=== PATIENT | female | born 1940 | race American Indian/Alaskan Native ===

== ENCOUNTER 2017-07-21 21:03 | Emergency (ER) | payer OTHER ==
--- NOTE | 2017-07-21 21:22 | EDM.PDOC ---
ED HPI GENERAL MEDICAL PROBLEM - General Chief Complaint: General Stated Complaint: back hurt [id number] Time Seen by Provider: 07/21/17 21:17 Source of Information: Reports: Patient, Family History Limitations: Reports: Altered Mental Status - History of Present Illness INITIAL COMMENTS - FREE TEXT/NARRATIVE: pt states recall sitting on toilet and woke up on the floor. family states heard pt calling for help and found her on the floor conscious but disoriented. pt unsure if her head really hurts just feels dizzy but her ankle does. pt appears somewhat disoriented presently. denies h/o seizures. denies chest pain at present. no SOB. - Related Data Allergies Allergy/AdvReac Type Severity Reaction Status Date / Time No Known Allergies Allergy Verified 07/21/17 21:08 Home Meds: Home Meds Amlodipine 10 mg PO ASDIRECTED 06/27/13 [History] Atenolol 50 mg PO ASDIRECTED 06/27/13 [History] Furosemide 20 mg PO ASDIRECTED 06/27/13 [History] Gabapentin 600 mg PO ASDIRECTED 06/27/13 [History] Latanoprost 1 drp EYEBOTH ASDIRECTED 06/27/13 [History] Naproxen [Naprosyn] 500 mg PO ASDIRECTED 06/27/13 [History] Omeprazole 20 mg PO DAILY 12/28/13 [History] Trospium Chloride 20 mg PO DAILY 07/21/17 [History] Social & Family History - Tobacco Use Smoking Status *Q: Never Smoker Second Hand Smoke Exposure: Yes - Alcohol Use Days Per Week of Alcohol Use: 0 - Recreational Drug Use Recreational Drug Use: No ED ROS GENERAL - Review of Systems Review Of Systems: ROS reveals no pertinent complaints other than HPI. ED EXAM, GENERAL - Physical Exam Exam: See Below Exam Limited By: No Limitations General Appearance: Alert, WD/WN, Mild Distress, Other (distraught) Eye Exam: Bilateral Eye: PERRL (pupils ess ER @ 4mm) Ears: Hearing Grossly Normal Head: Other (no O/B, no grossly palpable tenderness) Neck: Non-Tender, Full Range of Motion Respiratory/Chest: No Respiratory Distress Cardiovascular: Regular Rate, Rhythm GI/Abdominal: Soft, Non-Tender Neurological: Alert, Normal Cognition, Normal Gait, No Motor/Sensory Deficits Psychiatric: Flat Affect Skin Exam: Warm, Dry, Normal Color Lymphatic: No Adenopathy Course - Vital Signs Last Recorded V/S: Last Vital Signs Temp 35.8 C 07/21/17 21:10 Pulse 78 07/21/17 21:10 Resp 20 07/21/17 21:10 BP 125/59 L 07/21/17 21:10 Pulse Ox 94 L 07/21/17 21:10 - Orders/Labs/Meds Orders: Active Orders 24 hr Category Date Time Status EKG 12 Lead [EKG Documentation Completion] [RC] STAT Care 07/21/17 21:15 Active Sodium Chloride 0.9% [Normal Saline] 500 ml Med 07/21/17 22:15 Active IV .BOLUS Medication Orders Sodium Chloride (Normal Saline) 500 mls @ 999 mls/hr IV .BOLUS YUE Last Admin: 07/21/17 22:16 Dose: 999 mls/hr Labs: Laboratory Tests 07/21/17 07/21/17 Range/Units 21:25 21:25 WBC 10.5 H (5.0-10.0) 10^3/uL RBC 4.07 L (4.2-5.4) 10^6/uL Hgb 11.9 L (12.0-16.0) g/dL Hct 35.5 L (37.0-47.0) % MCV 87.2 (80-100) fL MCH 29.2 (27.0-34.0) pg MCHC 33.5 (33.0-35.0) g/dL Plt Count 208 D (150-450) 10^3/uL Neut % (Auto) 85.0 H (42.2-75.2) % Lymph % (Auto) 6.4 L (20.5-50.1) % [place] % (Auto) 7.0 (2-8) % Eos % (Auto) 1.5 (1.0-3.0) % Baso % (Auto) 0.1 (0.0-1.0) % Sodium 122 L (135-145) mmol/L Potassium 3.6 (3.6-5.0) mmol/L Chloride 88 L (101-111) mmol/L Carbon Dioxide 25.0 (21.0-31.0) mmol/L Anion Gap 12.6 BUN 11 (7-18) mg/dL Creatinine 0.6 (0.6-1.3) mg/dL Est Cr Clr Drug Dosing 74.67 mL/min Estimated GFR (MDRD) > 60 BUN/Creatinine Ratio 18.33 Glucose 182 H (74-105) mg/dL Calcium 8.6 (8.4-10.2) mg/dl Total Bilirubin 0.6 (0.2-1.0) mg/dL AST 24 (10-42) IU/L ALT 13 (10-60) IU/L Alkaline Phosphatase 121 (42-121) IU/L Troponin I < 0.02 (0.00-0.02) ng/ml Total Protein 7.2 (6.7-8.2) g/dl Albumin 3.4 (3.2-5.5) g/dl Globulin 3.8 Albumin/Globulin Ratio 0.89 Meds: Medications Generic Name Dose Route Start Last Admin Trade Name Freq PRN Reason Stop Dose Admin Sodium Chloride 500 mls @ 999 mls/hr 07/21/17 22:15 07/21/17 22:16 Normal Saline IV 999 mls/hr .BOLUS YUE Administration - Re-Assessments/Exams Free Text/Narrative Re-Assessment/Exam: 07/21/17 22:14 results discussed with pt & family. pt declined transf to GF and wants to go home. but family wishes pt could get IV here for low sodium. pt concurred. 07/21/17 23:04 s/p IV = much better and still prefers home. Departure - Departure Time of Disposition: 23:05 Disposition: Home, Self-Care 01 Condition: Good Clinical Impression: Hyponatremia syndrome Syncope Qualifiers: Syncope type: unspecified Qualified Code(s): R55 - Syncope and collapse - Discharge Information Instructions: Near-Syncope, [id number] Forms: ED Department Discharge Additional Instructions: 1) rest 2) return if there is any change or concern 3) see clinic Sunday to determine if LASIX can be stopped or decrease to treat her low sodium - My Orders Last 24 Hours: My Active Orders 07/21/17 21:15 EKG 12 Lead [EKG Documentation Completion] [RC] STAT 07/21/17 22:15 Sodium Chloride 0.9% [Normal Saline] 500 ml IV .BOLUS - Assessment/Plan Last 24 Hours: My Active Orders 07/21/17 21:15 EKG 12 Lead [EKG Documentation Completion] [RC] STAT 07/21/17 22:15 Sodium Chloride 0.9% [Normal Saline] 500 ml IV .BOLUS
[2017-07-21 21:50] LABS: CHLORIDE,CL 88 mmol/L (101-111); SODIUM,NA 122 mmol/L (135-145)
[2017-07-21] MEDS ORDERED: Sodium Chloride 0.9% 500 ML IV SCH (22:15)
--- NOTE | 2017-07-23 12:08 | EKG ---
07/21/2017 - KANA WOODY - FINDINGS: A 12-lead EKG shows normal sinus rhythm with heart rate of 77. No significant ST elevation or ST depression noted at this time, but nonspecific T- wave noted on all the lateral leads from V1 to V6 with T-wave inversions and nonspecific interventricular conduction delay noted. [facility] /[id number]
== END 2017-07-21 23:10 | disposition home or self-care (01) ==
LOC: DL.ED 21:03
DX: E22.2 Syndrome of inappropriate secretion of antidiuretic hormone (principal); R55 Syncope and collapse; Z79.899 Other long term (current) drug therapy
CPT/HCPCS: 36415; 70450; 73600; 80053; 84484; 85025; 93005; 96360; 99285; J7040

== ENCOUNTER 2017-07-24 17:29 | Inpatient (IN) | payer OTHER ==
[2017-07-24] MEDS ORDERED: Albuterol/Ipratropium 3.0-0.5 MG/3 ML Neb Soln NEB ONE (17:51)
[2017-07-24] MEDS ORDERED: Ondansetron 4 MG/2 ML SDV IV ONE (18:00)
[2017-07-24] MEDS ORDERED: Sodium Chloride 0.9% 1,000 ML IV ONE (18:00)
[2017-07-24] MEDS ORDERED: methylPREDNISolone Sodium Succinate 125 MG/2 ML SDV IVPUSH ONE (18:00)
[2017-07-24] MEDS: Sodium Chloride 0.9% 10 ML Syringe FLUSH PRN (18:36)
[2017-07-24] MEDS ORDERED: Levofloxacin/Dextrose 5%-Water 750 MG in Premix Bag 1 BAG IV ONE (18:53)
[2017-07-24 18:57] LABS: CHLORIDE,CL 92 mmol/L (101-111); SODIUM,NA 126 mmol/L (135-145)
--- NOTE | 2017-07-24 19:02 | EDM.PDOC ---
Scribed by Sirena Gordon 07/24/17 190 for Ronald Diaz MD ED HPI GENERAL MEDICAL PROBLEM - General Chief Complaint: Respiratory Problem Stated Complaint: [id number] KEEP COUGHING Time Seen by Provider: 07/24/17 17:49 Source of Information: Reports: Patient, RN, RN Notes Reviewed History Limitations: Reports: No Limitations - History of Present Illness INITIAL COMMENTS - FREE TEXT/NARRATIVE: Patient presents from home by private vehicle with complaint of cough since July 19. She has had fever, chills, sputum production, wheezing, nausea, loss of appetite, and generalized weakness. Patient states that she got weak and fell to the floor on July 21 and seen in the emergency room at that time. She did not complain or say anything about her cough. She was diagnosed with syncope , but refused to be transferred to admitted at that time. She was found to be hyponatremic with a sodium of 122. Denies chest pain or edema. Denies history of asthma or COPD. Patient was never a smoker, but had near constant second hand smoke exposure for nearly over 50 years. Onset: Gradual Duration: Getting Worse Location: Reports: Chest Quality: Reports: Ache Severity: Severe Improves with: Reports: None Worsens with: Reports: None Associated Symptoms: Reports: No Other Symptoms - Related Data Allergies Allergy/AdvReac Type Severity Reaction Status Date / Time No Known Allergies Allergy Verified 07/24/17 17:48 Home Meds: Home Meds Amlodipine 10 mg PO ASDIRECTED 06/27/13 [History] Atenolol 50 mg PO ASDIRECTED 06/27/13 [History] Furosemide 20 mg PO ASDIRECTED 06/27/13 [History] Gabapentin 600 mg PO ASDIRECTED 06/27/13 [History] Latanoprost 1 drp EYEBOTH ASDIRECTED 06/27/13 [History] Naproxen [Naprosyn] 500 mg PO ASDIRECTED 06/27/13 [History] Omeprazole 20 mg PO DAILY 12/28/13 [History] Trospium Chloride 20 mg PO DAILY 07/21/17 [History] Past Medical History Cardiovascular History: Reports: Hypertension Genitourinary History: Reports: UTI, Recurrent Musculoskeletal History: Reports: Back Pain, Chronic - Past Surgical History Female Surgical History: Reports: Ureteral Stent Social & Family History - Family History Family Medical History: Noncontributory - Tobacco Use Smoking Status *Q: Never Smoker Second Hand Smoke Exposure: Yes - Caffeine Use Caffeine Use: Reports: None - Alcohol Use Days Per Week of Alcohol Use: 0 - Recreational Drug Use Recreational Drug Use: No - Living Situation & Occupation Living situation: Reports: with Family Occupation: Retired ED ROS GENERAL - Review of Systems Review Of Systems: ROS reveals no pertinent complaints other than HPI. ED EXAM, GENERAL - Physical Exam Exam: See Below Exam Limited By: No Limitations General Appearance: Alert, No Apparent Distress, Obese, Other (acutely ill but non-toxic appearing elderly female. ) Eye Exam: Bilateral Eye: Normal Inspection Ears: Normal External Exam, Normal Canal, Hearing Grossly Normal, Normal TMs Nose: Normal Inspection, Normal Mucosa, No Blood Throat/Mouth: Other (dry oral membranes and mild pharyngeal edema.) Head: Atraumatic, Normocephalic Neck: Normal Inspection, Supple, Non-Tender, Full Range of Motion Respiratory/Chest: No Respiratory Distress, No Accessory Muscle Use, Chest Non- Tender, Decreased Breath Sounds, Crackles, Rhonchi, Wheezing. No: Splinting Cardiovascular: Regular Rate, Rhythm, Tachycardia GI/Abdominal: Other (benign obese abdomen) (Female) Exam: Deferred Rectal (Female) Exam: Deferred Back Exam: Normal Inspection, Full Range of Motion, NT Extremities: No Pedal Edema Neurological: Alert, Oriented, CN II-XII Intact, Normal Cognition, Normal Gait, Normal Reflexes, No Motor/Sensory Deficits Psychiatric: Normal Affect, Normal Mood Skin Exam: Warm, Dry, Intact, Normal Color, No Rash Course - Vital Signs Last Recorded V/S: Last Vital Signs Temp 38.1 C 07/24/17 17:48 Pulse 94 07/24/17 17:48 Resp 20 07/24/17 17:48 BP 124/96 H 07/24/17 17:48 Pulse Ox 84 L 07/24/17 17:48 - Orders/Labs/Meds Orders: Active Orders 24 hr Category Date Time Status Peripheral IV Care [RC] . DIRECTED Care 07/24/17 17:50 Active RT Aerosol Therapy [RC] ASDIRECTED Care 07/24/17 17:51 Active B-TYPE NATRIURETIC PEPTIDE,BNP [CHEM] Stat Lab 07/24/17 18:20 Results COMPREHENSIVE METABOLIC PN,CMP [CHEM] Stat Lab 07/24/17 18:20 Results CULTURE BLOOD [BC] Stat Lab 07/24/17 18:20 Received CULTURE BLOOD [] Stat Lab 07/24/17 18:28 Received CULTURE STREP A CONFIRMATION [] Stat Lab 07/24/17 17:30 Results STREP SCRN A RAPID W CULT CONF [] Stat Lab 07/24/17 17:30 Results UA W/MICROSCOPIC [URIN] Stat Lab 07/24/17 17:49 Ordered Levofloxacin/Dextrose 5%-Water [Levaquin in D5W 750 MG/ Med 07/24/17 18:53 Active 150 ML] 750 mg Premix Bag 1 bag IV ONETIME Sodium Chloride 0.9% [Saline Flush] Med 07/24/17 17:49 Active 10 ml FLUSH ASDIRECTED PRN Blood Culture x2 Reflex Set [OM.PC] Stat Oth 07/24/17 17:49 Ordered Peripheral IV Insertion Adult [OM.PC] Stat Oth 07/24/17 17:49 Ordered Medication Orders Levofloxacin/Dextrose 750 mg/ (Premix) 150 mls @ 100 mls/hr IV ONETIME ONE Stop: 07/24/17 20:22 Sodium Chloride (Saline Flush) 10 ml FLUSH ASDIRECTED PRN PRN Reason: Keep Vein Open Last Admin: 07/24/17 18:36 Dose: 10 ml Labs: Laboratory Tests 07/24/17 07/24/17 07/24/17 Range/Units 18:20 18:20 18:20 WBC 13.5 H (5.0-10.0) 10^3/uL RBC 4.26 (4.2-5.4) 10^6/uL Hgb 12.4 (12.0-16.0) g/dL Hct 38.1 (37.0-47.0) % MCV 89.4 (80-100) fL MCH 29.1 (27.0-34.0) pg MCHC 32.5 L (33.0-35.0) g/dL Plt Count 205 (150-450) 10^3/uL Neut % (Auto) 86.4 H (42.2-75.2) % Lymph % (Auto) 5.6 L (20.5-50.1) % [place] % (Auto) 7.8 (2-8) % Eos % (Auto) 0.1 L (1.0-3.0) % Baso % (Auto) 0.1 (0.0-1.0) % Sodium 126 L (135-145) mmol/L Potassium 3.7 (3.6-5.0) mmol/L Chloride 92 L (101-111) mmol/L Carbon Dioxide 27.0 (21.0-31.0) mmol/L Anion Gap 10.7 BUN 9 (7-18) mg/dL Creatinine 0.6 (0.6-1.3) mg/dL Est Cr Clr Drug Dosing 74.67 mL/min Estimated GFR (MDRD) > 60 BUN/Creatinine Ratio 15.00 Glucose 134 H (74-105) mg/dL Lactic Acid 1.5 (0.5-2.2) mmol/L Calcium 9.0 (8.4-10.2) mg/dl Total Bilirubin 1.0 (0.2-1.0) mg/dL AST 21 (10-42) IU/L ALT 13 (10-60) IU/L Alkaline Phosphatase 111 (42-121) IU/L Total Protein 7.9 (6.7-8.2) g/dl Albumin 3.3 (3.2-5.5) g/dl Globulin 4.6 Albumin/Globulin Ratio 0.72 Rapid strep: Negative. Influenza A/B: Negative Meds: Medications Generic Name Dose Route Start Last Admin Trade Name Freq PRN Reason Stop Dose Admin Levofloxacin/Dextrose 750 mg/ 150 mls @ 100 mls/hr 07/24/17 18:53 Premix IV 07/24/17 20:22 ONETIME ONE Sodium Chloride 10 ml 07/24/17 17:49 07/24/17 18:36 Saline Flush FLUSH 10 ml ASDIRECTED PRN Administration Keep Vein Open Discontinued Medications Generic Name Dose Route Start Last Admin Trade Name Freq PRN Reason Stop Dose Admin Albuterol/Ipratropium 3 ml 07/24/17 17:51 07/24/17 18:30 Duoneb 3.0-0.5 Mg/3 Ml NEB 07/24/17 17:52 3 ml ONETIME ONE Administration Sodium Chloride 1,000 mls @ 999 mls/hr 07/24/17 18:00 07/24/17 18:36 Normal Saline IV 07/24/17 19:00 999 mls/hr .BOLUS ONE Administration Methylprednisolone Sodium Succinate 125 mg 07/24/17 18:00 07/24/17 18:36 Solu-Medrol IVPUSH 07/24/17 18:01 125 mg ONETIME ONE Administration Ondansetron HCl 4 mg 07/24/17 18:00 07/24/17 18:36 Zofran IV 07/24/17 18:01 4 mg ONETIME ONE Administration - Radiology Interpretation Free Text/Narrative:: Chest x-ray: Bibasilar atelectasis with possible infiltrate in the right lower lobe. See rad report. Departure - Departure Time of Disposition: 19:01 (admitted to Dr. Ta) Disposition: Admitted As Inpatient 66 Condition: Fair Clinical Impression: Chronic obstructive pulmonary disease with acute exacerbation, Hypoxia, Hyponatremia Pneumonia Qualifiers: Pneumonia type: due to unspecified organism Laterality: right Lung location: lower lobe of lung Qualified Code(s): J18.1 - Lobar pneumonia, unspecified organism - Discharge Information Forms: ED Department Discharge - My Orders Last 24 Hours: My Active Orders 07/24/17 17:30 CULTURE STREP A CONFIRMATION [RM] Stat STREP SCRN A RAPID W CULT CONF [RM] Stat 07/24/17 17:49 UA W/MICROSCOPIC [URIN] Stat Sodium Chloride 0.9% [Saline Flush] 10 ml FLUSH ASDIRECTED PRN Blood Culture x2 Reflex Set [OM.PC] Stat Peripheral IV Insertion Adult [OM.PC] Stat 07/24/17 17:50 Peripheral IV Care [RC] . DIRECTED 07/24/17 17:51 RT Aerosol Therapy [RC] ASDIRECTED 07/24/17 18:20 B-TYPE NATRIURETIC PEPTIDE,BNP [CHEM] Stat COMPREHENSIVE METABOLIC PN,CMP [CHEM] Stat CULTURE BLOOD [BC] Stat 07/24/17 18:28 CULTURE BLOOD [BC] Stat 07/24/17 18:53 Levofloxacin/Dextrose 5%-Water [Levaquin in D5W 750 MG/150 ML] 750 mg Premix Bag 1 bag IV ONETIME - Assessment/Plan Last 24 Hours: My Active Orders 07/24/17 17:30 CULTURE STREP A CONFIRMATION [RM] Stat STREP SCRN A RAPID W CULT CONF [RM] Stat 07/24/17 17:49 UA W/MICROSCOPIC [URIN] Stat Sodium Chloride 0.9% [Saline Flush] 10 ml FLUSH ASDIRECTED PRN Blood Culture x2 Reflex Set [OM.PC] Stat Peripheral IV Insertion Adult [OM.PC] Stat 07/24/17 17:50 Peripheral IV Care [RC] . DIRECTED 07/24/17 17:51 RT Aerosol Therapy [RC] ASDIRECTED 07/24/17 18:20 B-TYPE NATRIURETIC PEPTIDE,BNP [CHEM] Stat COMPREHENSIVE METABOLIC PN,CMP [CHEM] Stat CULTURE BLOOD [BC] Stat 07/24/17 18:28 CULTURE BLOOD [BC] Stat 07/24/17 18:53 Levofloxacin/Dextrose 5%-Water [Levaquin in D5W 750 MG/150 ML] 750 mg Premix Bag 1 bag IV ONETIME I have read and agree with the documentation that has been completed regarding this visit. By signing this record, I attest that the documentation was completed in my physical presence and is an accurate record of the encounter.
[2017-07-24] MEDS ORDERED: cefTRIAXone 1 GM in Sodium Chloride 0.9% 50 ML IV SCH (20:00)
[2017-07-24] MEDS ORDERED: Zolpidem 5 MG Tab PO PRN (20:12)
[2017-07-24] MEDS ORDERED: Sodium Chloride 0.9% 1,000 ML IV SCH (20:15)
--- NOTE | 2017-07-24 20:29 | PCM.HP ---
H&P History of Present Illness - General Date of Service: 07/24/17 Admit Problem/Dx: Admission Diagnosis/Problem Admission Diagnosis/Problem Pneumonia Source of Information: Patient, Provider (ER) - History of Present Illness Initial Comments - Free Text/Narative: The patient is a 76-year-old lady with a history of secondhand smoking exposure , hypertension, overactive bladder. In the past few days the patient has been experiencing subjective the chills, temperature up to 100, increasing shortness of breath. She has a cough which is mostly nonproductive. Similar symptoms present in another family member. Family member was diagnosed with sinusitis. The patient recently had a ER visit for a possible syncopal episode. She was also noted to have hyponatremia. She denies chest pain, headache, further syncopal episodes. - Related Data Allergies/Adverse Reactions: Allergies Allergy/AdvReac Type Severity Reaction Status Date / Time No Known Allergies Allergy Verified 07/24/17 20:17 Home Medications: Home Meds Amlodipine 10 mg PO ASDIRECTED 06/27/13 [History] Atenolol 50 mg PO ASDIRECTED 06/27/13 [History] Furosemide 20 mg PO ASDIRECTED 06/27/13 [History] Gabapentin 600 mg PO ASDIRECTED 06/27/13 [History] Latanoprost 1 drp EYEBOTH ASDIRECTED 06/27/13 [History] Naproxen [Naprosyn] 500 mg PO ASDIRECTED 06/27/13 [History] Omeprazole 20 mg PO DAILY 12/28/13 [History] Trospium Chloride 20 mg PO DAILY 07/21/17 [History] Past Medical History HEENT History: Reports: Impaired Vision Cardiovascular History: Reports: Hypertension Gastrointestinal History: Reports: GERD Genitourinary History: Reports: UTI, Recurrent [employer] History: Reports: Musculoskeletal History: Reports: Back Pain, Chronic - Past Surgical History Female Surgical History: Reports: Ureteral Stent Social & Family History - Family History Family Medical History: Noncontributory - Tobacco Use Smoking Status *Q: Never Smoker Second Hand Smoke Exposure: No - Caffeine Use Caffeine Use: Reports: None - Alcohol Use Days Per Week of Alcohol Use: 0 - Recreational Drug Use Recreational Drug Use: No - Living Situation & Occupation Living situation: Reports: with Family Occupation: Retired H&P Review of Systems - Review of Systems: Review Of Systems: See Below General: Reports: Fever (Up to 100), Malaise, Weakness Pulmonary: Reports: Shortness of Breath, Wheezing, Cough. Denies: Sputum Cardiovascular: Denies: Chest Pain Gastrointestinal: Denies: Abdominal Pain Genitourinary: Denies: Dysuria Skin: Reports: Rash (Developed rash after starting the administration of levofloxacin) Psychiatric: Denies: Confusion Neurological: Denies: Dizziness Exam - Exam Exam: See Below - Vital Signs Vital Signs: Last Vital Signs Temp 37.4 C 07/24/17 19:46 Pulse 103 H 07/24/17 19:46 Resp 16 07/24/17 19:46 BP 133/49 L 07/24/17 19:46 Pulse Ox 85 L 07/24/17 19:46 Weight: 92.193 kg - Exam Quality Assessment: Supplemental Oxygen General: Alert, Oriented Neck: Supple Lungs: Normal Respiratory Effort, Decreased Breath Sounds, Rhonchi (Bilateral) Cardiovascular: Regular Rate, Regular Rhythm GI/Abdominal Exam: Normal Bowel Sounds, Soft, Non-Tender Extremities: No Pedal Edema Skin: Warm, Dry Neuro Extensive - Mental Status: Alert, Oriented x3, Normal Mood/Affect Neuro Extensive - Motor, Sensory, Reflexes: Normal Gait - Patient Data Lab Results Last 24 hrs: Laboratory Results - last 24 hr 07/24/17 07/24/17 07/24/17 Range/Units 18:20 18:20 18:20 WBC 13.5 H (5.0-10.0) 10^3/uL RBC 4.26 (4.2-5.4) 10^6/uL Hgb 12.4 (12.0-16.0) g/dL Hct 38.1 (37.0-47.0) % MCV 89.4 (80-100) fL MCH 29.1 (27.0-34.0) pg MCHC 32.5 L (33.0-35.0) g/dL Plt Count 205 (150-450) 10^3/uL Neut % (Auto) 86.4 H (42.2-75.2) % Lymph % (Auto) 5.6 L (20.5-50.1) % [place] % (Auto) 7.8 (2-8) % Eos % (Auto) 0.1 L (1.0-3.0) % Baso % (Auto) 0.1 (0.0-1.0) % Sodium 126 L (135-145) mmol/L Potassium 3.7 (3.6-5.0) mmol/L Chloride 92 L (101-111) mmol/L Carbon Dioxide 27.0 (21.0-31.0) mmol/L Anion Gap 10.7 BUN 9 (7-18) mg/dL Creatinine 0.6 (0.6-1.3) mg/dL Est Cr Clr Drug Dosing 74.67 mL/min Estimated GFR (MDRD) > 60 BUN/Creatinine Ratio 15.00 Glucose 134 H (74-105) mg/dL Lactic Acid 1.5 (0.5-2.2) mmol/L Calcium 9.0 (8.4-10.2) mg/dl Total Bilirubin 1.0 (0.2-1.0) mg/dL AST 21 (10-42) IU/L ALT 13 (10-60) IU/L Alkaline Phosphatase 111 (42-121) IU/L B-Natriuretic Peptide 74 (0-100) pg/ml Total Protein 7.9 (6.7-8.2) g/dl Albumin 3.3 (3.2-5.5) g/dl Globulin 4.6 Albumin/Globulin Ratio 0.72 Urine Color (YELLOW) Urine Appearance (CLEAR) Urine pH (5.0-9.0) Ur Specific [place] (1.005-1.030) Urine Protein (NEGATIVE) Urine Glucose (UA) (NEGATIVE) Urine Ketones (NEGATIVE) Urine Occult Blood (NEGATIVE) Urine Nitrite (NEGATIVE) Urine Bilirubin (NEGATIVE) Urine Urobilinogen (0.2-1.0) mg/dL Ur Leukocyte Esterase (NEGATIVE) 07/24/17 Range/Units 19:28 WBC (5.0-10.0) 10^3/uL RBC (4.2-5.4) 10^6/uL Hgb (12.0-16.0) g/dL Hct (37.0-47.0) % MCV (80-100) fL MCH (27.0-34.0) pg MCHC (33.0-35.0) g/dL Plt Count (150-450) 10^3/uL Neut % (Auto) (42.2-75.2) % Lymph % (Auto) (20.5-50.1) % [place] % (Auto) (2-8) % Eos % (Auto) (1.0-3.0) % Baso % (Auto) (0.0-1.0) % Sodium (135-145) mmol/L Potassium (3.6-5.0) mmol/L Chloride (101-111) mmol/L Carbon Dioxide (21.0-31.0) mmol/L Anion Gap BUN (7-18) mg/dL Creatinine (0.6-1.3) mg/dL Est Cr Clr Drug Dosing mL/min Estimated GFR (MDRD) BUN/Creatinine Ratio Glucose (74-105) mg/dL Lactic Acid (0.5-2.2) mmol/L Calcium (8.4-10.2) mg/dl Total Bilirubin (0.2-1.0) mg/dL AST (10-42) IU/L ALT (10-60) IU/L Alkaline Phosphatase (42-121) IU/L B-Natriuretic Peptide (0-100) pg/ml Total Protein (6.7-8.2) g/dl Albumin (3.2-5.5) g/dl Globulin Albumin/Globulin Ratio Urine Color Yellow (YELLOW) Urine Appearance Slightly cloudy (CLEAR) Urine pH 7.0 (5.0-9.0) Ur Specific [place] 1.020 (1.005-1.030) Urine Protein 100 H (NEGATIVE) Urine Glucose (UA) Negative (NEGATIVE) Urine Ketones Negative (NEGATIVE) Urine Occult Blood Large H (NEGATIVE) Urine Nitrite Negative (NEGATIVE) Urine Bilirubin Small H (NEGATIVE) Urine Urobilinogen 0.2 (0.2-1.0) mg/dL Ur Leukocyte Esterase Small H (NEGATIVE) Result Diagrams: 07/24/17 18:20 07/24/17 18:20 Thaddeus Results Last 24 hrs: Microbiology 07/24/17 17:30 Influenza Type A Antigen Screen - Final Nasal, Unspecified NEGATIVE INFLUENZA A VIRUS AG Influenza Type B Antigen Screen - Final NEGATIVE INFLUENZA B VIRUS AG 07/24/17 17:30 Group A Streptococcus Rapid Screen - Final Throat NEGATIVE STREP A SCREEN Problem List Initiated/Reviewed/Updated: Yes Orders Last 24hrs: Active Orders 24 hr Category Date Time Status Patient Status [ADT] Routine ADT 07/24/17 20:12 Ordered Oxygen Therapy [RC] PRN Care 07/24/17 20:12 Ordered Peripheral IV Care [RC] . DIRECTED Care 07/24/17 17:50 Active RT Aerosol Therapy [RC] ASDIRECTED Care 07/24/17 17:51 Active Up With Assistance [RC] ASDIRECTED Care 07/24/17 20:12 Ordered VTE/DVT Education [RC] PER UNIT ROUTINE Care 07/24/17 20:12 Ordered Vital Signs [RC] Q4H Care 07/24/17 20:12 Ordered Regular Diet [DIET] Diet 07/24/17 Breakfast Ordered BASIC METABOLIC PANEL,BMP [CHEM] AM Lab 07/25/17 05:15 Ordered CBC WITH AUTO DIFF [HEME] AM Lab 07/25/17 05:15 Ordered CULTURE BLOOD [BC] Stat Lab 07/24/17 18:20 Received CULTURE BLOOD [BC] Stat Lab 07/24/17 18:28 Received CULTURE SPUTUM + SMEAR [RM] Routine Lab 07/24/17 20:00 Ordered CULTURE STREP A CONFIRMATION [] Stat Lab 07/24/17 17:30 Results STREP SCRN A RAPID W CULT CONF [RM] Stat Lab 07/24/17 17:30 Results UA W/MICROSCOPIC [URIN] Stat Lab 07/24/17 19:28 Ordered Acetaminophen [Tylenol] Med 07/24/17 20:12 Ordered 650 mg PO Q4H PRN Amlodipine Med 07/25/17 09:00 Ordered 10 mg PO DAILY Atenolol Med 07/25/17 09:00 Ordered 50 mg PO DAILY Azithromycin [Zithromax] 500 mg Med 07/24/17 20:15 Ordered Sodium Chloride 0.9% [Normal Saline] 250 ml IV Q24H Furosemide [Lasix] Med 07/25/17 09:00 Ordered 20 mg PO DAILY Heparin Sodium Med 07/24/17 22:00 Ordered 5,000 units SUBCUT Q8HR Latanoprost [Xalatan 0.005% Ophth Soln] Med 07/24/17 21:00 Ordered 1 drp EYEBOTH BID Omeprazole Med 07/25/17 09:00 Ordered 20 mg PO DAILY Sodium Chloride 0.9% [Normal Saline] 1,000 ml Med 07/24/17 20:15 Ordered IV ASDIRECTED Sodium Chloride 0.9% [Saline Flush] Med 07/24/17 17:49 Active 10 ml FLUSH ASDIRECTED PRN Zolpidem [Ambien] Med 07/24/17 20:12 Ordered 5 mg PO BEDTIME PRN cefTRIAXone [Rocephin] 1,000 mg Med 07/24/17 20:15 Ordered Sodium Chloride 0.9% [Normal Saline] 50 ml IV Q24H methylPREDNISolone Sod Succ [Solu-MEDROL] Med 07/24/17 20:15 Ordered 40 mg IVPUSH Q8H Antiembolic Hose [OM.PC] Per Unit Routine Oth 07/24/17 20:13 Ordered Blood Culture x2 Reflex Set [OM.PC] Stat Oth 07/24/17 17:49 Ordered Peripheral IV Insertion Adult [OM.PC] Stat Oth 07/24/17 17:49 Ordered Resuscitation Status Routine Resus Stat 07/24/17 20:12 Ordered Medication Orders Acetaminophen (Tylenol) 650 mg PO Q4H PRN PRN Reason: Pain (Mild 1-3)/fever Amlodipine Besylate (Norvasc) 10 mg PO DAILY [facility] Furosemide (Lasix) 20 mg PO DAILY [facility]UE Heparin Sodium (Porcine) (Heparin Sodium) 5,000 units SUBCUT Q8HR [facility]UE Azithromycin 500 mg/ Sodium (Chloride) 250 mls @ 250 mls/hr IV Q24H YUE Ceftriaxone Sodium 1 gm/ (Sodium Chloride) 50 mls @ 100 mls/hr IV Q24H YUE Sodium Chloride (Normal Saline) 1,000 mls @ 75 mls/hr IV ASDIRECTED YUE Latanoprost (Xalatan 0.005% Ophth Soln) ml EYEBOTH BID YUE Methylprednisolone Sodium Succinate (Solu-Medrol) 40 mg IVPUSH Q8H [facility] Non-Formulary Medication (Atenolol ) 50 mg PO DAILY YUE Omeprazole (Omeprazole) 20 mg PO DAILY YUE Sodium Chloride (Saline Flush) 10 ml FLUSH ASDIRECTED PRN PRN Reason: Keep Vein Open Last Admin: 07/24/17 18:36 Dose: 10 ml Zolpidem Tartrate (Ambien) 5 mg PO BEDTIME PRN PRN Reason: Sleep Assessment/Plan Comment:: 76-year-old lady with a history of secondhand smoke exposure. History of hypertension. Recently noted hyponatremia. Presented with cough, subjective fever, leukocytosis. #1 acute community-acquired pneumonia Chest x-ray showed right-sided infiltrate We will obtain sputum culture, blood culture Treat empirically with azithromycin and Rocephin Had a localized rash developing at the site of administration of levofloxacin, that was discontinued, rash did not spread. In the ER there was concern for wheezing as well. She received IV steroids. Will use DuoNeb as needed for shortness of breath #2 hyponatremia Likely acute on chronic Will give IV hydration due to low oral intake Monitor electrolytes #3 hypertension Treat with Norvasc #4 DVT prophylaxis will be with subcutaneous heparin
[2017-07-24] MEDS: Azithromycin 500 MG in Sodium Chloride 0.9% 250 ML IV SCH (20:33)
[2017-07-24] MEDS: Acetaminophen 325 MG Tab PO PRN (20:36)
[2017-07-24] MEDS: Latanoprost 0.005% Ophth Soln 2.5 ML Bottle EYEBOTH SCH (21:45)
[2017-07-24] MEDS: Heparin Sodium 5,000 Units/ML Vial SUBCUT SCH (21:48)
[2017-07-25] MEDS: methylPREDNISolone Sodium Succinate 40 MG/1 ML SDV IVPUSH SCH ×3 (01:34→17:32)
[2017-07-25] MEDS: Sodium Chloride 0.9% 10 ML Syringe FLUSH PRN ×2 (01:34→17:32)
[2017-07-25] MEDS: Heparin Sodium 5,000 Units/ML Vial SUBCUT SCH ×3 (05:53→21:16)
[2017-07-25 07:02] LABS: CHLORIDE,CL 97 mmol/L (101-111); SODIUM,NA 132 mmol/L (135-145)
[2017-07-25] MEDS: Atenolol 50 MG Tab PO SCH (09:03)
[2017-07-25] MEDS: Omeprazole 20 MG Cap.CR PO SCH (09:03)
[2017-07-25] MEDS: Furosemide 20 MG Tab PO SCH (09:04)
[2017-07-25] MEDS: amLODIPine 5 MG Tab PO SCH (09:04)
[2017-07-25] MEDS: Latanoprost 0.005% Ophth Soln 2.5 ML Bottle EYEBOTH SCH ×2 (09:09→20:22)
--- NOTE | 2017-07-25 11:07 | PCM.PN ---
- General Info Date of Service: 07/25/17 Admission Dx/Problem (Free Text): Admission Diagnosis/Problem Admission Diagnosis/Problem Pneumonia Functional Status: Reports: Tolerating Diet - Review of Systems General: Reports: Malaise. Denies: Fever Pulmonary: Reports: Shortness of Breath, Cough, Sputum Cardiovascular: Denies: Chest Pain Gastrointestinal: Denies: Abdominal Pain Genitourinary: Denies: Dysuria Neurological: Denies: Confusion Psychiatric: Denies: Mood Lability - Patient Data Vitals - Most Recent: Last Vital Signs Temp 36.9 C 07/25/17 07:48 Pulse 68 07/25/17 09:03 Resp 20 07/25/17 07:48 BP 120/56 L 07/25/17 09:04 Pulse Ox 98 07/25/17 07:48 Weight - Most Recent: 92.193 kg I&O - Last 24 Hours: Intake & Output 07/24/17 07/25/17 07/25/17 22:59 06:59 14:59 Intake Total 1210 776 Output Total 100 1050 700 Balance 1110 274 -700 Lab Results Last 24 Hours: Laboratory Results - last 24 hr 07/24/17 07/24/17 07/24/17 Range/Units 18:20 18:20 18:20 WBC 13.5 H (5.0-10.0) 10^3/uL RBC 4.26 (4.2-5.4) 10^6/uL Hgb 12.4 (12.0-16.0) g/dL Hct 38.1 (37.0-47.0) % MCV 89.4 (80-100) fL MCH 29.1 (27.0-34.0) pg MCHC 32.5 L (33.0-35.0) g/dL Plt Count 205 (150-450) 10^3/uL Neut % (Auto) 86.4 H (42.2-75.2) % Lymph % (Auto) 5.6 L (20.5-50.1) % [place] % (Auto) 7.8 (2-8) % Eos % (Auto) 0.1 L (1.0-3.0) % Baso % (Auto) 0.1 (0.0-1.0) % Sodium 126 L (135-145) mmol/L Potassium 3.7 (3.6-5.0) mmol/L Chloride 92 L (101-111) mmol/L Carbon Dioxide 27.0 (21.0-31.0) mmol/L Anion Gap 10.7 BUN 9 (7-18) mg/dL Creatinine 0.6 (0.6-1.3) mg/dL Est Cr Clr Drug Dosing 74.67 mL/min Estimated GFR (MDRD) > 60 BUN/Creatinine Ratio 15.00 Glucose 134 H (74-105) mg/dL Lactic Acid 1.5 (0.5-2.2) mmol/L Calcium 9.0 (8.4-10.2) mg/dl Total Bilirubin 1.0 (0.2-1.0) mg/dL AST 21 (10-42) IU/L ALT 13 (10-60) IU/L Alkaline Phosphatase 111 (42-121) IU/L B-Natriuretic Peptide 74 (0-100) pg/ml Total Protein 7.9 (6.7-8.2) g/dl Albumin 3.3 (3.2-5.5) g/dl Globulin 4.6 Albumin/Globulin Ratio 0.72 Urine Color (YELLOW) Urine Appearance (CLEAR) Urine pH (5.0-9.0) Ur Specific [place] (1.005-1.030) Urine Protein (NEGATIVE) Urine Glucose (UA) (NEGATIVE) Urine Ketones (NEGATIVE) Urine Occult Blood (NEGATIVE) Urine Nitrite (NEGATIVE) Urine Bilirubin (NEGATIVE) Urine Urobilinogen (0.2-1.0) mg/dL Ur Leukocyte Esterase (NEGATIVE) Urine RBC /HPF Urine WBC (0-5/HPF) /HPF Ur Epithelial Cells /HPF Urine Bacteria (0-FEW/HPF) /HPF Urine Mucus /LPF 07/24/17 07/25/17 07/25/17 Range/Units 19:28 06:12 06:12 WBC 10.8 H (5.0-10.0) 10^3/uL RBC 3.94 L (4.2-5.4) 10^6/uL Hgb 11.4 L (12.0-16.0) g/dL Hct 35.4 L (37.0-47.0) % MCV 89.8 (80-100) fL MCH 28.9 (27.0-34.0) pg MCHC 32.2 L (33.0-35.0) g/dL Plt Count 170 (150-450) 10^3/uL Neut % (Auto) 92.7 H (42.2-75.2) % Lymph % (Auto) 4.9 L (20.5-50.1) % [place] % (Auto) 2.4 (2-8) % Eos % (Auto) 0.0 L (1.0-3.0) % Baso % (Auto) 0.0 (0.0-1.0) % Sodium 132 L (135-145) mmol/L Potassium 4.3 (3.6-5.0) mmol/L Chloride 97 L (101-111) mmol/L Carbon Dioxide 28.0 (21.0-31.0) mmol/L Anion Gap 11.3 BUN 8 (7-18) mg/dL Creatinine 0.5 L (0.6-1.3) mg/dL Est Cr Clr Drug Dosing 93.08 mL/min Estimated GFR (MDRD) > 60 BUN/Creatinine Ratio Glucose 142 H (74-105) mg/dL Lactic Acid (0.5-2.2) mmol/L Calcium 8.9 (8.4-10.2) mg/dl Total Bilirubin (0.2-1.0) mg/dL AST (10-42) IU/L ALT (10-60) IU/L Alkaline Phosphatase (42-121) IU/L B-Natriuretic Peptide (0-100) pg/ml Total Protein (6.7-8.2) g/dl Albumin (3.2-5.5) g/dl Globulin Albumin/Globulin Ratio Urine Color Yellow (YELLOW) Urine Appearance Slightly cloudy (CLEAR) Urine pH 7.0 (5.0-9.0) Ur Specific [place] 1.020 (1.005-1.030) Urine Protein 100 H (NEGATIVE) Urine Glucose (UA) Negative (NEGATIVE) Urine Ketones Negative (NEGATIVE) Urine Occult Blood Large H (NEGATIVE) Urine Nitrite Negative (NEGATIVE) Urine Bilirubin Small H (NEGATIVE) Urine Urobilinogen 0.2 (0.2-1.0) mg/dL Ur Leukocyte Esterase Small H (NEGATIVE) Urine RBC 75-100 H /HPF Urine WBC 20-30 H (0-5/HPF) /HPF Ur Epithelial Cells Many H /HPF Urine Bacteria Moderate H (0-FEW/HPF) /HPF Urine Mucus Moderate H /LPF Thaddeus Results Last 24 Hours: Microbiology 07/24/17 17:30 Quick Strep Confirmation Culture - Final Throat NO GROUP A STREP ISOLATED Group A Streptococcus Rapid Screen - Final NEGATIVE STREP A SCREEN 07/24/17 17:30 Influenza Type A Antigen Screen - Final Nasal, Unspecified NEGATIVE INFLUENZA A VIRUS AG Influenza Type B Antigen Screen - Final NEGATIVE INFLUENZA B VIRUS AG Med Orders - Current: Current Medications Acetaminophen (Tylenol) 650 mg PO Q4H PRN PRN Reason: Pain (Mild 1-3)/fever Last Admin: 07/24/17 20:36 Dose: 650 mg Albuterol/Ipratropium (Duoneb 3.0-0.5 Mg/3 Ml) 3 ml NEB Q4HRRT PRN PRN Reason: sob Amlodipine Besylate (Norvasc) 10 mg PO DAILY [facility] Last Admin: 07/25/17 09:04 Dose: 10 mg Atenolol (Tenormin) 50 mg PO DAILY [facility] Last Admin: 07/25/17 09:03 Dose: 50 mg Furosemide (Lasix) 20 mg PO DAILY [facility] Last Admin: 07/25/17 09:04 Dose: 20 mg Heparin Sodium (Porcine) (Heparin Sodium) 5,000 units SUBCUT Q8HR [facility] Last Admin: 07/25/17 05:53 Dose: 5,000 units Azithromycin 500 mg/ Sodium (Chloride) 250 mls @ 250 mls/hr IV Q24H [facility] Last Admin: 07/24/17 20:33 Dose: 250 mls/hr Ceftriaxone Sodium 1 gm/ (Sodium Chloride) 50 mls @ 100 mls/hr IV Q24H [facility] Last Admin: 07/24/17 21:44 Dose: 100 mls/hr Sodium Chloride (Normal Saline) 1,000 mls @ 75 mls/hr IV ASDIRECTED [facility] Last Admin: 07/25/17 01:38 Dose: 75 mls/hr Latanoprost (Xalatan 0.005% Ophth Soln) 0 ml EYEBOTH BID [facility] Last Admin: 07/25/17 09:09 Dose: 2 drop Methylprednisolone Sodium Succinate (Solu-Medrol) 40 mg IVPUSH Q8H [facility] Last Admin: 07/25/17 09:10 Dose: 40 mg Omeprazole (Omeprazole) 20 mg PO DAILY [facility] Last Admin: 07/25/17 09:03 Dose: 20 mg Sodium Chloride (Saline Flush) 10 ml FLUSH ASDIRECTED PRN PRN Reason: Keep Vein Open Last Admin: 07/25/17 01:34 Dose: 10 ml Zolpidem Tartrate (Ambien) 5 mg PO BEDTIME PRN PRN Reason: Sleep Discontinued Medications Albuterol/Ipratropium (Duoneb 3.0-0.5 Mg/3 Ml) 3 ml NEB ONETIME ONE Stop: 07/24/17 17:52 Last Admin: 07/24/17 18:30 Dose: 3 ml Sodium Chloride (Normal Saline) 1,000 mls @ 999 mls/hr IV .BOLUS ONE Stop: 07/24/17 19:00 Last Admin: 07/24/17 18:36 Dose: 999 mls/hr Levofloxacin/Dextrose 750 mg/ (Premix) 150 mls @ 100 mls/hr IV ONETIME ONE Stop: 07/24/17 20:22 Last Admin: 07/24/17 19:06 Dose: 100 mls/hr Methylprednisolone Sodium Succinate (Solu-Medrol) 125 mg IVPUSH ONETIME ONE Stop: 07/24/17 18:01 Last Admin: 07/24/17 18:36 Dose: 125 mg Ondansetron HCl (Zofran) 4 mg IV ONETIME ONE Stop: 07/24/17 18:01 Last Admin: 07/24/17 18:36 Dose: 4 mg - Exam General: Alert, Oriented Neck: Supple Lungs: Normal Respiratory Effort, Crackles (b/l) GI/Abdominal Exam: Normal Bowel Sounds, Soft, Non-Tender Extremities: No Pedal Edema Skin: Warm, Dry Neurological: No New Focal Deficit Psy/Mental Status: Alert, Normal Affect, Normal Mood - Problem List Review Problem List Initiated/Reviewed/Updated: Yes - My Orders Last 24 Hours: My Active Orders 07/24/17 20:00 CULTURE SPUTUM + SMEAR [RM] Routine Azithromycin [Zithromax] 500 mg Sodium Chloride 0.9% [Normal Saline] 250 ml IV Q24H cefTRIAXone [Rocephin] 1 gm Sodium Chloride 0.9% [Normal Saline] 50 ml IV Q24H 07/24/17 20:12 Patient Status [ADT] Routine Oxygen Therapy [RC] PRN Up With Assistance [RC] ASDIRECTED VTE/DVT Education [RC] .PRN Vital Signs [RC] Q4H Acetaminophen [Tylenol] 650 mg PO Q4H PRN Zolpidem [Ambien] 5 mg PO BEDTIME PRN Resuscitation Status Routine 07/24/17 20:13 Antiembolic Hose [OM.PC] Per Unit Routine 07/24/17 20:15 Sodium Chloride 0.9% [Normal Saline] 1,000 ml IV ASDIRECTED 07/24/17 20:29 Albuterol/Ipratropium [DuoNeb 3.0-0.5 MG/3 ML] 3 ml NEB Q4HRRT PRN 07/24/17 20:30 RT Aerosol Therapy [RC] ASDIRECTED 07/24/17 21:00 Latanoprost [Xalatan 0.005% Ophth Soln] 0 ml EYEBOTH BID 07/24/17 22:00 Heparin Sodium 5,000 units SUBCUT Q8HR 07/25/17 02:00 methylPREDNISolone Sod Succ [Solu-MEDROL] 40 mg IVPUSH Q8H 07/25/17 09:00 Atenolol [Tenormin] 50 mg PO DAILY Furosemide [Lasix] 20 mg PO DAILY Omeprazole 20 mg PO DAILY amLODIPine [Norvasc] 10 mg PO DAILY - Plan Plan:: 76-year-old lady with a history of secondhand smoke exposure. History of hypertension. Recently noted hyponatremia. Presented with cough, subjective fever, leukocytosis. #1 acute community-acquired pneumonia Chest x-ray showed right-sided infiltrate pending sputum culture, blood culture Treat empirically with azithromycin and Rocephin In the ER there was concern for wheezing as well. Started IV steroids. Will use DuoNeb as needed for shortness of breath #2 hyponatremia Likely acute on chronic Improved, will stop IV hydration Monitor electrolytes #3 hypertension Treat with Norvasc #4 levofloxacin allergy Had a localized rash developing at the site of administration of levofloxacin, that was discontinued, rash did not spread. #5 DVT prophylaxis will be with subcutaneous heparin
[2017-07-25] MEDS: cefTRIAXone 1 GM Vial IVPUSH SCH (20:21)
[2017-07-25] MEDS: Azithromycin 500 MG in Sodium Chloride 0.9% 250 ML IV SCH (20:21)
[2017-07-26] MEDS: methylPREDNISolone Sodium Succinate 40 MG/1 ML SDV IVPUSH SCH ×3 (02:05→17:47)
[2017-07-26] MEDS: Heparin Sodium 5,000 Units/ML Vial SUBCUT SCH ×3 (05:56→21:22)
[2017-07-26 06:57] LABS: CHLORIDE,CL 95 mmol/L (101-111); SODIUM,NA 132 mmol/L (135-145)
[2017-07-26] MEDS: Furosemide 20 MG Tab PO SCH (09:39)
[2017-07-26] MEDS: Omeprazole 20 MG Cap.CR PO SCH (09:39)
[2017-07-26] MEDS: amLODIPine 5 MG Tab PO SCH (09:41)
[2017-07-26] MEDS: Atenolol 50 MG Tab PO SCH (09:42)
[2017-07-26] MEDS: Latanoprost 0.005% Ophth Soln 2.5 ML Bottle EYEBOTH SCH ×2 (09:42→21:19)
[2017-07-26] MEDS: Albuterol/Ipratropium 3.0-0.5 MG/3 ML Neb Soln NEB PRN ×2 (13:19→17:47)
[2017-07-26] MEDS: Sodium Chloride 0.9% 10 ML Syringe FLUSH PRN ×4 (17:47→21:12)
[2017-07-26] MEDS: Acetaminophen 325 MG Tab PO PRN (19:05)
[2017-07-26] MEDS: Azithromycin 500 MG in Sodium Chloride 0.9% 250 ML IV SCH (20:12)
[2017-07-26] MEDS: cefTRIAXone 1 GM Vial IVPUSH SCH (21:05)
[2017-07-27] MEDS: Sodium Chloride 0.9% 10 ML Syringe FLUSH PRN ×3 (02:27→10:51)
[2017-07-27] MEDS: methylPREDNISolone Sodium Succinate 40 MG/1 ML SDV IVPUSH SCH ×2 (02:27→10:50)
[2017-07-27] MEDS: Heparin Sodium 5,000 Units/ML Vial SUBCUT SCH ×2 (05:29→16:11)
[2017-07-27] MEDS: Omeprazole 20 MG Cap.CR PO SCH (09:49)
[2017-07-27] MEDS: Furosemide 20 MG Tab PO SCH (09:49)
[2017-07-27] MEDS: Atenolol 50 MG Tab PO SCH (09:50)
[2017-07-27] MEDS: amLODIPine 5 MG Tab PO SCH (09:50)
[2017-07-27] MEDS: Latanoprost 0.005% Ophth Soln 2.5 ML Bottle EYEBOTH SCH (09:51)
--- NOTE | 2017-07-27 13:40 | PCM.PN ---
- General Info Date of Service: 07/26/17 Admission Dx/Problem (Free Text): Admission Diagnosis/Problem Admission Diagnosis/Problem Pneumonia Functional Status: Reports: Pain Controlled - Review of Systems General: Reports: No Symptoms HEENT: Reports: No Symptoms Pulmonary: Reports: No Symptoms Cardiovascular: Reports: No Symptoms Gastrointestinal: Reports: No Symptoms Genitourinary: Reports: No Symptoms Musculoskeletal: Reports: No Symptoms Skin: Reports: No Symptoms Neurological: Reports: No Symptoms Psychiatric: Reports: No Symptoms - Patient Data Vitals - Most Recent: Last Vital Signs Temp 98 F 07/27/17 11:00 Pulse 76 07/27/17 11:00 Resp 20 07/27/17 11:00 BP 139/77 07/27/17 11:00 Pulse Ox 95 07/27/17 11:00 Weight - Most Recent: 203 lb 4 oz I&O - Last 24 Hours: Intake & Output 07/26/17 07/27/17 07/27/17 22:59 06:59 14:59 Intake Total 1200 180 300 Output Total 200 400 Balance 1000 -220 300 Thaddeus Results Last 24 Hours: Microbiology 07/24/17 18:28 Aerobic Blood Culture - Preliminary Blood - Venous - Lab Draw NO GROWTH AFTER 2 DAYS Anaerobic Blood Culture - Preliminary NO GROWTH AFTER 2 DAYS 07/24/17 18:20 Aerobic Blood Culture - Preliminary Blood - Venous NO GROWTH AFTER 2 DAYS Anaerobic Blood Culture - Preliminary NO GROWTH AFTER 2 DAYS Med Orders - Current: Current Medications Acetaminophen (Tylenol) 650 mg PO Q4H PRN PRN Reason: Pain (Mild 1-3)/fever Last Admin: 07/26/17 19:05 Dose: 650 mg Albuterol/Ipratropium (Duoneb 3.0-0.5 Mg/3 Ml) 3 ml NEB Q4HRRT PRN PRN Reason: sob Last Admin: 07/26/17 17:47 Dose: 3 ml Amlodipine Besylate (Norvasc) 10 mg PO DAILY [facility] Last Admin: 07/27/17 09:50 Dose: 10 mg Atenolol (Tenormin) 50 mg PO DAILY [facility] Last Admin: 07/27/17 09:50 Dose: 50 mg Ceftriaxone Sodium (Rocephin) 1 gm IVPUSH Q24H YUE Last Admin: 07/26/17 21:05 Dose: 1 gm Furosemide (Lasix) 20 mg PO DAILY [facility] Last Admin: 07/27/17 09:49 Dose: 20 mg Heparin Sodium (Porcine) (Heparin Sodium) 5,000 units SUBCUT Q8HR [facility] Last Admin: 07/27/17 05:29 Dose: 5,000 units Azithromycin 500 mg/ Sodium (Chloride) 250 mls @ 250 mls/hr IV Q24H [facility] Last Infusion: 07/26/17 22:22 Dose: Infused Latanoprost (Xalatan 0.005% Ophth Soln) 0 ml EYEBOTH BID [facility] Last Admin: 07/27/17 09:51 Dose: Not Given Methylprednisolone Sodium Succinate (Solu-Medrol) 40 mg IVPUSH Q8H [facility] Last Admin: 07/27/17 10:50 Dose: 40 mg Omeprazole (Omeprazole) 20 mg PO DAILY [facility] Last Admin: 07/27/17 09:49 Dose: 20 mg Sodium Chloride (Saline Flush) 10 ml FLUSH ASDIRECTED PRN PRN Reason: Keep Vein Open Last Admin: 07/27/17 10:51 Dose: 10 ml Zolpidem Tartrate (Ambien) 5 mg PO BEDTIME PRN PRN Reason: Sleep Discontinued Medications Albuterol/Ipratropium (Duoneb 3.0-0.5 Mg/3 Ml) 3 ml NEB ONETIME ONE Stop: 07/24/17 17:52 Last Admin: 07/24/17 18:30 Dose: 3 ml Sodium Chloride (Normal Saline) 1,000 mls @ 999 mls/hr IV .BOLUS ONE Stop: 07/24/17 19:00 Last Admin: 07/24/17 18:36 Dose: 999 mls/hr Levofloxacin/Dextrose 750 mg/ (Premix) 150 mls @ 100 mls/hr IV ONETIME ONE Stop: 07/24/17 20:22 Last Admin: 07/24/17 19:06 Dose: 100 mls/hr Ceftriaxone Sodium 1 gm/ (Sodium Chloride) 50 mls @ 100 mls/hr IV Q24H [facility] Last Admin: 07/24/17 21:44 Dose: 100 mls/hr Sodium Chloride (Normal Saline) 1,000 mls @ 75 mls/hr IV ASDIRECTED [facility] Last Admin: 07/25/17 01:38 Dose: 75 mls/hr Methylprednisolone Sodium Succinate (Solu-Medrol) 125 mg IVPUSH ONETIME ONE Stop: 07/24/17 18:01 Last Admin: 07/24/17 18:36 Dose: 125 mg Ondansetron HCl (Zofran) 4 mg IV ONETIME ONE Stop: 07/24/17 18:01 Last Admin: 07/24/17 18:36 Dose: 4 mg - Exam Quality Assessment: Supplemental Oxygen General: Alert, Oriented HEENT: Pupils Equal, Pupils Reactive, EOMI, Mucous Membr. Moist/Industry Neck: Supple Lungs: Clear to Auscultation, Normal Respiratory Effort Cardiovascular: Regular Rate, Regular Rhythm GI/Abdominal Exam: Normal Bowel Sounds, Soft, Non-Tender, No Organomegaly, No Distention, No Abnormal Bruit, No Mass, Pelvis Stable (Female) Exam: Normal External Exam, Normal Speculum Exam, Normal Bimanual Exam Back Exam: Normal Inspection, Full Range of Motion Extremities: Normal Inspection, Normal Range of Motion, Non-Tender, No Pedal Edema, Normal Capillary Refill Skin: Warm, Dry, Intact Wound/Incisions: Healing Well Neurological: No New Focal Deficit Psy/Mental Status: Alert, Normal Affect, Normal Mood - Problem List Review Problem List Initiated/Reviewed/Updated: Yes - My Orders Last 24 Hours: My Active Orders 07/26/17 18:01 Flutter Valve Therapy [RT Chest Physiotherapy] [RC] ASDIRECTED - Plan Plan:: 76-year-old lady with a history of secondhand smoke exposure. History of hypertension. Recently noted hyponatremia. Presented with cough, subjective fever, leukocytosis. #1 acute community-acquired pneumonia Chest x-ray showed right-sided infiltrate Cultures negative so far Continue azithromycin and Rocephin In the ER there was concern for wheezing as well. Started IV steroids. Will use DuoNeb as needed for shortness of breath #2 hyponatremia Likely acute on chronic Improved Monitor electrolytes #3 hypertension Continue Norvasc #4 levofloxacin allergy Had a localized rash developing at the site of administration of levofloxacin, that was discontinued, rash did not spread. #5 DVT prophylaxis will be with subcutaneous heparin
--- NOTE | 2017-07-27 13:49 | PCM.DCSUM1 ---
Discharge Summary - Hospital Course Free Text/Narrative:: The patient is a 76-year-old lady with a history of secondhand smoking exposure , hypertension, overactive bladder. In the past few days the patient has been experiencing subjective the chills, temperature up to 100, increasing shortness of breath. She has a cough which is mostly nonproductive. She was admitted for acute hypoxia with respiratory failure due to pneumonia and hyponatremia. She was management with IV antibiotics with significant inprovement. Her oxygen requirement has decreased. She had a walking desat test done. She will require 2 L at rest and 4L with exercise. Patient is stable for discharge and will follow with her PCP. She was prescribed home oxygen. - Discharge Data Discharge Date: 07/27/17 Discharge Disposition: Home, Self-Care 01 Condition: Good - Discharge Diagnosis/Problem(s) (1) Acute bronchitis SNOMED Code(s): 87122733 ICD Code: J20.9 - ACUTE BRONCHITIS, UNSPECIFIED Status: Acute Current Visit: No (2) Chronic obstructive pulmonary disease with acute exacerbation SNOMED Code(s): 745430906 ICD Code: J44.1 - CHRONIC OBSTRUCTIVE PULMONARY DISEASE W (ACUTE) EXACERBATION Status: Acute Current Visit: No (3) Hyponatremia SNOMED Code(s): 63909989 ICD Code: E87.1 - HYPO-OSMOLALITY AND HYPONATREMIA Status: Acute Current Visit: Yes (4) Hyponatremia SNOMED Code(s): 06106534 ICD Code: E87.1 - HYPO-OSMOLALITY AND HYPONATREMIA Status: Acute Current Visit: No (5) Hyponatremia syndrome SNOMED Code(s): 2001139 ICD Code: E87.1 - HYPO-OSMOLALITY AND HYPONATREMIA Status: Acute Current Visit: No (6) Hypoxia SNOMED Code(s): 421867043 ICD Code: R09.02 - HYPOXEMIA Status: Acute Current Visit: No (7) Pneumonia SNOMED Code(s): 088090807 ICD Code: J18.9 - PNEUMONIA, UNSPECIFIED ORGANISM Status: Acute Current Visit: No Qualifiers: Pneumonia type: due to unspecified organism Laterality: right Lung location: lower lobe of lung Qualified Code(s): J18.1 - Lobar pneumonia, unspecified organism (8) Syncope SNOMED Code(s): 280766118 ICD Code: R55 - SYNCOPE AND COLLAPSE Status: Acute Current Visit: Yes Qualifiers: Syncope type: unspecified Qualified Code(s): R55 - Syncope and collapse - Patient Instructions Diet: Heart Healthy Diet Fluid Restriction: 1500 mL Activity: As Tolerated Showering/Bathing: May Shower Notify Provider of: Fever, Increased Pain, Swelling and Redness, Drainage, Nausea and/or Vomiting - Discharge Plan Prescriptions/Med Rec: Acetaminophen [Tylenol] 650 mg PO Q6H PRN 5 Days #20 tablet PRN Reason: Pain (Mild 1-3)/fever Home Medications: Home Meds Amlodipine 10 mg PO DAILY 06/27/13 [History] Atenolol 50 mg PO DAILY 06/27/13 [History] Furosemide 20 mg PO DAILY 06/27/13 [History] Gabapentin 600 mg PO TID 06/27/13 [History] Latanoprost 1 drp EYEBOTH ASDIRECTED 06/27/13 [History] Naproxen [Naprosyn] 500 mg PO BID 06/27/13 [History] Omeprazole 20 mg PO DAILY 12/28/13 [History] Trospium Chloride 20 mg PO BID 07/21/17 [History] Ascorbic Acid [Vitamin C] 1 tab PO BIDMEALS 07/26/17 [History] Calcium Citrate/Vitamin D3 [Calcium Citrate with D Tablet] 1 tab PO ASDIRECTED 07/26/17 [History] Ferrous Gluconate 324 mg PO ASDIRECTED 07/26/17 [History] carBAMazepine [Carbamazepine] 200 mg PO TID 07/26/17 [History] Acetaminophen [Tylenol] 650 mg PO Q6H PRN 5 Days #20 tablet 07/27/17 [Rx] Forms: ED Department Discharge Referrals: Allie Love PROMOTIONAL REPRESENTATIVE [Primary Care Provider] - - Discharge Summary/Plan Comment DC Time >30 min.: Yes Discharge Summary/Plan Comment: Follow up with PCP - Patient Data Vitals - Most Recent: Last Vital Signs Temp 98 F 07/27/17 11:00 Pulse 76 07/27/17 11:00 Resp 20 07/27/17 11:00 BP 139/77 07/27/17 11:00 Pulse Ox 95 07/27/17 11:00 Weight - Most Recent: 203 lb 4 oz I&O - Last 24 hours: Intake & Output 07/26/17 07/27/17 07/27/17 22:59 06:59 14:59 Intake Total 1200 180 300 Output Total 200 400 Balance 1000 -220 300 DESHAUN Results - Last 24 hrs: Microbiology 07/24/17 18:28 Aerobic Blood Culture - Preliminary Blood - Venous - Lab Draw NO GROWTH AFTER 2 DAYS Anaerobic Blood Culture - Preliminary NO GROWTH AFTER 2 DAYS 07/24/17 18:20 Aerobic Blood Culture - Preliminary Blood - Venous NO GROWTH AFTER 2 DAYS Anaerobic Blood Culture - Preliminary NO GROWTH AFTER 2 DAYS Med Orders - Current: Current Medications Acetaminophen (Tylenol) 650 mg PO Q4H PRN PRN Reason: Pain (Mild 1-3)/fever Last Admin: 07/26/17 19:05 Dose: 650 mg Albuterol/Ipratropium (Duoneb 3.0-0.5 Mg/3 Ml) 3 ml NEB Q4HRRT PRN PRN Reason: sob Last Admin: 07/26/17 17:47 Dose: 3 ml Amlodipine Besylate (Norvasc) 10 mg PO DAILY [facility] Last Admin: 07/27/17 09:50 Dose: 10 mg Atenolol (Tenormin) 50 mg PO DAILY [facility] Last Admin: 07/27/17 09:50 Dose: 50 mg Ceftriaxone Sodium (Rocephin) 1 gm IVPUSH Q24H [facility] Last Admin: 07/26/17 21:05 Dose: 1 gm Furosemide (Lasix) 20 mg PO DAILY [facility] Last Admin: 07/27/17 09:49 Dose: 20 mg Heparin Sodium (Porcine) (Heparin Sodium) 5,000 units SUBCUT Q8HR [facility] Last Admin: 07/27/17 05:29 Dose: 5,000 units Azithromycin 500 mg/ Sodium (Chloride) 250 mls @ 250 mls/hr IV Q24H [facility] Last Infusion: 07/26/17 22:22 Dose: Infused Latanoprost (Xalatan 0.005% Ophth Soln) 0 ml EYEBOTH BID [facility] Last Admin: 07/27/17 09:51 Dose: Not Given Methylprednisolone Sodium Succinate (Solu-Medrol) 40 mg IVPUSH Q8H [facility] Last Admin: 07/27/17 10:50 Dose: 40 mg Omeprazole (Omeprazole) 20 mg PO DAILY [facility] Last Admin: 07/27/17 09:49 Dose: 20 mg Sodium Chloride (Saline Flush) 10 ml FLUSH ASDIRECTED PRN PRN Reason: Keep Vein Open Last Admin: 07/27/17 10:51 Dose: 10 ml Zolpidem Tartrate (Ambien) 5 mg PO BEDTIME PRN PRN Reason: Sleep Discontinued Medications Albuterol/Ipratropium (Duoneb 3.0-0.5 Mg/3 Ml) 3 ml NEB ONETIME ONE Stop: 07/24/17 17:52 Last Admin: 07/24/17 18:30 Dose: 3 ml Sodium Chloride (Normal Saline) 1,000 mls @ 999 mls/hr IV .BOLUS ONE Stop: 07/24/17 19:00 Last Admin: 07/24/17 18:36 Dose: 999 mls/hr Levofloxacin/Dextrose 750 mg/ (Premix) 150 mls @ 100 mls/hr IV ONETIME ONE Stop: 07/24/17 20:22 Last Admin: 07/24/17 19:06 Dose: 100 mls/hr Ceftriaxone Sodium 1 gm/ (Sodium Chloride) 50 mls @ 100 mls/hr IV Q24H [facility] Last Admin: 07/24/17 21:44 Dose: 100 mls/hr Sodium Chloride (Normal Saline) 1,000 mls @ 75 mls/hr IV ASDIRECTED [facility] Last Admin: 07/25/17 01:38 Dose: 75 mls/hr Methylprednisolone Sodium Succinate (Solu-Medrol) 125 mg IVPUSH ONETIME ONE Stop: 07/24/17 18:01 Last Admin: 07/24/17 18:36 Dose: 125 mg Ondansetron HCl (Zofran) 4 mg IV ONETIME ONE Stop: 07/24/17 18:01 Last Admin: 07/24/17 18:36 Dose: 4 mg
== END 2017-07-27 15:10 | disposition home or self-care (01) | DRG 193 ==
LOC: DL.ED 17:29 → DL.MS 19:30 → UNDOADMIN 19:30 → DL.MS 20:12
PROVIDERS: ADMIT Internal Medicine; ATTEND Internal Medicine
DX: J18.9 Pneumonia, unspecified organism (principal); J96.01 Acute respiratory failure with hypoxia; E87.1 Hypo-osmolality and hyponatremia; J44.0 Chronic obstructive pulmonary disease with (acute) lower respiratory infection; J44.1 Chronic obstructive pulmonary disease with (acute) exacerbation; I10 Essential (primary) hypertension; N32.81 Overactive bladder; R55 Syncope and collapse; H54.7 Unspecified visual loss; K21.9 Gastro-esophageal reflux disease without esophagitis; G89.29 Other chronic pain; M54.9 Dorsalgia, unspecified; R53.81 Other malaise; R53.1 Weakness; L27.1 Localized skin eruption due to drugs and medicaments taken internally; T37.8X5A Adverse effect of other specified systemic anti-infectives and antiparasitics, initial encounter; Z79.899 Other long term (current) drug therapy; Z87.440 Personal history of urinary (tract) infections; Z77.22 Contact with and (suspected) exposure to environmental tobacco smoke (acute) (chronic)
CPT/HCPCS: 36415; 71046; 80048; 80053; 81001; 83605; 83880; 85025; 87040; 87070; 87081; 87205; 87430; 87804; 94060; 94640; 96365; 96375; 99285; A9270-GY; J0456; J0696; J1644; J1956; J2405; J2920; J2930; J7030; J7050

== ENCOUNTER 2017-09-09 16:15 | Emergency (ER) | payer OTHER ==
[2017-09-09] MEDS ORDERED: Ondansetron 4 MG/2 ML SDV IV ONE (16:46)
[2017-09-09] MEDS ORDERED: Sodium Chloride 0.9% 1,000 ML IV ONE (16:46)
[2017-09-09 17:35] LABS: CHLORIDE,CL 96 mmol/L (101-111); SODIUM,NA 130 mmol/L (135-145)
[2017-09-09] MEDS ORDERED: Iopamidol 612 MG/ML 100 ML Bottle IVPUSH ONE (17:48)
--- NOTE | 2017-09-09 18:49 | EDM.PDOC ---
Scribed by Sirena Gordon 09/09/17 1849 for Desmond Calderon PA <Desmond Calderon - Last Filed: 09/09/17 18:49> ED HPI GENERAL MEDICAL PROBLEM - General Chief Complaint: Abdominal Pain Stated Complaint: stomach pain [id number] Time Seen by Provider: 09/09/17 16:39 Source of Information: Reports: Patient, RN, RN Notes Reviewed History Limitations: Reports: No Limitations - History of Present Illness INITIAL COMMENTS - FREE TEXT/NARRATIVE: Patient presents to ER with stomach aches starting on . She vomited on . She has had dry heaves since then. She has been drinking water. She took Immodium and Pepto Bismol. Urination is normal. Onset: Gradual Duration: Getting Worse Location: Reports: Abdomen Quality: Reports: Ache Severity: Moderate Improves with: Reports: None Worsens with: Reports: None Associated Symptoms: Reports: No Other Symptoms - Related Data Allergies Allergy/AdvReac Type Severity Reaction Status Date / Time levofloxacin Allergy Itching Verified 07/25/17 07:50 Home Meds: Home Meds Amlodipine 10 mg PO DAILY 06/27/13 [History] Atenolol 50 mg PO DAILY 06/27/13 [History] Furosemide 20 mg PO DAILY 06/27/13 [History] Gabapentin 600 mg PO TID 06/27/13 [History] Latanoprost 1 drp EYEBOTH ASDIRECTED 06/27/13 [History] Naproxen [Naprosyn] 500 mg PO BID 06/27/13 [History] Omeprazole 20 mg PO DAILY 12/28/13 [History] Trospium Chloride 20 mg PO BID 07/21/17 [History] Ascorbic Acid [Vitamin C] 1 tab PO BIDMEALS 07/26/17 [History] Calcium Citrate/Vitamin D3 [Calcium Citrate with D Tablet] 1 tab PO ASDIRECTED 07/26/17 [History] Ferrous Gluconate 324 mg PO ASDIRECTED 07/26/17 [History] carBAMazepine [Carbamazepine] 200 mg PO TID 07/26/17 [History] Acetaminophen [Tylenol] 650 mg PO Q6H PRN 5 Days #20 tablet 07/27/17 [Rx] Past Medical History HEENT History: Reports: Impaired Vision Cardiovascular History: Reports: Hypertension Gastrointestinal History: Reports: GERD Genitourinary History: Reports: UTI, Recurrent [employer] History: Reports: Musculoskeletal History: Reports: Back Pain, Chronic - Infectious Disease History Infectious Disease History: Reports: Chicken Pox, Measles, Mumps - Past Surgical History HEENT Surgical History: Reports: Cataract Surgery, Tonsillectomy Female Surgical History: Reports: Ureteral Stent Other Female Surgeries/Procedures: hysterectomy Musculoskeletal Surgical History: Reports: Other (See Below) (right hip surgery) Social & Family History - Family History Family Medical History: Noncontributory - Caffeine Use Caffeine Use: Reports: None - Living Situation & Occupation Living situation: Reports: with Family Occupation: Retired ED ROS GENERAL - Review of Systems Review Of Systems: ROS reveals no pertinent complaints other than HPI. ED EXAM, GI/ABD - Physical Exam Exam: See Below Exam Limited By: No Limitations General Appearance: Alert, WD/WN, No Apparent Distress Eyes: Bilateral: Normal Appearance Ears: Normal External Exam, Normal Canal, Hearing Grossly Normal, Normal TMs Nose: Normal Inspection, Normal Mucosa, No Blood Throat/Mouth: Normal Inspection, Normal Lips, Normal Teeth, Normal Gums, Normal Oropharynx, Normal Voice, No Airway Compromise Head: Atraumatic, Normocephalic Neck: Normal Inspection, Supple, Non-Tender, Full Range of Motion Respiratory/Chest: No Respiratory Distress, Lungs Clear, Normal Breath Sounds, No Accessory Muscle Use, Chest Non-Tender Cardiovascular: Normal Peripheral Pulses, Regular Rate, Rhythm, No Edema, No Gallop, No JVD, No Murmur, No Rub GI/Abdominal Exam: Other (diffuse tenderness) (Female) Exam: Deferred Rectal (Female) Exam: Deferred Back Exam: Normal Inspection, Full Range of Motion, NT Extremities: Normal Inspection, Normal Range of Motion, Non-Tender, Normal Capillary Refill, No Pedal Edema Neurological: Alert, Oriented, CN II-XII Intact, Normal Cognition, Normal Gait, Normal Reflexes, No Motor/Sensory Deficits Psychiatric: Normal Affect, Normal Mood Skin Exam: Dry Lymphatic: No Adenopathy Course - Vital Signs Last Recorded V/S: Last Vital Signs Temp 36.2 C 09/09/17 16:40 Pulse 114 H 09/09/17 16:40 Resp 20 09/09/17 16:40 BP 132/83 09/09/17 16:40 Pulse Ox 96 09/09/17 16:40 - Orders/Labs/Meds Orders: Active Orders 24 hr Category Date Time Status UA W/MICROSCOPIC [URIN] Stat Lab 09/09/17 18:24 Ordered Labs: Laboratory Tests 09/09/17 09/09/17 09/09/17 Range/Units 17:00 17:00 18:24 WBC 12.9 H (5.0-10.0) 10^3/uL RBC 4.60 (4.2-5.4) 10^6/uL Hgb 13.6 (12.0-16.0) g/dL Hct 41.5 (37.0-47.0) % MCV 90.2 (80-100) fL MCH 29.6 (27.0-34.0) pg MCHC 32.8 L (33.0-35.0) g/dL Plt Count 291 D (150-450) 10^3/uL Neut % (Auto) 85.6 H (42.2-75.2) % Lymph % (Auto) 7.4 L (20.5-50.1) % Gregory % (Auto) 6.7 (2-8) % Eos % (Auto) 0.2 L (1.0-3.0) % Baso % (Auto) 0.1 (0.0-1.0) % Sodium 130 L (135-145) mmol/L Potassium 3.7 (3.6-5.0) mmol/L Chloride 96 L (101-111) mmol/L Carbon Dioxide 22.0 (21.0-31.0) mmol/L Anion Gap 15.7 BUN 7 (7-18) mg/dL Creatinine 0.7 (0.6-1.3) mg/dL Est Cr Clr Drug Dosing 64.01 mL/min Estimated GFR (MDRD) > 60 BUN/Creatinine Ratio 10.00 Glucose 117 H (74-105) mg/dL Calcium 9.2 (8.4-10.2) mg/dl Total Bilirubin 0.9 (0.2-1.0) mg/dL AST 33 (10-42) IU/L ALT 16 (10-60) IU/L Alkaline Phosphatase 121 (42-121) IU/L Total Protein 7.7 (6.7-8.2) g/dl Albumin 3.5 (3.2-5.5) g/dl Globulin 4.2 Albumin/Globulin Ratio 0.83 Urine Color Yellow (YELLOW) Urine Appearance Cloudy (CLEAR) Urine pH 6.0 (5.0-9.0) Ur Specific Bim 1.010 (1.005-1.030) Urine Protein 100 H (NEGATIVE) Urine Glucose (UA) Negative (NEGATIVE) Urine Ketones 80 H (NEGATIVE) Urine Occult Blood Large H (NEGATIVE) Urine Nitrite Negative (NEGATIVE) Urine Bilirubin Negative (NEGATIVE) Urine Urobilinogen 0.2 (0.2-1.0) mg/dL Ur Leukocyte Esterase Small H (NEGATIVE) Urine RBC 5-10 H /HPF Urine WBC Semi-packed H (0-5/HPF) /HPF Ur Epithelial Cells Moderate H /HPF Urine Bacteria Many H (0-FEW/HPF) /HPF Meds: Medications Discontinued Medications Generic Name Dose Route Start Last Admin Trade Name Freq PRN Reason Stop Dose Admin Sodium Chloride 1,000 mls @ 999 mls/hr 09/09/17 16:46 09/09/17 17:11 Normal Saline IV 09/09/17 17:46 999 mls/hr .BOLUS ONE Administration Iopamidol 100 ml 09/09/17 17:48 09/09/17 18:24 Isovue-300 (61%) IVPUSH 09/09/17 17:49 100 ml ONETIME ONE Administration Ondansetron HCl 4 mg 09/09/17 16:46 09/09/17 17:08 Zofran IV 09/09/17 16:47 4 mg ONETIME ONE Administration Departure - Departure Disposition: DC/Tfer to [facility] Clinical Impression: Small bowel obstruction - Discharge Information Forms: Interfacility Transfer [employer] <Sonu Morgan - Last Filed: 09/09/17 19:33> Course - Re-Assessments/Exams Free Text/Narrative Re-Assessment/Exam: 09/09/17 19:[address] Bajwa @ who kindly accepted pt. Departure - Departure Time of Disposition: 19:31 Condition: Fair I have read and agree with the documentation that has been completed regarding this visit. By signing this record, I attest that the documentation was completed in my physical presence and is an accurate record of the encounter.
== END 2017-09-09 20:15 ==
LOC: DL.ED 16:15
DX: K56.609 Unspecified intestinal obstruction, unspecified as to partial versus complete obstruction (principal); I10 Essential (primary) hypertension; K21.9 Gastro-esophageal reflux disease without esophagitis; Z88.1 Allergy status to other antibiotic agents; Z79.899 Other long term (current) drug therapy
CPT/HCPCS: 36415; 74177; 80053; 81001; 85025; 96361; 96374; 99285; J2405; J7030; Q9967

== ENCOUNTER 2019-01-03 10:41 | Inpatient (IN) | payer BC, OTHER ==
[2019-01-03] MEDS ORDERED: Albuterol 0.083% 2.5 MG/3 ML Neb Soln NEB PRN (11:33)
[2019-01-03] MEDS ORDERED: cefTRIAXone 1 GM in Sodium Chloride 0.9% 50 ML IV SCH (11:45)
[2019-01-03 12:55] LABS: CHLORIDE,CL 91 mmol/L (101-111); SODIUM,NA 132 mmol/L (135-145)
[2019-01-03] MEDS ORDERED: guaiFENesin/Dextromethorphan 100-10 MG/5 ML Soln 5 ML Cup PO PRN (13:04)
--- NOTE | 2019-01-03 13:11 | PCM.HP ---
H&P History of Present Illness - General Date of Service: 01/03/19 Admit Problem/Dx: Admission Diagnosis/Problem Admission Diagnosis/Problem Pneumonia Source of Information: Patient History Limitations: Reports: No Limitations - History of Present Illness Initial Comments - Free Text/Narative: 78 yo F with PMH of restrictive lung disease on home oxygen (2L at rest, 3L with activity), hypertension, GERD, who presents with cough and low grade fever. Patient reports that symptoms have been ongoing for a week Cough is productive of sputum, however patient swallows sputum Also reports low grade fever. In clinic today was 100.1F No chest pain, no SOB, no nausea, no vomiting, no abdominal pain Was seen at PCP clinic today were labs showed leucocytosis, and CXR showed RML pneumonia. Admission requested by PCP Onset of Symptoms: Reports: Gradual Associated Symptoms: Reports: Cough, Fever/Chills - Related Data Allergies/Adverse Reactions: Allergies Allergy/AdvReac Type Severity Reaction Status Date / Time levofloxacin Allergy Itching Verified 01/03/19 11:40 Home Medications: Home Meds Furosemide 20 mg PO DAILY 06/27/13 [History] Latanoprost 1 drop EYEBOTH BEDTIME 06/27/13 [History] Naproxen [Naprosyn] 500 mg PO BIDMEALS 06/27/13 [History] Omeprazole 40 mg PO DAILY 12/28/13 [History] Trospium Chloride 20 mg PO BIDMEALS 07/21/17 [History] Ascorbic Acid [Vitamin C] 250 mg PO BIDMEALS 07/26/17 [History] carBAMazepine [Carbamazepine] 200 mg PO TID 07/26/17 [History] Acetaminophen [Tylenol] 650 mg PO Q6H PRN 5 Days #20 tablet 07/27/17 [Rx] Atenolol 50 mg PO DAILY 01/03/19 [History] Cholecalciferol (Vitamin D3) [Vitamin D3] 1,000 unit PO DAILY 01/03/19 [History] Gabapentin [Neurontin] 600 mg PO TID 01/03/19 [History] amLODIPine Besylate [Amlodipine Besylate] 10 mg PO DAILY 01/03/19 [History] guaiFENesin/Dextromethorphan [Guaifenesin Dm Syrup] 100 mg PO QID PRN 01/03/19 [ History] Past Medical History HEENT History: Reports: Cataract, Hard of Hearing, Impaired Vision Cardiovascular History: Reports: Hypertension Respiratory History: Reports: Sleep Apnea, Other (See Below) Other Respiratory History: O2 at 2-3L per nasal cannula at home Gastrointestinal History: Reports: GERD Genitourinary History: Reports: UTI, Recurrent, Other (See Below) Other Genitourinary History: occasional stress incontinence [employer] ENG[employer] History: Reports: Musculoskeletal History: Reports: Arthritis, Back Pain, Chronic Oncologic (Cancer) History: Reports: Uterine - Infectious Disease History Infectious Disease History: Reports: Chicken Pox, Measles, Mumps - Past Surgical History HEENT Surgical History: Reports: Cataract Surgery, Tonsillectomy Respiratory Surgical History: Reports: None Female Surgical History: Reports: Hysterectomy, Salpingo-Oophorectomy, Ureteral Stent Neurological Surgical History: Reports: None Musculoskeletal Surgical History: Reports: Hip Replacement Oncologic Surgical History: Reports: Other (See Below) Other Oncologic Surgeries/Procedures: Hysterectomy Social & Family History - Family History Family Medical History: Noncontributory - Tobacco Use Smoking Status *Q: Never Smoker Second Hand Smoke Exposure: No - Caffeine Use Caffeine Use: Reports: Coffee, Soda - Recreational Drug Use Recreational Drug Use: No - Living Situation & Occupation Living situation: Reports: with Family Occupation: Retired H&P Review of Systems - Review of Systems: Review Of Systems: ROS reveals no pertinent complaints other than HPI. General: Reports: Fever HEENT: Reports: No Symptoms Pulmonary: Reports: Shortness of Breath, Cough Cardiovascular: Reports: No Symptoms. Denies: Chest Pain Gastrointestinal: Reports: No Symptoms. Denies: Abdominal Pain Genitourinary: Reports: No Symptoms Musculoskeletal: Reports: No Symptoms Skin: Reports: No Symptoms Neurological: Reports: No Symptoms Exam - Exam Exam: See Below - Vital Signs Vital Signs: Last Vital Signs Temp 37.2 C 01/03/19 11:31 Pulse 122 H 01/03/19 11:31 Resp 24 H 01/03/19 11:31 BP 149/77 H 01/03/19 11:31 Pulse Ox 96 01/03/19 11:31 Weight: 93.803 kg - Exam General: Alert, Oriented HEENT: Conjunctiva Clear Neck: Supple, Trachea Midline Lungs: Crackles (right lower lobe) Cardiovascular: Regular Rate, Regular Rhythm GI/Abdominal Exam: Normal Bowel Sounds, Soft, Non-Tender, No Organomegaly Extremities: Normal Inspection, Normal Range of Motion, Non-Tender, No Pedal Edema - Patient Data Lab Results Last 24 hrs: Laboratory Results - last 24 hr 01/03/19 01/03/19 Range/Units 12:12 12:12 WBC 14.2 H (5.0-10.0) 10^3/uL RBC 4.45 (4.2-5.4) 10^6/uL Hgb 12.9 (12.0-16.0) g/dL Hct 40.0 (37.0-47.0) % MCV 89.9 (80-100) fL MCH 29.0 (27.0-34.0) pg MCHC 32.3 L (33.0-35.0) g/dL Plt Count 269 (150-450) 10^3/uL Sodium 132 L (135-145) mmol/L Potassium 4.0 (3.6-5.0) mmol/L Chloride 91 L (101-111) mmol/L Carbon Dioxide 28.0 (21.0-31.0) mmol/L Anion Gap 17.0 BUN 14 (7-18) mg/dL Creatinine 0.7 (0.6-1.3) mg/dL Est Cr Clr Drug Dosing 62.01 mL/min Estimated GFR (MDRD) > 60 Glucose 153 H (74-105) mg/dL Calcium 9.3 (8.4-10.2) mg/dl Result Diagrams: 01/03/19 12:12 01/03/19 12:12 Problem List Initiated/Reviewed/Updated: Yes Orders Last 24hrs: Active Orders 24 hr Category Date Time Status Patient Status [ADT] Routine ADT 01/03/19 11:31 Active Ambulate [RC] ASDIRECTED Care 01/03/19 11:31 Active Height and Weight [RC] 06 Care 01/03/19 11:31 Active Oxygen Therapy [RC] .PRN Care 01/03/19 11:31 Active RT Chest Physiotherapy [RC] ASDIRECTED Care 01/03/19 11:33 Active RT Incentive Spirometry [RC] ASDIRECTED Care 01/03/19 11:33 Active Up With Assistance [RC] ASDIRECTED Care 01/03/19 11:31 Active VTE/DVT Education [RC] PER UNIT ROUTINE Care 01/03/19 11:31 Active Vital Signs [RC] 00,04,08,12,16,20 Care 01/03/19 11:31 Active OT Evaluation and Treatment [CONS] Routine Cons 01/03/19 11:31 Active PT Evaluation and Treatment [CONS] Routine Cons 01/03/19 11:31 Active Regular Diet [DIET] Diet 01/03/19 Breakfast Active Chest 2V [CR] Routine Exams 01/03/19 11:33 Ordered BASIC METABOLIC PANEL,BMP [CHEM] AM Lab 01/04/19 05:11 Ordered BASIC METABOLIC PANEL,BMP [CHEM] AM Lab 01/05/19 05:11 Ordered BASIC METABOLIC PANEL,BMP [CHEM] AM Lab 01/06/19 05:11 Ordered CBC W/O DIFF,HEMOGRAM [HEME] AM Lab 01/04/19 05:11 Ordered CBC W/O DIFF,HEMOGRAM [HEME] AM Lab 01/05/19 05:11 Ordered CBC W/O DIFF,HEMOGRAM [HEME] AM Lab 01/06/19 05:11 Ordered CULTURE BLOOD [BC] Stat Lab 01/03/19 13:04 Ordered CULTURE BLOOD [BC] Stat Lab 01/03/19 13:04 Ordered CULTURE SPUTUM + SMEAR [RM] Routine Lab 01/03/19 13:03 Ordered Acetaminophen [Tylenol] Med 01/03/19 13:04 Ordered 650 mg PO Q6H PRN Albuterol [Proventil Neb Soln] Med 01/03/19 11:33 Active 2.5 mg NEB Q6HRRT PRN Albuterol/Ipratropium [DuoNeb 3.0-0.5 MG/3 ML] Med 01/03/19 13:00 Active 3 ml NEB Q6HRRT Ascorbic Acid [Vitamin C] Med 01/03/19 18:00 Ordered 250 mg PO BIDMEALS Atenolol [Tenormin] Med 01/04/19 09:00 Ordered 50 mg PO DAILY Azithromycin [Zithromax] Med 01/03/19 12:00 Active 500 mg PO DAILY Cholecalciferol (Vitamin D3) [Vitamin D3] Med 01/04/19 09:00 Ordered 1,000 unit PO DAILY Dextromethorphan/guaiFENesin [Robitussin DM] Med 01/03/19 13:04 Ordered DOSE ml PO QID PRN Furosemide [Lasix] Med 01/04/19 09:00 Ordered 20 mg PO DAILY Gabapentin Med 01/03/19 14:00 Ordered 600 mg PO TID Latanoprost [Xalatan 0.005% Ophth Soln] Med 01/03/19 21:00 Ordered DOSE ml EYEBOTH BEDTIME Mometasone/Formoterol [Dulera 200-5 MCG] Med 01/03/19 18:00 Active 2 puff IH BIDRT Omeprazole Med 01/04/19 09:00 Ordered 40 mg PO DAILY Sodium Chloride 0.9% [Saline Flush] Med 01/03/19 11:31 Active 10 ml FLUSH ASDIRECTED PRN amLODIPine Besylate [Amlodipine Besylate] Med 01/04/19 09:00 Ordered 10 mg PO DAILY carBAMazepine [TEGretol Tab] Med 01/03/19 14:00 Ordered 200 mg PO TID cefTRIAXone [Rocephin] 1 gm Med 01/03/19 12:00 Active Sodium Chloride 0.9% [Normal Saline] 50 ml IV Q24H Blood Culture x2 Reflex Set [OM.PC] Stat Oth 01/03/19 13:04 Ordered Peripheral IV Insertion Adult [OM.PC] Routine Oth 01/03/19 11:31 Ordered Saline Lock Insert [OM.PC] Routine Oth 01/03/19 11:31 Ordered Resuscitation Status Routine Resus Stat 01/03/19 11:31 Ordered Medication Orders Acetaminophen (Tylenol) 650 mg PO Q6H PRN PRN Reason: Pain (Mild 1-3)/fever Albuterol (Proventil Neb Soln) 2.5 mg NEB Q6HRRT PRN PRN Reason: Shortness of Breath Albuterol/Ipratropium (Duoneb 3.0-0.5 Mg/3 Ml) 3 ml NEB Q6HRRT YUE Atenolol (Tenormin) 50 mg PO DAILY YUE Azithromycin (Zithromax) 500 mg PO DAILY YUE Carbamazepine (Tegretol Tab) 200 mg PO TID YUE Furosemide (Lasix) 20 mg PO DAILY YUE Guaifenesin/Phenylephrine HCl (Robitussin Dm) ml PO QID PRN PRN Reason: Cough Ceftriaxone Sodium 1 gm/ (Sodium Chloride) 50 mls @ 50 mls/hr IV Q24H YUE Latanoprost (Xalatan 0.005% Ophth Soln) ml EYEBOTH BEDTIME YUE Mometasone Furoate/Formoterol Fumar (Dulera 200-5 Mcg) 2 puff IH BIDRT YUE Non-Formulary Medication (Amlodipine Besylate [Amlodipine Besylate]) 10 mg PO DAILY [facility] Non-Formulary Medication (Ascorbic Acid [Vitamin C]) 250 mg PO BIDMEALS YUE Non-Formulary Medication (Cholecalciferol (Vitamin D3) [Vitamin D3]) 1,000 unit PO DAILY [facility] Non-Formulary Medication (Gabapentin) 600 mg PO TID YUE Omeprazole (Omeprazole) 40 mg PO DAILY [facility] Sodium Chloride (Saline Flush) 10 ml FLUSH ASDIRECTED PRN PRN Reason: Keep Vein Open Assessment/Plan Comment:: Community acquired pneumonia fever, cough, leukocytosis, CXR findings in keeping with pneumonia Sputum cx Blood cx x 2 Ceftriaxone + Azithromycin REstrictive lung disease continue O2 support ICS/LABA duonebs ATC and prn GERD continue PPI HTN continue amlodipine, atenolol DVT ppx SC lovenox Code status FC
[2019-01-03] MEDS: cefTRIAXone 1 GM in Sodium Chloride 0.9% 50 ML IV SCH (14:06)
[2019-01-03] MEDS: Gabapentin 300 MG Cap PO SCH ×2 (14:06→20:32)
[2019-01-03] MEDS: Enoxaparin 40 MG/0.4 ML Syringe SUBCUT SCH (14:06)
[2019-01-03] MEDS: carBAMazepine 200 MG Tab PO SCH ×2 (14:06→20:32)
[2019-01-03] MEDS: Azithromycin 250 MG Tab PO SCH (14:06)
[2019-01-03] MEDS: Albuterol/Ipratropium 3.0-0.5 MG/3 ML Neb Soln NEB SCH ×2 (14:28→17:57)
[2019-01-03] MEDS: Ascorbic Acid 500 MG Tab PO SCH (17:57)
[2019-01-03] MEDS ORDERED: Formoterol/Mometasone 200-5 MCG 8.8 GM Inhaler IH SCH (18:00)
[2019-01-03] MEDS: Acetaminophen 325 MG Tab PO PRN (19:47)
[2019-01-03] MEDS: Latanoprost 0.005% Ophth Soln 2.5 ML Bottle EYEBOTH SCH (20:32)
[2019-01-04] MEDS: Albuterol/Ipratropium 3.0-0.5 MG/3 ML Neb Soln NEB SCH ×4 (01:04→17:39)
[2019-01-04] MEDS: Omeprazole 20 MG Cap.CR PO SCH (05:52)
[2019-01-04 07:10] LABS: ANION GAP 16.5; CHLORIDE,CL 92 mmol/L (101-111); SODIUM,NA 133 mmol/L (135-145)
[2019-01-04] MEDS: amLODIPine 5 MG Tab PO SCH (08:25)
[2019-01-04] MEDS: Ascorbic Acid 500 MG Tab PO SCH ×2 (08:26→17:37)
[2019-01-04] MEDS: Gabapentin 300 MG Cap PO SCH ×3 (08:29→20:42)
[2019-01-04] MEDS: Azithromycin 250 MG Tab PO SCH (08:30)
[2019-01-04] MEDS: carBAMazepine 200 MG Tab PO SCH ×3 (08:30→20:41)
[2019-01-04] MEDS: Furosemide 20 MG Tab PO SCH (08:31)
[2019-01-04] MEDS: Atenolol 50 MG Tab PO SCH (08:31)
[2019-01-04] MEDS: Sodium Chloride 0.9% 10 ML Syringe FLUSH PRN ×3 (08:33→12:56)
[2019-01-04] MEDS: Cholecalciferol (Vitamin D3) 25 MCG Tab PO SCH (08:33)
[2019-01-04] MEDS: Enoxaparin 40 MG/0.4 ML Syringe SUBCUT SCH (08:34)
[2019-01-04] MEDS ORDERED: Potassium Chloride 10 MEQ Tab.ER PO ONE (09:02)
--- NOTE | 2019-01-04 11:08 | PCM.PN ---
- General Info Date of Service: 01/04/19 Admission Dx/Problem (Free Text): Admission Diagnosis/Problem Admission Diagnosis/Problem Pneumonia Subjective Update: Pt seen and examined Complains of dysuria Cough is improved - Review of Systems General: Denies: Fever HEENT: Reports: No Symptoms Pulmonary: Reports: Cough Cardiovascular: Reports: No Symptoms Gastrointestinal: Reports: No Symptoms Genitourinary: Reports: Dysuria Musculoskeletal: Reports: No Symptoms Skin: Reports: No Symptoms - Patient Data Vitals - Most Recent: Last Vital Signs Temp 36.5 C 01/04/19 07:52 Pulse 88 01/04/19 08:31 Resp 20 01/04/19 07:52 BP 118/63 01/04/19 08:31 Pulse Ox 100 01/04/19 07:58 Weight - Most Recent: 93.894 kg I&O - Last 24 Hours: Intake & Output 01/03/19 01/04/19 01/04/19 22:59 06:59 14:59 Intake Total 50 240 Balance 50 240 Lab Results Last 24 Hours: Laboratory Results - last 24 hr 01/03/19 01/03/19 01/03/19 Range/Units 12:12 12:12 12:12 WBC 14.2 H (5.0-10.0) 10^3/uL RBC 4.45 (4.2-5.4) 10^6/uL Hgb 12.9 (12.0-16.0) g/dL Hct 40.0 (37.0-47.0) % MCV 89.9 (80-100) fL MCH 29.0 (27.0-34.0) pg MCHC 32.3 L (33.0-35.0) g/dL Plt Count 269 (150-450) 10^3/uL Sodium 132 L (135-145) mmol/L Potassium 4.0 (3.6-5.0) mmol/L Chloride 91 L (101-111) mmol/L Carbon Dioxide 28.0 (21.0-31.0) mmol/L Anion Gap 17.0 BUN 14 (7-18) mg/dL Creatinine 0.7 (0.6-1.3) mg/dL Est Cr Clr Drug Dosing 62.01 mL/min Estimated GFR (MDRD) > 60 Glucose 153 H (74-105) mg/dL Calcium 9.3 (8.4-10.2) mg/dl B-Natriuretic Peptide 30 (0-100) pg/ml Urine Color (YELLOW) Urine Appearance (CLEAR) Urine pH (5.0-9.0) Ur Specific [place] (1.005-1.030) Urine Protein (NEGATIVE) Urine Glucose (UA) (NEGATIVE) Urine Ketones (NEGATIVE) Urine Occult Blood (NEGATIVE) Urine Nitrite (NEGATIVE) Urine Bilirubin (NEGATIVE) Urine Urobilinogen (0.2-1.0) mg/dL Ur Leukocyte Esterase (NEGATIVE) Urine RBC /HPF Urine WBC (0-5/HPF) /HPF Ur Epithelial Cells (NOT SEEN) /HPF Urine Bacteria (0-FEW/HPF) /HPF Urine Mucus (NOT SEEN) /LPF 01/03/19 01/04/19 01/04/19 Range/Units 19:40 06:00 06:10 WBC 9.7 (5.0-10.0) 10^3/uL RBC 4.13 L (4.2-5.4) 10^6/uL Hgb 11.9 L (12.0-16.0) g/dL Hct 36.9 L (37.0-47.0) % MCV 89.3 (80-100) fL MCH 28.8 (27.0-34.0) pg MCHC 32.2 L (33.0-35.0) g/dL Plt Count 223 (150-450) 10^3/uL Sodium (135-145) mmol/L Potassium (3.6-5.0) mmol/L Chloride (101-111) mmol/L Carbon Dioxide (21.0-31.0) mmol/L Anion Gap BUN (7-18) mg/dL Creatinine (0.6-1.3) mg/dL Est Cr Clr Drug Dosing mL/min Estimated GFR (MDRD) Glucose (74-105) mg/dL Calcium (8.4-10.2) mg/dl B-Natriuretic Peptide (0-100) pg/ml Urine Color Yellow Yellow (YELLOW) Urine Appearance Slightly cloudy Cloudy (CLEAR) Urine pH 6.0 6.0 (5.0-9.0) Ur Specific [place] 1.025 1.020 (1.005-1.030) Urine Protein 100 H 100 H (NEGATIVE) Urine Glucose (UA) Negative Negative (NEGATIVE) Urine Ketones Negative Negative (NEGATIVE) Urine Occult Blood Large H Moderate H (NEGATIVE) Urine Nitrite Negative Negative (NEGATIVE) Urine Bilirubin Negative Negative (NEGATIVE) Urine Urobilinogen 1.0 0.2 (0.2-1.0) mg/dL Ur Leukocyte Esterase Small H Small H (NEGATIVE) Urine RBC 20-30 H 5-10 H /HPF Urine WBC 50-75 H >100 H (0-5/HPF) /HPF Ur Epithelial Cells Few Few (NOT SEEN) /HPF Urine Bacteria Moderate H Many H (0-FEW/HPF) /HPF Urine Mucus Few H (NOT SEEN) /LPF 01/04/19 Range/Units 06:10 WBC (5.0-10.0) 10^3/uL RBC (4.2-5.4) 10^6/uL Hgb (12.0-16.0) g/dL Hct (37.0-47.0) % MCV (80-100) fL MCH (27.0-34.0) pg MCHC (33.0-35.0) g/dL Plt Count (150-450) 10^3/uL Sodium 133 L (135-145) mmol/L Potassium 3.5 L (3.6-5.0) mmol/L Chloride 92 L (101-111) mmol/L Carbon Dioxide 28.0 (21.0-31.0) mmol/L Anion Gap 16.5 BUN 16 (7-18) mg/dL Creatinine 0.8 (0.6-1.3) mg/dL Est Cr Clr Drug Dosing 54.25 mL/min Estimated GFR (MDRD) > 60 Glucose 118 H (74-105) mg/dL Calcium 8.9 (8.4-10.2) mg/dl B-Natriuretic Peptide (0-100) pg/ml Urine Color (YELLOW) Urine Appearance (CLEAR) Urine pH (5.0-9.0) Ur Specific [place] (1.005-1.030) Urine Protein (NEGATIVE) Urine Glucose (UA) (NEGATIVE) Urine Ketones (NEGATIVE) Urine Occult Blood (NEGATIVE) Urine Nitrite (NEGATIVE) Urine Bilirubin (NEGATIVE) Urine Urobilinogen (0.2-1.0) mg/dL Ur Leukocyte Esterase (NEGATIVE) Urine RBC /HPF Urine WBC (0-5/HPF) /HPF Ur Epithelial Cells (NOT SEEN) /HPF Urine Bacteria (0-FEW/HPF) /HPF Urine Mucus (NOT SEEN) /LPF Med Orders - Current: Current Medications Acetaminophen (Tylenol) 650 mg PO Q6H PRN PRN Reason: Pain (Mild 1-3)/fever Last Admin: 01/03/19 19:47 Dose: 650 mg Albuterol (Proventil Neb Soln) 2.5 mg NEB Q6HRRT PRN PRN Reason: Shortness of Breath Albuterol/Ipratropium (Duoneb 3.0-0.5 Mg/3 Ml) 3 ml NEB Q6HRRT [facility] Last Admin: 01/04/19 07:56 Dose: 3 ml Amlodipine Besylate (Norvasc) 10 mg PO DAILY [facility] Last Admin: 01/04/19 08:25 Dose: 10 mg Ascorbic Acid (Vitamin C) 250 mg PO BIDMEALS [facility] Last Admin: 01/04/19 08:26 Dose: 250 mg Atenolol (Tenormin) 50 mg PO DAILY [facility] Last Admin: 01/04/19 08:31 Dose: 50 mg Azithromycin (Zithromax) 500 mg PO DAILY [facility] Last Admin: 01/04/19 08:30 Dose: 500 mg Carbamazepine (Tegretol Tab) 200 mg PO TID [facility] Last Admin: 01/04/19 08:30 Dose: 200 mg Cholecalciferol (Vitamin D3) 25 mcg PO DAILY [facility] Last Admin: 01/04/19 08:33 Dose: 25 mcg Enoxaparin Sodium (Lovenox) 40 mg SUBCUT DAILY [facility] Last Admin: 01/04/19 08:34 Dose: 40 mg Furosemide (Lasix) 20 mg PO DAILY [facility] Last Admin: 01/04/19 08:31 Dose: 20 mg Gabapentin (Neurontin) 600 mg PO TID [facility] Last Admin: 01/04/19 08:29 Dose: 600 mg Guaifenesin/Phenylephrine HCl (Robitussin Dm) 5 ml PO QID PRN PRN Reason: Cough Last Admin: 01/03/19 14:06 Dose: 5 ml Ceftriaxone Sodium 1 gm/ (Sodium Chloride) 50 mls @ 50 mls/hr IV Q24H [facility] Last Admin: 01/03/19 14:06 Dose: 50 mls/hr Latanoprost (Xalatan 0.005% Ophth Soln) 0 ml EYEBOTH BEDTIME [facility] Last Admin: 01/03/19 20:32 Dose: 1 drop Omeprazole (Omeprazole) 40 mg PO ACBRK [facility] Last Admin: 01/04/19 05:52 Dose: 40 mg Sodium Chloride (Saline Flush) 10 ml FLUSH ASDIRECTED PRN PRN Reason: Keep Vein Open Last Admin: 01/04/19 08:33 Dose: 10 ml Discontinued Medications Mometasone Furoate/Formoterol Fumar (Dulera 200-5 Mcg) 2 puff IH BIDRT [facility] Potassium Chloride (Klor-Con 10) 40 meq PO ONETIME ONE Stop: 01/04/19 09:03 Last Admin: 01/04/19 09:11 Dose: 40 meq - Exam General: Alert, Oriented HEENT: Pupils Equal Neck: Supple Lungs: Clear to Auscultation, Normal Respiratory Effort Cardiovascular: Regular Rate, Regular Rhythm GI/Abdominal Exam: Normal Bowel Sounds, Soft, Non-Tender, No Organomegaly Extremities: Normal Inspection, Normal Range of Motion, Non-Tender, No Pedal Edema - Problem List Review Problem List Initiated/Reviewed/Updated: Yes - My Orders Last 24 Hours: My Active Orders 01/03/19 11:31 Patient Status [ADT] Routine Ambulate [RC] ASDIRECTED Height and Weight [RC] 06 Oxygen Therapy [RC] .PRN Up With Assistance [RC] ASDIRECTED VTE/DVT Education [RC] PER UNIT ROUTINE Vital Signs [RC] 00,04,08,12,16,20 OT Evaluation and Treatment [CONS] Routine PT Evaluation and Treatment [CONS] Routine Sodium Chloride 0.9% [Saline Flush] 10 ml FLUSH ASDIRECTED PRN Peripheral IV Insertion Adult [OM.PC] Routine Saline Lock Insert [OM.PC] Routine Resuscitation Status Routine 01/03/19 11:33 RT Chest Physiotherapy [RC] ASDIRECTED RT Incentive Spirometry [RC] ASDIRECTED Albuterol [Proventil Neb Soln] 2.5 mg NEB Q6HRRT PRN 01/03/19 12:00 Azithromycin [Zithromax] 500 mg PO DAILY cefTRIAXone [Rocephin] 1 gm Sodium Chloride 0.9% [Normal Saline] 50 ml IV Q24H 01/03/19 13:00 Albuterol/Ipratropium [DuoNeb 3.0-0.5 MG/3 ML] 3 ml NEB Q6HRRT 01/03/19 13:03 CULTURE SPUTUM + SMEAR [RM] Routine 01/03/19 13:04 Acetaminophen [Tylenol] 650 mg PO Q6H PRN Dextromethorphan/guaiFENesin [Robitussin DM] 5 ml PO QID PRN Blood Culture x2 Reflex Set [OM.PC] Stat 01/03/19 13:15 Enoxaparin [Lovenox] 40 mg SUBCUT DAILY 01/03/19 13:40 CULTURE BLOOD [BC] Stat 01/03/19 13:45 CULTURE BLOOD [BC] Stat 01/03/19 14:00 Gabapentin [Neurontin] 600 mg PO TID carBAMazepine [TEGretol Tab] 200 mg PO TID 01/03/19 14:26 RT Aerosol Therapy [RC] ASDIRECTED 01/03/19 18:00 Ascorbic Acid [Vitamin C] 250 mg PO BIDMEALS 01/03/19 21:00 Latanoprost [Xalatan 0.005% Ophth Soln] 0 ml EYEBOTH BEDTIME 01/04/19 06:00 Omeprazole 40 mg PO ACBRK 01/04/19 09:00 Atenolol [Tenormin] 50 mg PO DAILY Cholecalciferol (Vitamin D3) [Vitamin D3] 25 mcg PO DAILY Furosemide [Lasix] 20 mg PO DAILY amLODIPine [Norvasc] 10 mg PO DAILY 01/05/19 05:11 BASIC METABOLIC PANEL,BMP [CHEM] AM CBC W/O DIFF,HEMOGRAM [HEME] AM 01/06/19 05:11 BASIC METABOLIC PANEL,BMP [CHEM] AM CBC W/O DIFF,HEMOGRAM [HEME] AM - Plan Plan:: Community acquired pneumonia fever, cough, leukocytosis, CXR findings in keeping with pneumonia Sputum cx Blood cx x 2 Ceftriaxone + Azithromycin UTI Urinalysis suggests UTI Empirical therapy with ceftriaxone check urine cx REstrictive lung disease continue O2 support ICS/LABA duonebs ATC and prn GERD continue PPI HTN continue amlodipine, atenolol DVT ppx SC lovenox Code status FC
[2019-01-04] MEDS: Acetaminophen 325 MG Tab PO PRN ×2 (11:11→22:46)
[2019-01-04] MEDS: cefTRIAXone 1 GM in Sodium Chloride 0.9% 50 ML IV SCH (12:03)
[2019-01-04] MEDS: Latanoprost 0.005% Ophth Soln 2.5 ML Bottle EYEBOTH SCH (20:43)
[2019-01-05] MEDS: Albuterol/Ipratropium 3.0-0.5 MG/3 ML Neb Soln NEB SCH ×2 (01:18→07:25)
[2019-01-05] MEDS: Omeprazole 20 MG Cap.CR PO SCH (05:57)
[2019-01-05 07:13] LABS: CHLORIDE,CL 97 mmol/L (101-111); SODIUM,NA 135 mmol/L (135-145)
[2019-01-05] MEDS: Sodium Chloride 0.9% 10 ML Syringe FLUSH PRN ×2 (08:37→10:55)
[2019-01-05] MEDS: Gabapentin 300 MG Cap PO SCH (08:39)
[2019-01-05] MEDS: amLODIPine 5 MG Tab PO SCH (08:40)
[2019-01-05] MEDS: Ascorbic Acid 500 MG Tab PO SCH (08:40)
[2019-01-05] MEDS: Azithromycin 250 MG Tab PO SCH (08:41)
[2019-01-05] MEDS: carBAMazepine 200 MG Tab PO SCH (08:42)
[2019-01-05] MEDS: Atenolol 50 MG Tab PO SCH (08:42)
[2019-01-05] MEDS: Furosemide 20 MG Tab PO SCH (08:42)
[2019-01-05] MEDS: Enoxaparin 40 MG/0.4 ML Syringe SUBCUT SCH (08:43)
[2019-01-05] MEDS: Cholecalciferol (Vitamin D3) 25 MCG Tab PO SCH (08:44)
--- NOTE | 2019-01-05 09:55 | PCM.DCSUM1 ---
Discharge Summary - Hospital Course Free Text/Narrative:: 78 yo F with PMH of restrictive lung disease on home oxygen (2L at rest, 3L with activity), hypertension, GERD, who presents with cough and low grade fever. Patient reports that symptoms had been ongoing for a week Cough is productive of sputum, however patient swallows sputum Also reports low grade fever. In clinic today was 100.1F No chest pain, no SOB, no nausea, no vomiting, no abdominal pain Was seen at PCP clinic where labs showed leucocytosis, and CXR showed RML pneumonia. Was started on ceftriaxone/azithromycin Patient had dysuria. Urinalysis positive for UTI. Improved during admission Discharged on Augmentin for 5 days and Azithromycin for 3 days. Follow up with PCP Diagnosis: Stroke: No Modified [place] Scale: No Symptoms at All Modified [place] Scale Score: 0 - Discharge Data Discharge Date: 01/05/19 Discharge Disposition: Home, Self-Care 01 Condition: Good - Referral to Home Health Primary Care Physician: Allie Love CASE PACKER - Patient Summary/Data Consults: Consultations 01/03/19 11:31 OT Evaluation and Treatment [CONS] Routine PT Evaluation and Treatment [CONS] Routine - Patient Instructions Diet: Usual Diet as Tolerated Activity: As Tolerated - Discharge Plan Prescriptions/Med Rec: Amoxicillin/Clavulanate K [Augmentin 875-125 MG] 1 tab PO BID 5 Days #10 tablet Azithromycin [Zithromax] 500 mg PO DAILY 3 Days #3 tablet Home Medications: Home Meds Furosemide 20 mg PO DAILY 06/27/13 [History] Latanoprost 1 drop EYEBOTH BEDTIME 06/27/13 [History] Omeprazole 40 mg PO DAILY 12/28/13 [History] Trospium Chloride 20 mg PO BIDMEALS 07/21/17 [History] Ascorbic Acid [Vitamin C] 250 mg PO BIDMEALS 07/26/17 [History] carBAMazepine [Carbamazepine] 200 mg PO TID 07/26/17 [History] Acetaminophen [Tylenol] 650 mg PO Q6H PRN 5 Days #20 tablet 07/27/17 [Rx] Atenolol 50 mg PO DAILY 01/03/19 [History] Cholecalciferol (Vitamin D3) [Vitamin D3] 1,000 unit PO DAILY 01/03/19 [History] Gabapentin [Neurontin] 600 mg PO TID 01/03/19 [History] amLODIPine Besylate [Amlodipine Besylate] 10 mg PO DAILY 01/03/19 [History] guaiFENesin/Dextromethorphan [Guaifenesin Dm Syrup] 100 mg PO QID PRN 01/03/19 [ History] Amoxicillin/Clavulanate K [Augmentin 875-125 MG] 1 tab PO BID 5 Days #10 tablet 01/05/19 [Rx] Azithromycin [Zithromax] 500 mg PO DAILY 3 Days #3 tablet 01/05/19 [Rx] - Discharge Summary/Plan Comment DC Time >30 min.: Yes - General Info Date of Service: 01/05/19 Admission Dx/Problem (Free Text: Admission Diagnosis/Problem Admission Diagnosis/Problem Pneumonia Subjective Update: Pt seen and examined Dysuria is resolved Cough is improved - Review of Systems General: Reports: No Symptoms HEENT: Reports: No Symptoms Pulmonary: Reports: Cough Cardiovascular: Reports: No Symptoms Gastrointestinal: Reports: No Symptoms Genitourinary: Reports: No Symptoms. Denies: Dysuria Musculoskeletal: Reports: No Symptoms Skin: Reports: No Symptoms - Patient Data Vitals - Most Recent: Last Vital Signs Temp 36.5 C 01/05/19 07:58 Pulse 78 01/05/19 08:42 Resp 20 01/05/19 07:58 BP 124/64 01/05/19 08:42 Pulse Ox 99 01/05/19 07:58 Weight - Most Recent: 93.621 kg I&O - Last 24 hours: Intake & Output 01/04/19 01/05/19 01/05/19 22:59 06:59 14:59 Intake Total 30 Balance 30 Lab Results - Last 24 hrs: Laboratory Results - last 24 hr 01/05/19 01/05/19 Range/Units 06:20 06:20 WBC 5.9 (5.0-10.0) 10^3/uL RBC 3.87 L (4.2-5.4) 10^6/uL Hgb 11.1 L (12.0-16.0) g/dL Hct 35.2 L (37.0-47.0) % MCV 91.0 (80-100) fL MCH 28.7 (27.0-34.0) pg MCHC 31.5 L (33.0-35.0) g/dL Plt Count 220 (150-450) 10^3/uL Sodium 135 (135-145) mmol/L Potassium 4.0 (3.6-5.0) mmol/L Chloride 97 L (101-111) mmol/L Carbon Dioxide 29.0 (21.0-31.0) mmol/L Anion Gap 13.0 BUN 13 (7-18) mg/dL Creatinine 0.7 (0.6-1.3) mg/dL Est Cr Clr Drug Dosing 62.01 mL/min Estimated GFR (MDRD) > 60 Glucose 110 H (74-105) mg/dL Calcium 8.7 (8.4-10.2) mg/dl DESHAUN Results - Last 24 hrs: Microbiology 01/03/19 13:45 Aerobic Blood Culture - Preliminary Blood - Venous - Lab Draw NO GROWTH AFTER 1 DAY Anaerobic Blood Culture - Preliminary NO GROWTH AFTER 1 DAY 01/03/19 13:40 Aerobic Blood Culture - Preliminary Blood - Venous NO GROWTH AFTER 1 DAY Anaerobic Blood Culture - Preliminary NO GROWTH AFTER 1 DAY Med Orders - Current: Current Medications Acetaminophen (Tylenol) 650 mg PO Q6H PRN PRN Reason: Pain (Mild 1-3)/fever Last Admin: 01/04/19 22:46 Dose: 650 mg Albuterol (Proventil Neb Soln) 2.5 mg NEB Q6HRRT PRN PRN Reason: Shortness of Breath Albuterol/Ipratropium (Duoneb 3.0-0.5 Mg/3 Ml) 3 ml NEB Q6HRRT [facility] Last Admin: 01/05/19 07:25 Dose: 3 ml Amlodipine Besylate (Norvasc) 10 mg PO DAILY [facility] Last Admin: 01/05/19 08:40 Dose: 10 mg Ascorbic Acid (Vitamin C) 250 mg PO BIDMEALS [facility] Last Admin: 01/05/19 08:40 Dose: 250 mg Atenolol (Tenormin) 50 mg PO DAILY [facility] Last Admin: 01/05/19 08:42 Dose: 50 mg Azithromycin (Zithromax) 500 mg PO DAILY [facility] Last Admin: 01/05/19 08:41 Dose: 500 mg Carbamazepine (Tegretol Tab) 200 mg PO TID [facility] Last Admin: 01/05/19 08:42 Dose: 200 mg Cholecalciferol (Vitamin D3) 25 mcg PO DAILY [facility] Last Admin: 01/05/19 08:44 Dose: 25 mcg Enoxaparin Sodium (Lovenox) 40 mg SUBCUT DAILY [facility] Last Admin: 01/05/19 08:43 Dose: 40 mg Furosemide (Lasix) 20 mg PO DAILY [facility] Last Admin: 01/05/19 08:42 Dose: 20 mg Gabapentin (Neurontin) 600 mg PO TID [facility] Last Admin: 01/05/19 08:39 Dose: 600 mg Guaifenesin/Phenylephrine HCl (Robitussin Dm) 5 ml PO QID PRN PRN Reason: Cough Last Admin: 01/03/19 14:06 Dose: 5 ml Ceftriaxone Sodium 1 gm/ (Sodium Chloride) 50 mls @ 50 mls/hr IV Q24H [facility] Last Admin: 01/04/19 12:03 Dose: 50 mls/hr Latanoprost (Xalatan 0.005% Oph Soln) 0 ml EYEBOTH BEDTIME [facility] Last Admin: 01/04/19 20:43 Dose: 1 drop Omeprazole (Omeprazole) 40 mg PO ACBRK [facility] Last Admin: 01/05/19 05:57 Dose: 40 mg Sodium Chloride (Saline Flush) 10 ml FLUSH ASDIRECTED PRN PRN Reason: Keep Vein Open Last Admin: 01/05/19 08:37 Dose: 10 ml Discontinued Medications Mometasone Furoate/Formoterol Fumar (Dulera 200-5 Mcg) 2 puff IH BIDRT [facility] Potassium Chloride (Klor-Con 10) 40 meq PO ONETIME ONE Stop: 01/04/19 09:03 Last Admin: 01/04/19 09:11 Dose: 40 meq - Exam General: Reports: Alert, Oriented HEENT: Reports: Pupils Equal, Pupils Reactive Neck: Reports: Supple, Trachea Midline Lungs: Reports: Clear to Auscultation, Normal Respiratory Effort Cardiovascular: Reports: Regular Rate, Regular Rhythm GI/Abdominal Exam: Normal Bowel Sounds, Soft, Non-Tender, No Organomegaly
[2019-01-05] MEDS ORDERED: cefTRIAXone 1 GM Vial IVPUSH ONE (11:00)
== END 2019-01-05 12:05 | disposition home or self-care (01) | DRG 139 ==
LOC: DL.MS 11:31
PROVIDERS: ADMIT Hospitalist; ATTEND Hospitalist
DX: J18.1 Lobar pneumonia, unspecified organism (principal); N39.0 Urinary tract infection, site not specified; K21.9 Gastro-esophageal reflux disease without esophagitis; G47.30 Sleep apnea, unspecified; M19.90 Unspecified osteoarthritis, unspecified site; G89.29 Other chronic pain; M54.9 Dorsalgia, unspecified; J98.4 Other disorders of lung; Z79.899 Other long term (current) drug therapy; Z88.1 Allergy status to other antibiotic agents; Z98.49 Cataract extraction status, unspecified eye; Z90.710 Acquired absence of both cervix and uterus; Z90.89 Acquired absence of other organs; Z96.649 Presence of unspecified artificial hip joint
CPT/HCPCS: 36415; 71046; 80048; 81001; 83880; 85027; 87040; 87086; 94010; 94640; 94667; 94760; A9270-GY; J0696; J1650; J7050; J7620-GY

== ENCOUNTER 2020-08-17 21:20 | Emergency (ER) | payer OTHER ==
[2020-08-17] MEDS ORDERED: Propofol 200 MG/20 ML SDV IV ONE (21:21)
--- NOTE | 2020-08-17 22:28 | CR ---
PROCEDURE INFORMATION: Exam: XR Left Ankle Exam date and time: 08/17/2020 9:58 PM Age: 79 years old Clinical indication: Injury or trauma; Ankle; Left; Severity of dislocation not specified TECHNIQUE: Imaging protocol: XR Left ankle. Views: 1 or 2 views. COMPARISON: CR Ankle 2V Lt 07/21/2017 9:35 PM FINDINGS: Bones/joints: Fracture dislocation of the left ankle. Comminuted oblique fracture of the distal fibular metaphysis. Displaced fracture of the medial malleolus of the tibia. Complete medial dislocation of the tibia on the talus. No talar fracture evident. No calcaneal fracture. Midfoot appears well aligned. The medial malleolus fragment remains aligned with the talus. The distal fibular fragment remains aligned with the talus. Soft tissues: Soft tissue swelling of the ankle and dorsum of the foot. IMPRESSION: 1. Fracture dislocation of the left ankle. 2. Displaced medial malleolus fracture. 3. Comminuted displaced distal left fibular metaphyseal fracture. 4. Complete displacement of the tibia medially on the talus. The proximal fibular shaft is displaced medially with the tibia.
--- NOTE | 2020-08-17 22:52 | CR ---
PROCEDURE INFORMATION: Exam: XR Left Ankle Exam date and time: 08/17/2020 10:34 PM Age: 79 years old Clinical indication: Injury or trauma; Fall; Dislocation; Ankle; Left; Additional info: Postreduction TECHNIQUE: Imaging protocol: XR Left ankle. Views: 1 or 2 views. COMPARISON: CR Ankle Min 3V Lt 08/17/2020 9:58 PM FINDINGS: Bones/joints: Post reduction with improved alignment. There is still mild medial subluxation of the tibia on the talus. Significant improvement in alignment of the distal fibular fracture. There is persistent mild distraction of approximately 4 mm. Soft tissues: Soft tissue swelling. IMPRESSION: Post closed reduction of fracture dislocation of left ankle with significant improvement in alignment. There is still mild medial subluxation of the tibia on the talus. This is approximately 5-6 mm. Distal fibular fracture shows significant improvement in alignment with mild persistent displacement.
[2020-08-17] MEDS ORDERED: fentaNYL 100 MCG/2 ML SDV IVPUSH ONE (22:54)
--- NOTE | 2020-08-18 04:54 | EDM.PDOC ---
ED HPI GENERAL MEDICAL PROBLEM - General Chief Complaint: Lower Extremity Injury/Pain Stated Complaint: [facility] Time Seen by Provider: 08/17/20 21:20 Source of Information: Reports: Patient, EMS History Limitations: Reports: No Limitations - History of Present Illness INITIAL COMMENTS - FREE TEXT/NARRATIVE: ED via [facility] with report of deformity to left ankle, getting out of chair went to lean on dresser and slipped twisted ankle. Fell did not hit head. Fentanyl 50mcg IV per EMS. Minimal pain on arrival. 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, Other Medication(s), Oxygen - Related Data Allergies Allergy/AdvReac Type Severity Reaction Status Date / Time levofloxacin Allergy Itching Verified 08/17/20 21:12 Home Meds: Home Meds Furosemide 20 mg PO DAILY 06/27/13 [History] Latanoprost 1 drop EYEBOTH BEDTIME 06/27/13 [History] Omeprazole 40 mg PO DAILY 12/28/13 [History] Trospium Chloride 20 mg PO BIDMEALS 07/21/17 [History] Ascorbic Acid [Vitamin C] 250 mg PO BIDMEALS 07/26/17 [History] carBAMazepine [Carbamazepine] 200 mg PO TID 07/26/17 [History] Acetaminophen [Tylenol] 650 mg PO Q6H PRN 5 Days #20 tablet 07/27/17 [Rx] Cholecalciferol (Vitamin D3) [Vitamin D3] 1,000 unit PO DAILY 01/03/19 [History] Gabapentin [Neurontin] 600 mg PO TID 01/03/19 [History] amLODIPine Besylate [Amlodipine Besylate] 10 mg PO DAILY 01/03/19 [History] atenoloL [Atenolol] 50 mg PO DAILY 01/03/19 [History] guaiFENesin/Dextromethorphan [Guaifenesin Dm Syrup] 100 mg PO QID PRN 01/03/19 [History] Amoxicillin/Clavulanate K [Augmentin 875-125 MG] 1 tab PO BID 5 Days #10 tablet 01/05/19 [Rx] Azithromycin [Zithromax] 500 mg PO DAILY 3 Days #3 tablet 01/05/19 [Rx] Past Medical History HEENT History: Reports: Cataract, Hard of Hearing, Impaired Vision Cardiovascular History: Reports: Hypertension Respiratory History: Reports: Sleep Apnea, Other (See Below) Other Respiratory History: O2 at 2-3L per nasal cannula at home Gastrointestinal History: Reports: GERD Genitourinary History: Reports: UTI, Recurrent, Other (See Below) Other Genitourinary History: occasional stress incontinence 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: Musculoskeletal History: Reports: Arthritis, Back Pain, Chronic Oncologic (Cancer) History: Reports: Uterine - Infectious Disease History Infectious Disease History: Reports: Chicken Pox, Measles, Mumps - Past Surgical History HEENT Surgical History: Reports: Cataract Surgery, Tonsillectomy Respiratory Surgical History: Reports: None Female Surgical History: Reports: Hysterectomy, Salpingo-Oophorectomy, Ureteral Stent Other Female Surgeries/Procedures: hysterectomy Neurological Surgical History: Reports: None Musculoskeletal Surgical History: Reports: Hip Replacement Other Musculoskeletal Surgeries/Procedures:: has appointment to see if she needs hip replacemnt Oncologic Surgical History: Reports: Other (See Below) Other Oncologic Surgeries/Procedures: Hysterectomy Social & Family History - Family History Family Medical History: No Pertinent Family History - Tobacco Use Tobacco Use Status *Q: Never Tobacco User Second Hand Smoke Exposure: No - Caffeine Use Caffeine Use: Reports: Coffee - Recreational Drug Use Recreational Drug Use: No - Living Situation & Occupation Living situation: Reports: with Family Occupation: Retired Review of Systems - Review of Systems Review Of Systems: Comprehensive ROS is negative, except as noted in HPI. ED EXAM, GENERAL - Physical Exam Exam: See Below Exam Limited By: No Limitations General Appearance: Alert, Mild Distress Eye Exam: Bilateral Eye: EOMI Ears: Normal External Exam, Hearing Grossly Normal Nose: Normal Inspection Throat/Mouth: Normal Inspection Head: Atraumatic, Normocephalic Neck: Full Range of Motion Respiratory/Chest: No Respiratory Distress, Lungs Clear, Decreased Breath Sounds (bilateral ) Cardiovascular: Normal Peripheral Pulses, Regular Rate, Rhythm GI/Abdominal: Normal Bowel Sounds, Soft, Other (last oral intake 4pm) Extremities: Other (obbvious deformity rotation left ankle swollen skin taut intact) Neurological: Alert, Oriented, Normal Cognition Psychiatric: Normal Affect, Normal Mood Skin Exam: Warm, Ecchymosis (left ankle, thin medial reddish ecchymosis medial ankle) ED TRAUMA EXTREMITY PROCEDURES - Joint Reduction Left Ankle Sedation: Conscious Sedation Pre-Procedure NV Status: Normal Post-Procedure NV Status: Normal Technique: Traction/Counter Traction Number of Attempts: 1 Post-Reduction Imaging: Acceptably Reduced Joint Reduction Complications: No - Splinting Left Lower Extremity Pre-Procedure NV Status: Normal Post-Procedure NV Status: Normal Splint Material: Fiberglass Splint Design: Posterior Applied & Form Fitted By: Provider Provider Post-Splint Application NV Check: NV Status Normal, Good Position Complications: No Course - Vital Signs Last Recorded V/S: Last Vital Signs Temp 97.9 F 08/17/20 21:17 Pulse 85 08/17/20 21:17 Resp 18 08/17/20 21:17 BP 113/98 H 08/17/20 21:17 Pulse Ox 100 08/17/20 21:17 - Orders/Labs/Meds Meds: Medications Discontinued Medications Generic Name Dose Route Start Last Admin Trade Name April PRN Reason Stop Dose Admin Fentanyl 25 mcg 08/17/20 22:54 08/17/20 23:01 Fentanyl 100 Mcg/2 Ml Sdv IVPUSH 08/17/20 22:55 25 mcg ONETIME ONE Administration - Re-Assessments/Exams Free Text/Narrative Re-Assessment/Exam: 08/18/20 04:53 Obvious deformity to left ankle on arrival. Pedal pulses present, skin intact taut medial ankle. pain controlled with fentanyl. TC Dr Toni Marvin, accepting patient. Tx via [facility]. Departure - Departure Time of Disposition: 23:00 Disposition: DC/[facility]fer to [facility] 02 Condition: Fair Clinical Impression: Fracture of medial malleolus, left, closed Qualifiers: Encounter type: initial encounter Fracture alignment: displaced Qualified Code(s): S82.52XA - Displaced fracture of medial malleolus of left tibia, initial encounter for closed fracture Ankle fracture, left Qualifiers: Encounter type: initial encounter Fracture type: closed Qualified Code(s): S82.892A - Other fracture of left lower leg, initial encounter for closed fracture Fibula fracture Qualifiers: Encounter type: initial encounter Fibula location: distal Fracture type: closed Fracture morphology: unspecified fracture morphology Laterality: left Qualified Code(s): S82.832A - Other fracture of upper and lower end of left fibula, initial encounter for closed fracture - Discharge Information *PRESCRIPTION DRUG MONITORING PROGRAM REVIEWED*: No *COPY OF PRESCRIPTION DRUG MONITORING REPORT IN PATIENT TAYLOR: No Referrals: PCP,None [Primary Care Provider] - Forms: ED Department Discharge Sepsis Event Note (ED) - Evaluation Sepsis Screening Result: No Definite Risk - Focused Exam Vital Signs: Vital Signs Temp Pulse Resp BP Pulse Ox 08/17/20 21:17 97.9 F 85 18 113/98 H 100
== END 2020-08-17 23:03 ==
LOC: DL.ED 21:20
DX: S82.52XA Displaced fracture of medial malleolus of left tibia, initial encounter for closed fracture (principal); S82.892A Other fracture of left lower leg, initial encounter for closed fracture; S82.832A Other fracture of upper and lower end of left fibula, initial encounter for closed fracture; I10 Essential (primary) hypertension; K21.9 Gastro-esophageal reflux disease without esophagitis; Z88.1 Allergy status to other antibiotic agents; Z79.899 Other long term (current) drug therapy; X50.1XXA Overexertion from prolonged static or awkward postures, initial encounter
CPT/HCPCS: 01462; 27810; 29515; 73600-LT; 96374; 99283; 99285-25; J2704; J3010

== ENCOUNTER 2020-08-25 01:03 | Inpatient (IN) | payer MEDICARE, OTHER ==
[2020-08-25] MEDS ORDERED: Docusate Sodium 100 MG Cap PO PRN (13:24)
[2020-08-25] MEDS ORDERED: Acetaminophen 325 MG Tab PO PRN (13:24)
[2020-08-25] MEDS ORDERED: oxyCODONE 5 MG Tab PO PRN (13:29)
--- NOTE | 2020-08-25 13:46 | PCM.HP ---
H&P History of Present Illness - General Date of Service: 08/25/20 Admit Problem/Dx: Admission Diagnosis/Problem Admission Diagnosis/Problem Ankle fracture Source of Information: Patient, Old Records History Limitations: Reports: No Limitations - History of Present Illness Initial Comments - Free Text/Narative: Chief complaint: Recent left ankle fracture status post surgical correction. Patient is a 79-year-old female with a past medical history as listed below presents to the [facility] for acute rehabilitation after receiving treatment for a left ankle fracture. Patient sustained a mechanical fall in the field resulting in a bimalleolar fracture on the left lower extremity. Status post ORIF. Surgery was without complication. Patient requires acute rehabilitation before being sent home. Patient has agreed to these treatment services while admitted. Patient states that she is in a little bit of pain but is mostly comfortable. Denies any lightheadedness/dizziness, headache, chest pain, chest pressure, pleurisy, nausea/vomiting, abdominal discomfort, difficulties with voiding. CODE STATUS reviewed and she is full code. Left Ankle Pain Score (Numeric/FACES): 4 - Related Data Allergies/Adverse Reactions: Allergies Allergy/AdvReac Type Severity Reaction Status Date / Time levofloxacin Allergy Itching Verified 08/25/20 10:56 Home Medications: Home Meds Furosemide 20 mg PO DAILY 06/27/13 [History] Latanoprost 1 drop EYEBOTH BEDTIME 06/27/13 [History] Omeprazole 20 mg PO ACBREAKFAST 12/28/13 [History] Trospium Chloride 20 mg PO BIDMEALS 07/21/17 [History] carBAMazepine [Carbamazepine] 200 mg PO TID 07/26/17 [History] Gabapentin [Neurontin] 600 mg PO TID 01/03/19 [History] atenoloL [Atenolol] 50 mg PO DAILY 01/03/19 [History] Acetaminophen [Pain Relief] 500 mg PO Q8HR 08/25/20 [History] Albuterol [Proventil] 2.5 mg NEB Q4HR PRN 08/25/20 [History] Amoxicillin/Clavulanate K [Augmentin 875-125 MG] 1 tab PO Q12HR 08/25/20 [History] Aspirin 325 mg PO DAILY 08/25/20 [History] Cyanocobalamin (Vitamin B12) [Vitamin B12] 1,000 mcg INJECT ASDIRECTED 08/25/20 [History] Fluticasone/Salmeterol [Advair 100-50] 1 puff INH BID 08/25/20 [History] Ibuprofen 800 mg PO Q8HR PRN 08/25/20 [History] Naproxen 250 mg PO BIDMEALS 08/25/20 [History] amLODIPine [Norvasc] 10 mg PO DAILY 08/25/20 [History] oxyCODONE 5 mg PO Q6HR PRN 08/25/20 [History] Past Medical History HEENT History: Reports: Cataract, Glaucoma, Impaired Vision Cardiovascular History: Reports: Cardiomyopathy (Chronic diastolic congestive heart failure.), Hypertension, Other (See Below) (LVH) Respiratory History: Reports: Sleep Apnea, Other (See Below) Other Respiratory History: O2 at 2-3L per nasal cannula at home. 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 stents every 3 months [employer]GER History: Reports: , Other (See Below) (Endometrial cancer) Musculoskeletal History: Reports: Arthritis, Back Pain, Chronic Oncologic (Cancer) History: Reports: Uterine (Endometrial cancer) - Infectious Disease History Infectious Disease History: Reports: Chicken Pox, Measles, Mumps, Shingles (Postherpetic neuralgia) - Past Surgical History HEENT Surgical History: Reports: Cataract Surgery, Tonsillectomy Respiratory Surgical History: Reports: None Female Surgical History: Reports: Hysterectomy, Salpingo-Oophorectomy, Ureteral Stent Other Female Surgeries/Procedures: hysterectomy Neurological Surgical History: Reports: None Musculoskeletal Surgical History: Reports: Hip Replacement Other Musculoskeletal Surgeries/Procedures:: has appointment to see if she needs hip replacemnt. right hip replacement Oncologic Surgical History: Reports: Other (See Below) Other Oncologic Surgeries/Procedures: Hysterectomy Social & Family History - Family History Family Medical History: No Pertinent Family History - Caffeine Use Caffeine Use: Reports: Coffee - Living Situation & Occupation Living situation: Reports: with Family Occupation: Retired H&P Review of Systems - Review of Systems: Review Of Systems: See Below General: Reports: No Symptoms HEENT: Reports: No Symptoms Pulmonary: Reports: No Symptoms Cardiovascular: Reports: No Symptoms Gastrointestinal: Reports: No Symptoms Genitourinary: Reports: No Symptoms Musculoskeletal: Reports: Joint Pain (In surgical ankle) Skin: Reports: No Symptoms Hematologic/Lymphatic: Reports: No Symptoms Immunologic: Reports: No Symptoms Exam - Exam Exam: See Below - Vital Signs Vital Signs: Last Vital Signs Temp Pulse Resp BP Pulse Ox 92 L 08/25/20 13:25 Weight: 191 lb 9.6 oz - Exam General: Alert, Oriented HEENT: Conjunctiva Clear, EOMI Neck: Supple, Full Range of Motion Lungs: Clear to Auscultation, Normal Respiratory Effort Cardiovascular: Regular Rate GI/Abdominal Exam: Normal Bowel Sounds, Soft, Non-Tender, Other (Obese) Extremities: Normal Inspection, No Pedal Edema, Other (Left ankle is casted) Skin: Warm - Problem List (1) Ankle fracture, left SNOMED Code(s): 48515022 ICD Code: S82.892A - OTH FRACTURE OF LEFT LOWER LEG, INIT FOR CLOS FX Status: Acute Current Visit: No Qualifiers: Encounter type: initial encounter Fracture type: closed Qualified Code(s): S82.892A - Other fracture of left lower leg, initial encounter for closed fracture Problem List Initiated/Reviewed/Updated: Yes Orders Last 24hrs: Active Orders 24 hr Category Date Time Status Patient Status [ADT] Routine ADT 08/25/20 13:25 Active Oxygen Therapy [RC] PRN Care 08/25/20 13:25 Active Pulse Oximetry [RC] PRN Care 08/25/20 13:27 Active Up With Assistance [RC] ASDIRECTED Care 08/25/20 13:24 Active VTE/DVT Education [RC] PER UNIT ROUTINE Care 08/25/20 13:25 Active Vital Signs [RC] QSHIFT Care 08/25/20 13:24 Active OT Evaluation and Treatment [CONS] Routine Cons 08/25/20 13:24 Active PT Evaluation and Treatment [CONS] Routine Cons 08/25/20 13:24 Active Regular Diet [DIET] Diet 08/25/20 Dinner Active Acetaminophen [TylenoL] Med 08/25/20 13:24 Ordered 650 mg PO Q4H PRN Acetaminophen [Tylenol Extra Strength] Med 08/25/20 14:00 Ordered 500 mg PO Q8HR Albuterol Med 08/25/20 13:29 Ordered 2.5 mg NEB Q4HR PRN Aspirin Med 08/26/20 09:00 Ordered 325 mg PO DAILY Docusate Sodium [Colace] Med 08/25/20 13:24 Ordered 100 mg PO BID PRN Fluticasone/Salmeterol Med 08/25/20 21:00 Ordered 1 puff INH BID Furosemide [Lasix] Med 08/26/20 09:00 Ordered 20 mg PO DAILY Gabapentin Med 08/25/20 14:00 Ordered 600 mg PO TID Heparin Sodium Med 08/25/20 14:00 Ordered 5,000 units SUBCUT Q8HR Latanoprost [Xalatan 0.005% Ophth Soln] Med 08/25/20 21:00 Ordered DOSE ml EYEBOTH BEDTIME Naproxen [Naprosyn] Med 08/25/20 18:00 Ordered 250 mg PO BIDMEALS Omeprazole Med 08/26/20 06:00 Ordered 20 mg PO ACBREAKFAST Ondansetron [Zofran ODT] Med 08/25/20 13:24 Ordered 4 mg PO Q6H PRN Trospium Chloride [Trospium Chloride] Med 08/25/20 18:00 Ordered 20 mg PO BIDMEALS amLODIPine [Norvasc] Med 08/26/20 09:00 Ordered 10 mg PO DAILY atenoloL [Tenormin] Med 08/26/20 09:00 Ordered 50 mg PO DAILY carBAMazepine [TEGretol Tab] Med 08/25/20 14:00 Ordered 200 mg PO TID oxyCODONE Med 08/25/20 13:29 Ordered 5 mg PO Q6HR PRN traMADol [Ultram] Med 08/25/20 13:36 Ordered 50 mg PO Q6H PRN Resuscitation Status Routine Resus Stat 08/25/20 13:24 Ordered Medication Orders Acetaminophen (Acetaminophen 325 Mg Tab) 650 mg PO Q4H PRN PRN Reason: Pain (Mild 1-3)/fever Acetaminophen (Acetaminophen 500 Mg Tab) 500 mg PO Q8HR YUE Amlodipine Besylate (Amlodipine 5 Mg Tab) 10 mg PO DAILY YUE Aspirin (Aspirin 325 Mg Tab) 325 mg PO DAILY YUE Atenolol (Atenolol 50 Mg Tab) 50 mg PO DAILY YUE Carbamazepine (Carbamazepine 200 Mg Tab) 200 mg PO TID YUE Docusate Sodium (Docusate Sodium 100 Mg Cap) 100 mg PO BID PRN PRN Reason: Constipation Furosemide (Furosemide 20 Mg Tab) 20 mg PO DAILY [facility] Heparin Sodium (Porcine) (Heparin Sodium 5,000 Units/Ml Vial) 5,000 units SUBCUT Q8HR YUE Latanoprost (Latanoprost 0.005% Ophth Soln 2.5 Ml Bottle) ml EYEBOTH BEDTIME YUE Naproxen (Naproxen 250 Mg Tab) 250 mg PO BIDMEALS YUE Non-Formulary Medication (Albuterol) 2.5 mg NEB Q4HR PRN PRN Reason: Shortness of Breath Non-Formulary Medication (Fluticasone/Salmeterol) 1 puff INH BID YUE Non-Formulary Medication (Gabapentin) 600 mg PO TID YUE Non-Formulary Medication (Trospium Chloride [Trospium Chloride]) 20 mg PO BIDMEALS YUE Omeprazole (Omeprazole 20 Mg Cap.Cr) 20 mg PO ACBREAKFAST [facility] Ondansetron HCl (Ondansetron 4 Mg Tab.Dis) 4 mg PO Q6H PRN PRN Reason: nausea, able to take PO Oxycodone HCl (Oxycodone 5 Mg Tab) 5 mg PO Q6HR PRN PRN Reason: Pain (severe 7-10) Tramadol HCl (Tramadol 50 Mg Tab) 50 mg PO Q6H PRN PRN Reason: Pain Assessment/Plan Comment:: 79-year-old female with a past medical history as listed above who presents to the [facility] for acute rehabilitation status post left ankle frac ture with surgical correction (ORIF of bimalleolar fracture). 1. Status post bimalleolar fracture with surgical repair. Admit to swing bed status for acute rehabilitation. PT and OT consultation. Expect inpatient treatment for approximately a week. Pain control and DVT prophylaxis ordered. Date of next visit and examination will be September 01 if not sooner within the week. All other medical comorbidities are stable and do not require active treatment. We will continue home medications at regular dose. DVT prophylaxis with heparin subcu. CODE STATUS: Full code.
[2020-08-25] MEDS ORDERED: Albuterol 0.083% 2.5 MG/3 ML Neb Soln INH PRN (14:30)
[2020-08-25] MEDS: carBAMazepine 200 MG Tab PO SCH ×2 (14:40→20:36)
[2020-08-25] MEDS: Acetaminophen 500 MG Tab PO SCH ×2 (14:40→21:14)
[2020-08-25] MEDS: Gabapentin 300 MG Cap PO SCH ×2 (14:40→20:36)
[2020-08-25] MEDS: traMADol 50 MG Tab PO PRN (14:41)
[2020-08-25] MEDS: Heparin Sodium 5,000 Units/ML Vial SUBCUT SCH ×2 (16:19→21:15)
[2020-08-25] MEDS ORDERED: Naproxen 250 MG Tab PO SCH (18:00)
[2020-08-25] MEDS ORDERED: Non-Formulary Medication 1 Each (Trospium Chloride [Trospium Chloride] 20 MG Tablet) PO SCH (18:00)
[2020-08-25] MEDS: CLAVULANATE PO SCH (20:31)
[2020-08-25] MEDS: AMOXICILLIN PO SCH (20:31)
[2020-08-25] MEDS: Formoterol/Mometasone 100-5 MCG 8.8 GM Inhaler IH SCH (20:32)
[2020-08-25] MEDS: Latanoprost 0.005% Ophth Soln 2.5 ML Bottle EYEBOTH SCH (20:37)
[2020-08-26] MEDS: traMADol 50 MG Tab PO PRN ×4 (03:54→22:33)
[2020-08-26] MEDS: Omeprazole 20 MG Cap.CR PO SCH (05:57)
[2020-08-26] MEDS: Acetaminophen 500 MG Tab PO SCH ×3 (05:57→21:19)
[2020-08-26] MEDS: Heparin Sodium 5,000 Units/ML Vial SUBCUT SCH ×3 (06:00→21:18)
[2020-08-26] MEDS: Atenolol 50 MG Tab PO SCH (08:21)
[2020-08-26] MEDS: Gabapentin 300 MG Cap PO SCH ×3 (08:22→21:18)
[2020-08-26] MEDS: Aspirin 325 MG Tab PO SCH (08:22)
[2020-08-26] MEDS: Furosemide 20 MG Tab PO SCH (08:22)
[2020-08-26] MEDS: carBAMazepine 200 MG Tab PO SCH ×3 (08:22→21:19)
[2020-08-26] MEDS: amLODIPine 5 MG Tab PO SCH (08:22)
[2020-08-26] MEDS: Formoterol/Mometasone 100-5 MCG 8.8 GM Inhaler IH SCH ×2 (08:24→21:20)
[2020-08-26] MEDS: CLAVULANATE PO SCH ×2 (08:26→21:20)
[2020-08-26] MEDS: AMOXICILLIN PO SCH ×2 (08:26→21:20)
[2020-08-26] MEDS: TROSPIUM CHLORIDE 20 MG PO SCH (13:31)
[2020-08-26] MEDS: Latanoprost 0.005% Ophth Soln 2.5 ML Bottle EYEBOTH SCH (21:23)
[2020-08-27] MEDS: Heparin Sodium 5,000 Units/ML Vial SUBCUT SCH ×3 (05:46→21:57)
[2020-08-27] MEDS: Omeprazole 20 MG Cap.CR PO SCH (05:47)
[2020-08-27] MEDS: Acetaminophen 500 MG Tab PO SCH ×3 (05:47→21:50)
[2020-08-27] MEDS: traMADol 50 MG Tab PO PRN ×2 (06:45→13:12)
[2020-08-27] MEDS: amLODIPine 5 MG Tab PO SCH (08:21)
[2020-08-27] MEDS: Atenolol 50 MG Tab PO SCH (08:21)
[2020-08-27] MEDS: Gabapentin 300 MG Cap PO SCH ×3 (08:22→21:49)
[2020-08-27] MEDS: Aspirin 325 MG Tab PO SCH (08:24)
[2020-08-27] MEDS: AMOXICILLIN PO SCH (08:24)
[2020-08-27] MEDS: Furosemide 20 MG Tab PO SCH (08:24)
[2020-08-27] MEDS: carBAMazepine 200 MG Tab PO SCH ×3 (08:24→21:49)
[2020-08-27] MEDS: CLAVULANATE PO SCH (08:24)
[2020-08-27] MEDS: Formoterol/Mometasone 100-5 MCG 8.8 GM Inhaler IH SCH ×2 (08:24→21:51)
[2020-08-27] MEDS: TROSPIUM CHLORIDE 20 MG PO ONE ×2 (10:52→11:00)
[2020-08-27] MEDS: TROSPIUM CHLORIDE 20 MG PO SCH (15:07)
[2020-08-27] MEDS: Latanoprost 0.005% Ophth Soln 2.5 ML Bottle EYEBOTH SCH (21:52)
[2020-08-28] MEDS: Omeprazole 20 MG Cap.CR PO SCH (06:12)
[2020-08-28] MEDS: Acetaminophen 500 MG Tab PO SCH ×3 (06:14→21:43)
[2020-08-28] MEDS: TROSPIUM CHLORIDE 20 MG PO SCH (06:15)
[2020-08-28] MEDS: Heparin Sodium 5,000 Units/ML Vial SUBCUT SCH ×3 (06:16→21:45)
[2020-08-28] MEDS: Gabapentin 300 MG Cap PO SCH ×3 (08:37→21:42)
[2020-08-28] MEDS: Aspirin 325 MG Tab PO SCH (08:37)
[2020-08-28] MEDS: carBAMazepine 200 MG Tab PO SCH ×3 (08:37→21:43)
[2020-08-28] MEDS: amLODIPine 5 MG Tab PO SCH (08:37)
[2020-08-28] MEDS: Atenolol 50 MG Tab PO SCH (08:40)
[2020-08-28] MEDS: Formoterol/Mometasone 100-5 MCG 8.8 GM Inhaler IH SCH ×2 (08:40→21:42)
[2020-08-28] MEDS: Furosemide 20 MG Tab PO SCH (08:40)
[2020-08-28] MEDS: traMADol 50 MG Tab PO PRN (13:48)
[2020-08-28] MEDS: Latanoprost 0.005% Ophth Soln 2.5 ML Bottle EYEBOTH SCH (21:39)
[2020-08-29] MEDS: TROSPIUM CHLORIDE 20 MG PO SCH (06:01)
[2020-08-29] MEDS: Acetaminophen 500 MG Tab PO SCH ×3 (06:02→21:05)
[2020-08-29] MEDS: Omeprazole 20 MG Cap.CR PO SCH (06:02)
[2020-08-29] MEDS: Heparin Sodium 5,000 Units/ML Vial SUBCUT SCH ×2 (06:03→21:04)
[2020-08-29 06:33] LABS: ANION GAP 7.6 mEq/L (7-13)
[2020-08-29 06:38] LABS: PTT,PARTIAL THROMBOPLSTIN TIME 24.8 SEC (22.0-34.0)
[2020-08-29] MEDS: carBAMazepine 200 MG Tab PO SCH ×3 (09:15→21:04)
[2020-08-29] MEDS: Gabapentin 300 MG Cap PO SCH ×3 (09:15→21:04)
[2020-08-29] MEDS: amLODIPine 5 MG Tab PO SCH (09:16)
[2020-08-29] MEDS: Furosemide 20 MG Tab PO SCH (09:16)
[2020-08-29] MEDS: Aspirin 325 MG Tab PO SCH (09:16)
[2020-08-29] MEDS: Atenolol 50 MG Tab PO SCH (09:17)
[2020-08-29] MEDS: Formoterol/Mometasone 100-5 MCG 8.8 GM Inhaler IH SCH ×2 (09:18→21:06)
[2020-08-29] MEDS: traMADol 50 MG Tab PO PRN (09:59)
[2020-08-29] MEDS: Latanoprost 0.005% Ophth Soln 2.5 ML Bottle EYEBOTH SCH (21:07)
[2020-08-30] MEDS: Acetaminophen 500 MG Tab PO SCH ×3 (05:56→21:28)
[2020-08-30] MEDS: Omeprazole 20 MG Cap.CR PO SCH (05:56)
[2020-08-30] MEDS: TROSPIUM CHLORIDE 20 MG PO SCH (05:57)
[2020-08-30] MEDS: traMADol 50 MG Tab PO PRN (06:46)
[2020-08-30] MEDS: Gabapentin 300 MG Cap PO SCH ×3 (09:42→21:28)
[2020-08-30] MEDS: Ascorbic Acid 500 MG Tab PO SCH (09:43)
[2020-08-30] MEDS: Furosemide 20 MG Tab PO SCH (09:43)
[2020-08-30] MEDS: Aspirin 325 MG Tab PO SCH (09:43)
[2020-08-30] MEDS: Atenolol 50 MG Tab PO SCH (09:44)
[2020-08-30] MEDS: carBAMazepine 200 MG Tab PO SCH ×3 (09:44→21:28)
[2020-08-30] MEDS: amLODIPine 5 MG Tab PO SCH (09:45)
[2020-08-30] MEDS: Folic Acid 1 MG Tab PO SCH (09:45)
[2020-08-30] MEDS: Ferrous Sulfate 325 MG Tab PO SCH ×2 (09:45→17:23)
[2020-08-30] MEDS: Heparin Sodium 5,000 Units/ML Vial SUBCUT SCH ×2 (09:47→21:30)
[2020-08-30] MEDS: Formoterol/Mometasone 100-5 MCG 8.8 GM Inhaler IH SCH ×2 (09:50→21:33)
[2020-08-30] MEDS: Latanoprost 0.005% Ophth Soln 2.5 ML Bottle EYEBOTH SCH (21:32)
[2020-08-31] MEDS: Omeprazole 20 MG Cap.CR PO SCH (05:28)
[2020-08-31] MEDS: TROSPIUM CHLORIDE 20 MG PO SCH (05:30)
[2020-08-31] MEDS: Acetaminophen 500 MG Tab PO SCH ×3 (05:30→21:11)
[2020-08-31] MEDS: Ascorbic Acid 500 MG Tab PO SCH (08:49)
[2020-08-31] MEDS: Aspirin 325 MG Tab PO SCH (08:50)
[2020-08-31] MEDS: Folic Acid 1 MG Tab PO SCH (08:50)
[2020-08-31] MEDS: Ferrous Sulfate 325 MG Tab PO SCH ×2 (08:50→16:59)
[2020-08-31] MEDS: carBAMazepine 200 MG Tab PO SCH ×3 (08:50→20:14)
[2020-08-31] MEDS: Furosemide 20 MG Tab PO SCH (08:51)
[2020-08-31] MEDS: Gabapentin 300 MG Cap PO SCH ×3 (08:51→20:14)
[2020-08-31] MEDS: Atenolol 50 MG Tab PO SCH (08:52)
[2020-08-31] MEDS: amLODIPine 5 MG Tab PO SCH (08:52)
[2020-08-31] MEDS: traMADol 50 MG Tab PO PRN (08:53)
[2020-08-31] MEDS: Heparin Sodium 5,000 Units/ML Vial SUBCUT SCH ×2 (08:54→20:20)
[2020-08-31] MEDS: Formoterol/Mometasone 100-5 MCG 8.8 GM Inhaler IH SCH ×2 (08:55→20:15)
[2020-08-31] MEDS: Latanoprost 0.005% Ophth Soln 2.5 ML Bottle EYEBOTH SCH (20:14)
[2020-09-01] MEDS: Omeprazole 20 MG Cap.CR PO SCH (06:01)
[2020-09-01] MEDS: Acetaminophen 500 MG Tab PO SCH ×3 (06:01→21:41)
[2020-09-01] MEDS: TROSPIUM CHLORIDE 20 MG PO SCH (06:03)
--- NOTE | 2020-09-01 08:17 | PCM.SN.2 ---
- Free Text/Narrative Note: START OF DOCTOR PATRICIA PROGRESS NOTE Subjective: The patient endorses no complaints at this time. She denies pain of her left ankle. She denies fever, rigors, nausea, vomiting, cough, wheeze, abdominal pain, chest pain, dyspnea. She states that her her pain is well controlled. She is eating well and having normal bowel movements. I explained to the patient her current medical condition and plan of care and I have answered all her questions Objective: General: -Alert -No acute distress -No dyspnea -No tachypnea -Obese Heart: -Regular rate -Regular rhythm -No murmurs -No gallops -No rubs Lungs: -No wheeze -No rhonchi -No rales -Distant breath sounds bilaterally Abdomen: -Normal bowel sounds in all four quadrants -No rebound -No guarding -No tenderness Extremities: -2/4 pulse in bilateral upper extremities and right lower extremity. Left lower extremity is in a cast -No clubbing -No cyanosis -No edema Additional Details / Additional Findings / Exceptions / Miscellaneous: Pertinent Laboratory Results / Pertinent Radiology Results / Pertinent Diagnostic Results / Pertinent Vital Signs: Vital signs stable Assessment / Plan: Status post left bimalleolar fracture with subsequent ORIF. As needed analgesia. Continue physical therapy and Occupational Therapy Iron deficiency anemia/macrocytic anemia. Macrocytosis may be attributable to folate deficiency. Will monitor hemoglobin level intermittently. Fecal occult blood negative. Ferrous sulfate 3 5 5 mg p.o. twice daily plus vitamin C 500 mg p.o. daily plus folic acid 1 mg p.o. daily History of trigeminal neuralgia. Carbamazepine 200 mg p.o. 3 times daily Folate deficiency. Folic acid 1 mg p.o. daily Hypertension. Norvasc 10 mg p.o. daily plus atenolol 50 mg p.o. daily plus Lasix 20 mg p.o. daily Glaucoma. Latanoprost 0.005% 1 drop in both eyes nightly GERD. Prilosec 20 mg p.o. daily COPD/pulmonary fibrosis/reactive lung disease, O2 dependent 2 L. Dulera: 100/5 mc puff twice daily Diastolic CHF. Lasix 20 mg p.o. daily plus atenolol 50 mg p.o. daily Obstructive sleep apnea. The patient does not use CPAP/BiPAP Overactive bladder. Sanctura 20 mg p.o. daily Neuropathy. Gabapentin 600 mg p.o. 3 times daily Insomnia History of vitamin B12 deficiency History of right ureteral stricture. Patient Sasha that she has ureteral stent placed every 3 months. Outpatient follow-up with urology upon discharge History of endometrial cancer, status post hysterectomy. The patient Sasha that she is in remission and no longer is being monitored for this medical condition by a doctor Osteoarthritis Chronic pain Osteopenia Degenerative disc disease Obesity. Patient becomes regardless to medication DVT prophylaxis. Heparin 5000 units subcutaneously every 12 hours Disposition: The patient will be a candidate for discharge once she meets goals with physical therapy and Occupational Therapy END OF DOCTOR EMAMIS PROGRESS NOTE
[2020-09-01] MEDS: Atenolol 50 MG Tab PO SCH (08:46)
[2020-09-01] MEDS: Ascorbic Acid 500 MG Tab PO SCH (08:46)
[2020-09-01] MEDS: Heparin Sodium 5,000 Units/ML Vial SUBCUT SCH ×2 (08:46→20:31)
[2020-09-01] MEDS: Furosemide 20 MG Tab PO SCH (08:47)
[2020-09-01] MEDS: carBAMazepine 200 MG Tab PO SCH ×3 (08:47→20:30)
[2020-09-01] MEDS: Gabapentin 300 MG Cap PO SCH ×3 (08:47→20:31)
[2020-09-01] MEDS: Folic Acid 1 MG Tab PO SCH (08:47)
[2020-09-01] MEDS: Aspirin 325 MG Tab PO SCH (08:48)
[2020-09-01] MEDS: Ferrous Sulfate 325 MG Tab PO SCH ×2 (08:48→17:44)
[2020-09-01] MEDS: amLODIPine 5 MG Tab PO SCH (08:48)
[2020-09-01] MEDS: Formoterol/Mometasone 100-5 MCG 8.8 GM Inhaler IH SCH ×2 (08:50→20:32)
[2020-09-01] MEDS: traMADol 50 MG Tab PO PRN ×2 (16:18→22:54)
[2020-09-01] MEDS: Latanoprost 0.005% Ophth Soln 2.5 ML Bottle EYEBOTH SCH (20:34)
[2020-09-02] MEDS: Omeprazole 20 MG Cap.CR PO SCH (06:28)
[2020-09-02] MEDS: Acetaminophen 500 MG Tab PO SCH ×3 (06:29→21:15)
[2020-09-02] MEDS: TROSPIUM CHLORIDE 20 MG PO SCH (06:30)
[2020-09-02] MEDS: amLODIPine 5 MG Tab PO SCH (09:01)
[2020-09-02] MEDS: Folic Acid 1 MG Tab PO SCH (09:01)
[2020-09-02] MEDS: carBAMazepine 200 MG Tab PO SCH ×3 (09:01→21:15)
[2020-09-02] MEDS: Furosemide 20 MG Tab PO SCH (09:02)
[2020-09-02] MEDS: traMADol 50 MG Tab PO PRN ×2 (09:02→21:16)
[2020-09-02] MEDS: Aspirin 325 MG Tab PO SCH (09:03)
[2020-09-02] MEDS: Ferrous Sulfate 325 MG Tab PO SCH ×2 (09:03→17:23)
[2020-09-02] MEDS: Gabapentin 300 MG Cap PO SCH ×3 (09:03→21:15)
[2020-09-02] MEDS: Atenolol 50 MG Tab PO SCH (09:03)
[2020-09-02] MEDS: Ascorbic Acid 500 MG Tab PO SCH (09:03)
[2020-09-02] MEDS: Heparin Sodium 5,000 Units/ML Vial SUBCUT SCH ×2 (09:04→21:19)
[2020-09-02] MEDS: Formoterol/Mometasone 100-5 MCG 8.8 GM Inhaler IH SCH ×2 (09:10→21:21)
[2020-09-02] MEDS: Latanoprost 0.005% Ophth Soln 2.5 ML Bottle EYEBOTH SCH (21:21)
[2020-09-03] MEDS: Omeprazole 20 MG Cap.CR PO SCH (05:44)
[2020-09-03] MEDS: Acetaminophen 500 MG Tab PO SCH ×3 (05:44→22:32)
[2020-09-03] MEDS: TROSPIUM CHLORIDE 20 MG PO SCH (05:45)
[2020-09-03] MEDS: traMADol 50 MG Tab PO PRN (09:31)
[2020-09-03] MEDS: amLODIPine 5 MG Tab PO SCH (09:31)
[2020-09-03] MEDS: Ferrous Sulfate 325 MG Tab PO SCH ×2 (09:32→18:02)
[2020-09-03] MEDS: Gabapentin 300 MG Cap PO SCH ×3 (09:32→22:31)
[2020-09-03] MEDS: Folic Acid 1 MG Tab PO SCH (09:32)
[2020-09-03] MEDS: Atenolol 50 MG Tab PO SCH (09:32)
[2020-09-03] MEDS: carBAMazepine 200 MG Tab PO SCH ×3 (09:32→22:31)
[2020-09-03] MEDS: Furosemide 20 MG Tab PO SCH (09:32)
[2020-09-03] MEDS: Ascorbic Acid 500 MG Tab PO SCH (09:32)
[2020-09-03] MEDS: Aspirin 325 MG Tab PO SCH (09:33)
[2020-09-03] MEDS: Heparin Sodium 5,000 Units/ML Vial SUBCUT SCH ×2 (09:33→22:37)
[2020-09-03] MEDS: Formoterol/Mometasone 100-5 MCG 8.8 GM Inhaler IH SCH ×2 (09:36→22:35)
[2020-09-03] MEDS: Sulfamethoxazole/Trimethoprim 800-160 MG Tab PO SCH (15:59)
[2020-09-03] MEDS: Latanoprost 0.005% Ophth Soln 2.5 ML Bottle EYEBOTH SCH (22:36)
[2020-09-04] MEDS: Omeprazole 20 MG Cap.CR PO SCH (06:16)
[2020-09-04] MEDS: Acetaminophen 500 MG Tab PO SCH ×3 (06:16→21:02)
[2020-09-04] MEDS: TROSPIUM CHLORIDE 20 MG PO SCH (06:19)
[2020-09-04] MEDS: Folic Acid 1 MG Tab PO SCH (08:41)
[2020-09-04] MEDS: Ascorbic Acid 500 MG Tab PO SCH (08:41)
[2020-09-04] MEDS: carBAMazepine 200 MG Tab PO SCH ×3 (08:41→20:48)
[2020-09-04] MEDS: Sulfamethoxazole/Trimethoprim 800-160 MG Tab PO SCH ×2 (08:41→20:48)
[2020-09-04] MEDS: Gabapentin 300 MG Cap PO SCH ×3 (08:41→20:48)
[2020-09-04] MEDS: Atenolol 50 MG Tab PO SCH (08:41)
[2020-09-04] MEDS: Ferrous Sulfate 325 MG Tab PO SCH ×2 (08:41→18:32)
[2020-09-04] MEDS: Aspirin 325 MG Tab PO SCH (08:41)
[2020-09-04] MEDS: amLODIPine 5 MG Tab PO SCH (08:42)
[2020-09-04] MEDS: Furosemide 20 MG Tab PO SCH (08:42)
[2020-09-04] MEDS: Heparin Sodium 5,000 Units/ML Vial SUBCUT SCH ×2 (08:44→20:47)
[2020-09-04] MEDS: Formoterol/Mometasone 100-5 MCG 8.8 GM Inhaler IH SCH ×3 (10:41→21:04)
[2020-09-04] MEDS: Ondansetron 4 MG Tab.DIS PO PRN ×2 (17:51→21:11)
[2020-09-04] MEDS: Latanoprost 0.005% Ophth Soln 2.5 ML Bottle EYEBOTH SCH (21:03)
[2020-09-04] MEDS ORDERED: Ondansetron 4 MG Tab.DIS PO PRN (21:29)
[2020-09-05] MEDS: Acetaminophen 500 MG Tab PO SCH ×3 (06:09→21:05)
[2020-09-05] MEDS: Omeprazole 20 MG Cap.CR PO SCH (06:09)
[2020-09-05] MEDS: TROSPIUM CHLORIDE 20 MG PO SCH (06:09)
[2020-09-05] MEDS: Ferrous Sulfate 325 MG Tab PO SCH ×2 (09:17→17:44)
[2020-09-05] MEDS: Ascorbic Acid 500 MG Tab PO SCH (09:17)
[2020-09-05] MEDS: Gabapentin 300 MG Cap PO SCH ×3 (09:17→21:05)
[2020-09-05] MEDS: Folic Acid 1 MG Tab PO SCH (09:17)
[2020-09-05] MEDS: carBAMazepine 200 MG Tab PO SCH ×3 (09:17→21:04)
[2020-09-05] MEDS: Furosemide 20 MG Tab PO SCH (09:17)
[2020-09-05] MEDS: amLODIPine 5 MG Tab PO SCH (09:19)
[2020-09-05] MEDS: Atenolol 50 MG Tab PO SCH (09:19)
[2020-09-05] MEDS: Heparin Sodium 5,000 Units/ML Vial SUBCUT SCH ×2 (09:19→21:05)
[2020-09-05] MEDS: Aspirin 325 MG Tab PO SCH (09:20)
[2020-09-05] MEDS: Sulfamethoxazole/Trimethoprim 800-160 MG Tab PO SCH (10:33)
[2020-09-05] MEDS: Formoterol/Mometasone 100-5 MCG 8.8 GM Inhaler IH SCH ×2 (12:40→21:07)
[2020-09-05] MEDS: Latanoprost 0.005% Ophth Soln 2.5 ML Bottle EYEBOTH SCH (21:06)
[2020-09-06] MEDS: Omeprazole 20 MG Cap.CR PO SCH (05:30)
[2020-09-06] MEDS: Acetaminophen 500 MG Tab PO SCH ×3 (05:30→22:13)
[2020-09-06] MEDS: TROSPIUM CHLORIDE 20 MG PO SCH (05:33)
[2020-09-06] MEDS: Gabapentin 300 MG Cap PO SCH ×3 (09:51→22:12)
[2020-09-06] MEDS: Ferrous Sulfate 325 MG Tab PO SCH ×2 (09:51→18:22)
[2020-09-06] MEDS: carBAMazepine 200 MG Tab PO SCH ×3 (09:51→22:13)
[2020-09-06] MEDS: Folic Acid 1 MG Tab PO SCH (09:51)
[2020-09-06] MEDS: Furosemide 20 MG Tab PO SCH (09:51)
[2020-09-06] MEDS: Aspirin 325 MG Tab PO SCH (09:52)
[2020-09-06] MEDS: amLODIPine 5 MG Tab PO SCH (09:52)
[2020-09-06] MEDS: Ascorbic Acid 500 MG Tab PO SCH (09:53)
[2020-09-06] MEDS: Atenolol 50 MG Tab PO SCH (09:56)
--- NOTE | 2020-09-06 11:07 | PCM.PN ---
- General Info Date of Service: 09/06/20 Subjective Update: Diarrhea has resolved. No urinary complaints. - Patient Data Vitals - Most Recent: Last Vital Signs Temp 97.6 F 09/06/20 08:06 Pulse 73 09/06/20 09:56 Resp 20 09/06/20 08:06 BP 98/82 09/06/20 09:56 Pulse Ox 98 09/06/20 08:06 Weight - Most Recent: 201 lb 12.8 oz I&O - Last 24 Hours: Intake & Output 09/05/20 09/06/20 09/06/20 22:59 06:59 14:59 Intake Total 75 50 Balance 75 50 Med Orders - Current: Current Medications Acetaminophen (Acetaminophen 325 Mg Tab) 650 mg PO Q4H PRN PRN Reason: Pain (Mild 1-3)/fever Acetaminophen (Acetaminophen 500 Mg Tab) 500 mg PO Q8HR [facility] Last Admin: 09/06/20 05:30 Dose: 500 mg Documented by: Albuterol (Albuterol 0.083% 2.5 Mg/3 Ml Neb Soln) 2.5 mg INH Q4HR PRN PRN Reason: Shortness of Breath Amlodipine Besylate (Amlodipine 5 Mg Tab) 10 mg PO DAILY [facility] Last Admin: 09/06/20 09:52 Dose: 10 mg Documented by: Ascorbic Acid (Ascorbic Acid 500 Mg Tab) 500 mg PO DAILY [facility] Last Admin: 09/06/20 09:53 Dose: 500 mg Documented by: Aspirin (Aspirin 325 Mg Tab) 325 mg PO DAILY [facility] Last Admin: 09/06/20 09:52 Dose: 325 mg Documented by: Atenolol (Atenolol 50 Mg Tab) 50 mg PO DAILY [facility] Last Admin: 09/06/20 09:56 Dose: 50 mg Documented by: Carbamazepine (Carbamazepine 200 Mg Tab) 200 mg PO TID [facility] Last Admin: 09/06/20 09:51 Dose: 200 mg Documented by: Docusate Sodium (Docusate Sodium 100 Mg Cap) 100 mg PO BID PRN PRN Reason: Constipation Last Admin: 08/26/20 21:19 Dose: 100 mg Documented by: Ferrous Sulfate (Ferrous Sulfate 325 Mg Tab) 325 mg PO BIDMEALS [facility] Last Admin: 09/06/20 09:51 Dose: 325 mg Documented by: Folic Acid (Folic Acid 1 Mg Tab) 1 mg PO DAILY [facility] Last Admin: 09/06/20 09:51 Dose: 1 mg Documented by: Furosemide (Furosemide 20 Mg Tab) 20 mg PO DAILY [facility] Last Admin: 09/06/20 09:51 Dose: 20 mg Documented by: Gabapentin (Gabapentin 300 Mg Cap) 600 mg PO TID [facility] Last Admin: 09/06/20 09:51 Dose: 600 mg Documented by: Heparin Sodium (Porcine) (Heparin Sodium 5,000 Units/Ml Vial) 5,000 units SUBCUT Q12HR [facility] Last Admin: 09/05/20 21:05 Dose: 5,000 units Documented by: Latanoprost (Latanoprost 0.005% Ophth Soln 2.5 Ml Bottle) 0 ml EYEBOTH BEDTIME [facility] Last Admin: 09/05/20 21:06 Dose: 1 drop Documented by: Mometasone Furoate/Formoterol Fumar (Formoterol/Mometasone 100-5 Mcg 8.8 Gm Inhaler) 1 puff IH BID [facility] Last Admin: 09/05/20 21:07 Dose: 1 puff Documented by: Trospium Chloride [ Sanctura] 20 Mg Tab *Own Med* 0 mg PO ACBREAKFAST [facility] Last Admin: 09/06/20 05:33 Dose: Not Given Documented by: Florastor Probiotic (Cap) 0 each PO BID [facility] Omeprazole (Omeprazole 20 Mg Cap.Cr) 20 mg PO ACBREAKFAST [facility] Last Admin: 09/06/20 05:30 Dose: 20 mg Documented by: Ondansetron HCl (Ondansetron 4 Mg Tab.Dis) 4 mg PO Q4H PRN PRN Reason: Nausea/Vomiting Oxycodone HCl (Oxycodone 5 Mg Tab) 5 mg PO Q6HR PRN PRN Reason: Pain (severe 7-10) Last Admin: 08/27/20 02:56 Dose: 5 mg Documented by: Tramadol HCl (Tramadol 50 Mg Tab) 50 mg PO Q6H PRN PRN Reason: Pain (moderate 4-6) Last Admin: 09/03/20 09:31 Dose: 50 mg Documented by: Discontinued Medications Amoxicillin/Clavulanate Potassium (Amoxicillin/Clav 875-125 Mg Tab *Own Med*) 1 tab PO Q12HR [facility] Stop: 08/27/20 09:01 Last Admin: 08/27/20 08:24 Dose: 1 tab Documented by: Heparin Sodium (Porcine) (Heparin Sodium 5,000 Units/Ml Vial) 5,000 units SUBCUT Q8HR [facility] Last Admin: 08/29/20 06:03 Dose: 5,000 units Documented by: Naproxen (Naproxen 250 Mg Tab) 250 mg PO BIDMEALS [facility] Non-Formulary Medication (Trospium Chloride [Trospium Chloride]) 20 mg PO BIDMEALS [facility] Trospium Chloride [ Sanctura] 20 Mg Tab *Own Med* 20 mg PO DAILY [facility] Last Admin: 08/27/20 15:07 Dose: Not Given Documented by: Trospium Chloride [ Sanctura] 20 Mg Tab *Own Med* 20 mg PO ACBREAKFAST [facility] Last Admin: 08/30/20 05:57 Dose: 20 mg Documented by: Trospium Chloride [ Sanctura] 20 Mg Tab *Own Med* 20 mg PO ONETIME ONE Stop: 08/27/20 11:01 Last Admin: 08/27/20 11:00 Dose: Not Given Documented by: Ondansetron HCl (Ondansetron 4 Mg Tab.Dis) 4 mg PO Q6H PRN PRN Reason: nausea, able to take PO Last Admin: 09/04/20 21:11 Dose: 4 mg Documented by: Trimethoprim/Sulfamethoxazole (Sulfamethoxazole/Trimethoprim 800-160 Mg Tab) 1 tab PO BID [facility] Last Admin: 09/05/20 10:33 Dose: Not Given Documented by: - Exam Quality Assessment: Supplemental Oxygen General: Alert, Oriented HEENT: Pupils Equal, Pupils Reactive Neck: Supple Lungs: Clear to Auscultation (anteriorly) Cardiovascular: Regular Rate, Regular Rhythm, No Murmurs GI/Abdominal Exam: Normal Bowel Sounds, Soft, Non-Tender Extremities: No Pedal Edema, Other (LLE in cast, R big toe bruising but non tender) Skin: Warm, Dry, Intact Neurological: No New Focal Deficit Psy/Mental Status: Alert, Normal Affect, Normal Mood - Patient Data Result Diagrams: 08/30/20 06:15 08/29/20 06:05 Sepsis Event Note - Evaluation Sepsis Screening Result: No Definite Risk - Focused Exam Vital Signs: Vital Signs Temp Pulse Pulse Resp BP BP Pulse Ox 09/06/20 09:56 73 98/82 09/06/20 09:52 09/06/20 08:06 97.6 F 73 20 98 - Problem List Review Problem List Initiated/Reviewed/Updated: Yes - My Orders Last 24 Hours: My Active Orders 09/06/20 10:00 Non-Formulary Medication [NF Drug] 0 each PO BID - Plan Plan:: #s/p left bimalleolar fracture with subsequent ORIF - treatment plan per PT - ortho f/up #diarrhea - resolved off bactrim and on probiotic - resolved before it could be tested for cdiff #[place] and folate deficiency - Ferrous sulfate 3 5 5 mg p.o. twice daily plus vitamin C 500 mg p.o. daily plus folic acid 1 mg p.o. daily #hx trigeminal neuralgia. Carbamazepine 200 mg p.o. 3 times daily #Hypertension. Norvasc 10 mg p.o. daily plus atenolol 50 mg p.o. daily plus Lasix 20 mg p.o. daily #Glaucoma. Latanoprost 0.005% 1 drop in both eyes nightly #GERD. Prilosec 20 mg p.o. daily #COPD/pulmonary fibrosis/reactive lung disease, O2 dependent 2 L. Dulera: 100/5 mc puff twice daily #chronic diastolic CHF - Lasix 20 mg p.o. daily plus atenolol 50 mg p.o. daily #Obstructive sleep apnea. The patient does not use CPAP/BiPAP #Overactive bladder. Sanctura 20 mg p.o. daily - family is bringing it in #Neuropathy. Gabapentin 600 mg p.o. 3 times daily #hx right ureteral stricture. Patient Sasha that she has ureteral stent placed every 3 months. Outpatient follow-up with urology upon discharge DVT prophylaxis. Heparin 5000 units subcutaneously every 12 hours
[2020-09-06] MEDS: traMADol 50 MG Tab PO PRN (11:19)
[2020-09-06] MEDS: Florastor Probiotic Cap PO SCH ×2 (11:21→22:12)
[2020-09-06] MEDS: Formoterol/Mometasone 100-5 MCG 8.8 GM Inhaler IH SCH ×2 (11:21→22:12)
[2020-09-06] MEDS: Heparin Sodium 5,000 Units/ML Vial SUBCUT SCH ×2 (11:22→22:16)
[2020-09-06] MEDS: Latanoprost 0.005% Ophth Soln 2.5 ML Bottle EYEBOTH SCH (22:13)
[2020-09-07] MEDS: Omeprazole 20 MG Cap.CR PO SCH (05:27)
[2020-09-07] MEDS: Acetaminophen 500 MG Tab PO SCH ×4 (05:27→22:03)
[2020-09-07] MEDS: TROSPIUM 20 MG PO SCH (05:28)
[2020-09-07] MEDS ORDERED: TROSPIUM 20 MG PO SCH (06:00)
[2020-09-07] MEDS: traMADol 50 MG Tab PO PRN ×3 (06:27→22:05)
[2020-09-07] MEDS: Gabapentin 300 MG Cap PO SCH ×4 (08:47→22:03)
[2020-09-07] MEDS: Folic Acid 1 MG Tab PO SCH (08:47)
[2020-09-07] MEDS: amLODIPine 5 MG Tab PO SCH (08:48)
[2020-09-07] MEDS: Ascorbic Acid 500 MG Tab PO SCH (08:48)
[2020-09-07] MEDS: carBAMazepine 200 MG Tab PO SCH ×4 (08:48→22:03)
[2020-09-07] MEDS: Aspirin 325 MG Tab PO SCH (08:48)
[2020-09-07] MEDS: Ferrous Sulfate 325 MG Tab PO SCH ×2 (08:48→18:41)
[2020-09-07] MEDS: Atenolol 50 MG Tab PO SCH (08:49)
[2020-09-07] MEDS: Florastor Probiotic Cap PO SCH ×2 (09:11→22:09)
[2020-09-07] MEDS: Furosemide 20 MG Tab PO SCH (09:11)
[2020-09-07] MEDS: Formoterol/Mometasone 100-5 MCG 8.8 GM Inhaler IH SCH ×2 (09:11→22:07)
[2020-09-07] MEDS: Heparin Sodium 5,000 Units/ML Vial SUBCUT SCH ×2 (09:13→22:07)
[2020-09-07] MEDS: Latanoprost 0.005% Ophth Soln 2.5 ML Bottle EYEBOTH SCH (22:11)
[2020-09-08] MEDS: Acetaminophen 500 MG Tab PO SCH ×3 (06:10→21:45)
[2020-09-08] MEDS: Omeprazole 20 MG Cap.CR PO SCH (06:11)
[2020-09-08] MEDS: Folic Acid 1 MG Tab PO SCH (08:36)
[2020-09-08] MEDS: Ferrous Sulfate 325 MG Tab PO SCH ×2 (08:36→17:45)
[2020-09-08] MEDS: Furosemide 20 MG Tab PO SCH (08:36)
[2020-09-08] MEDS: carBAMazepine 200 MG Tab PO SCH ×3 (08:36→21:45)
[2020-09-08] MEDS: Gabapentin 300 MG Cap PO SCH ×3 (08:36→21:45)
[2020-09-08] MEDS: Ascorbic Acid 500 MG Tab PO SCH (08:36)
[2020-09-08] MEDS: Heparin Sodium 5,000 Units/ML Vial SUBCUT SCH ×2 (08:39→21:47)
[2020-09-08] MEDS: Formoterol/Mometasone 100-5 MCG 8.8 GM Inhaler IH SCH ×2 (08:39→21:48)
[2020-09-08] MEDS: amLODIPine 5 MG Tab PO SCH (08:41)
[2020-09-08] MEDS: Atenolol 50 MG Tab PO SCH (08:41)
[2020-09-08] MEDS: Florastor Probiotic Cap PO SCH ×2 (08:41→21:46)
[2020-09-08] MEDS: Aspirin 325 MG Tab PO SCH (08:42)
[2020-09-08] MEDS: traMADol 50 MG Tab PO PRN (08:55)
[2020-09-08] MEDS: TROSPIUM 20 MG PO SCH (14:49)
[2020-09-08] MEDS: Latanoprost 0.005% Ophth Soln 2.5 ML Bottle EYEBOTH SCH (21:49)
[2020-09-09] MEDS: Omeprazole 20 MG Cap.CR PO SCH (06:25)
[2020-09-09] MEDS: TROSPIUM 20 MG PO SCH (06:26)
[2020-09-09] MEDS: Acetaminophen 500 MG Tab PO SCH ×3 (06:26→21:03)
[2020-09-09] MEDS: Atenolol 50 MG Tab PO SCH (10:16)
[2020-09-09] MEDS: Gabapentin 300 MG Cap PO SCH ×3 (10:16→21:03)
[2020-09-09] MEDS: Aspirin 325 MG Tab PO SCH (10:16)
[2020-09-09] MEDS: Ferrous Sulfate 325 MG Tab PO SCH ×2 (10:16→17:25)
[2020-09-09] MEDS: carBAMazepine 200 MG Tab PO SCH ×3 (10:16→20:45)
[2020-09-09] MEDS: amLODIPine 5 MG Tab PO SCH (10:16)
[2020-09-09] MEDS: Ascorbic Acid 500 MG Tab PO SCH (10:16)
[2020-09-09] MEDS: Furosemide 20 MG Tab PO SCH (10:16)
[2020-09-09] MEDS: Folic Acid 1 MG Tab PO SCH (10:16)
[2020-09-09] MEDS: Heparin Sodium 5,000 Units/ML Vial SUBCUT SCH ×2 (10:17→20:46)
[2020-09-09] MEDS: Formoterol/Mometasone 100-5 MCG 8.8 GM Inhaler IH SCH ×2 (14:01→21:00)
[2020-09-09] MEDS: Florastor Probiotic Cap PO SCH ×2 (14:01→21:04)
[2020-09-09] MEDS: Latanoprost 0.005% Ophth Soln 2.5 ML Bottle EYEBOTH SCH (21:00)
[2020-09-10] MEDS: TROSPIUM 20 MG PO SCH (06:23)
[2020-09-10] MEDS: Omeprazole 20 MG Cap.CR PO SCH (06:24)
[2020-09-10] MEDS: Acetaminophen 500 MG Tab PO SCH ×3 (06:24→21:30)
[2020-09-10] MEDS: amLODIPine 5 MG Tab PO SCH (08:00)
[2020-09-10] MEDS: Gabapentin 300 MG Cap PO SCH ×3 (08:00→21:30)
[2020-09-10] MEDS: Furosemide 20 MG Tab PO SCH (08:00)
[2020-09-10] MEDS: Aspirin 325 MG Tab PO SCH (08:00)
[2020-09-10] MEDS: Atenolol 50 MG Tab PO SCH (08:01)
[2020-09-10] MEDS: Folic Acid 1 MG Tab PO SCH (08:01)
[2020-09-10] MEDS: Ascorbic Acid 500 MG Tab PO SCH (08:02)
[2020-09-10] MEDS: carBAMazepine 200 MG Tab PO SCH ×3 (08:03→21:30)
[2020-09-10] MEDS: Ferrous Sulfate 325 MG Tab PO SCH ×2 (08:03→19:24)
[2020-09-10] MEDS: Heparin Sodium 5,000 Units/ML Vial SUBCUT SCH ×2 (08:04→21:31)
[2020-09-10] MEDS: Formoterol/Mometasone 100-5 MCG 8.8 GM Inhaler IH SCH ×2 (08:05→21:31)
[2020-09-10] MEDS: Florastor Probiotic Cap PO SCH ×2 (08:30→23:52)
[2020-09-10] MEDS: Latanoprost 0.005% Ophth Soln 2.5 ML Bottle EYEBOTH SCH (23:53)
[2020-09-11] MEDS: Acetaminophen 500 MG Tab PO SCH ×3 (06:42→22:33)
[2020-09-11] MEDS: TROSPIUM 20 MG PO SCH (06:43)
[2020-09-11] MEDS: Omeprazole 20 MG Cap.CR PO SCH (06:43)
[2020-09-11] MEDS: Ferrous Sulfate 325 MG Tab PO SCH ×2 (08:06→18:29)
[2020-09-11] MEDS: Folic Acid 1 MG Tab PO SCH (08:07)
[2020-09-11] MEDS: Ascorbic Acid 500 MG Tab PO SCH (08:07)
[2020-09-11] MEDS: Furosemide 20 MG Tab PO SCH (08:07)
[2020-09-11] MEDS: carBAMazepine 200 MG Tab PO SCH ×3 (08:07→20:32)
[2020-09-11] MEDS: Aspirin 325 MG Tab PO SCH (08:07)
[2020-09-11] MEDS: amLODIPine 5 MG Tab PO SCH (08:07)
[2020-09-11] MEDS: Heparin Sodium 5,000 Units/ML Vial SUBCUT SCH ×2 (08:08→20:41)
[2020-09-11] MEDS: Atenolol 50 MG Tab PO SCH (08:08)
[2020-09-11] MEDS: Gabapentin 300 MG Cap PO SCH ×3 (08:08→20:32)
[2020-09-11] MEDS: Formoterol/Mometasone 100-5 MCG 8.8 GM Inhaler IH SCH ×2 (08:11→20:33)
[2020-09-11] MEDS: Florastor Probiotic Cap PO SCH ×2 (08:12→20:33)
[2020-09-11] MEDS: traMADol 50 MG Tab PO PRN (20:31)
[2020-09-11] MEDS: Latanoprost 0.005% Ophth Soln 2.5 ML Bottle EYEBOTH SCH (20:33)
[2020-09-12] MEDS: Acetaminophen 500 MG Tab PO SCH ×3 (06:31→21:56)
[2020-09-12] MEDS: Omeprazole 20 MG Cap.CR PO SCH (06:31)
[2020-09-12] MEDS: TROSPIUM 20 MG PO SCH (06:32)
[2020-09-12] MEDS: Aspirin 325 MG Tab PO SCH (08:09)
[2020-09-12] MEDS: Gabapentin 300 MG Cap PO SCH ×3 (08:09→20:13)
[2020-09-12] MEDS: Folic Acid 1 MG Tab PO SCH (08:09)
[2020-09-12] MEDS: carBAMazepine 200 MG Tab PO SCH ×3 (08:09→20:13)
[2020-09-12] MEDS: Furosemide 20 MG Tab PO SCH (08:10)
[2020-09-12] MEDS: Atenolol 50 MG Tab PO SCH (08:10)
[2020-09-12] MEDS: amLODIPine 5 MG Tab PO SCH (08:10)
[2020-09-12] MEDS: Ferrous Sulfate 325 MG Tab PO SCH ×2 (08:10→18:16)
[2020-09-12] MEDS: Ascorbic Acid 500 MG Tab PO SCH (08:10)
[2020-09-12] MEDS: Heparin Sodium 5,000 Units/ML Vial SUBCUT SCH ×2 (08:10→20:14)
[2020-09-12] MEDS: Formoterol/Mometasone 100-5 MCG 8.8 GM Inhaler IH SCH ×2 (08:11→20:12)
[2020-09-12] MEDS: Florastor Probiotic Cap PO SCH ×2 (08:12→20:13)
[2020-09-12] MEDS: Latanoprost 0.005% Ophth Soln 2.5 ML Bottle EYEBOTH SCH (20:12)
[2020-09-13] MEDS: TROSPIUM 20 MG PO SCH (05:47)
[2020-09-13] MEDS: Omeprazole 20 MG Cap.CR PO SCH (05:47)
[2020-09-13] MEDS: Acetaminophen 500 MG Tab PO SCH ×3 (05:47→21:28)
[2020-09-13] MEDS: Ascorbic Acid 500 MG Tab PO SCH (08:40)
[2020-09-13] MEDS: carBAMazepine 200 MG Tab PO SCH ×3 (08:40→21:27)
[2020-09-13] MEDS: Atenolol 50 MG Tab PO SCH (08:40)
[2020-09-13] MEDS: Aspirin 325 MG Tab PO SCH (08:40)
[2020-09-13] MEDS: Ferrous Sulfate 325 MG Tab PO SCH ×2 (08:40→17:30)
[2020-09-13] MEDS: amLODIPine 5 MG Tab PO SCH (08:40)
[2020-09-13] MEDS: Folic Acid 1 MG Tab PO SCH (08:41)
[2020-09-13] MEDS: Florastor Probiotic Cap PO SCH ×2 (08:41→21:27)
[2020-09-13] MEDS: Furosemide 20 MG Tab PO SCH (08:41)
[2020-09-13] MEDS: Gabapentin 300 MG Cap PO SCH ×3 (08:41→21:28)
[2020-09-13] MEDS: Formoterol/Mometasone 100-5 MCG 8.8 GM Inhaler IH SCH ×2 (08:42→21:35)
[2020-09-13] MEDS: Heparin Sodium 5,000 Units/ML Vial SUBCUT SCH ×2 (08:47→21:28)
[2020-09-13] MEDS: Latanoprost 0.005% Ophth Soln 2.5 ML Bottle EYEBOTH SCH (21:30)
[2020-09-14] MEDS: Omeprazole 20 MG Cap.CR PO SCH (06:06)
[2020-09-14] MEDS: Acetaminophen 500 MG Tab PO SCH (06:07)
[2020-09-14] MEDS: TROSPIUM 20 MG PO SCH (06:07)
[2020-09-14] MEDS: Furosemide 20 MG Tab PO SCH (08:18)
[2020-09-14] MEDS: Ascorbic Acid 500 MG Tab PO SCH (08:18)
[2020-09-14] MEDS: Ferrous Sulfate 325 MG Tab PO SCH (08:18)
[2020-09-14] MEDS: Aspirin 325 MG Tab PO SCH (08:18)
[2020-09-14] MEDS: Folic Acid 1 MG Tab PO SCH (08:18)
[2020-09-14] MEDS: Gabapentin 300 MG Cap PO SCH (08:19)
[2020-09-14] MEDS: Heparin Sodium 5,000 Units/ML Vial SUBCUT SCH (08:19)
[2020-09-14] MEDS: Formoterol/Mometasone 100-5 MCG 8.8 GM Inhaler IH SCH (08:19)
[2020-09-14] MEDS: carBAMazepine 200 MG Tab PO SCH (08:19)
[2020-09-14] MEDS: amLODIPine 5 MG Tab PO SCH (08:19)
[2020-09-14] MEDS: Atenolol 50 MG Tab PO SCH (08:20)
[2020-09-14] MEDS: Florastor Probiotic Cap PO SCH (08:29)
--- NOTE | 2020-09-14 08:37 | PCM.DCSUM1 ---
Discharge Summary - Hospital Course Free Text/Narrative:: Patient is a 79-year-old female with a past medical history as listed below presents to the [facility] for acute rehabilitation after receiving treatment for a left ankle fracture. Patient sustained a mechanical fall in the field resulting in a bimalleolar fracture on the left lower extremity. Status post ORIF. Surgery was without complication. Patient requires acute rehabilitation before being sent home. Patient has agreed to these treatment services while admitted. Rehab stay was uncomplicated and pt has now graduated to d/c to home w/ VNS. - Discharge Data Discharge Date: 09/14/20 Discharge Disposition: Home, W Home Health Agency 06 Condition: Good - Referral to Home Health Date of Face to Face Encounter: 09/14/20 Reason for Homebound Status: s/p anlke fracture, impaired mobility Primary Care Physician: Allie Love NP Skilled Need: teaching of home medication regimen, monitoring of wounds and dressing changes / PT for home exercise program to strenght and recondition / OT for safety evaluation and equipment needs - Patient Summary/Data Consults: Consultations 08/25/20 13:24 OT Evaluation and Treatment [CONS] Routine PT Evaluation and Treatment [CONS] Routine - Discharge Plan Prescriptions/Med Rec: traMADol [Ultram] 50 mg PO Q6H PRN #30 tablet PRN Reason: Pain (Moderate 4-6) Home Medications: Home Meds Furosemide 20 mg PO DAILY 06/27/13 [History] Latanoprost 1 drop EYEBOTH BEDTIME 06/27/13 [History] Omeprazole 20 mg PO ACBREAKFAST 12/28/13 [History] Trospium Chloride 20 mg PO DAILY 07/21/17 [History] carBAMazepine [Carbamazepine] 200 mg PO TID 07/26/17 [History] Gabapentin [Neurontin] 600 mg PO TID 01/03/19 [History] atenoloL [Atenolol] 50 mg PO DAILY 01/03/19 [History] Acetaminophen [Pain Relief] 500 mg PO Q8HR 08/25/20 [History] Albuterol [Proventil] 2.5 mg NEB Q4HR PRN 08/25/20 [History] Aspirin 325 mg PO DAILY 08/25/20 [History] Cyanocobalamin (Vitamin B12) [Vitamin B12] 1,000 mcg INJECT ASDIRECTED 08/25/20 [History] Fluticasone/Salmeterol [Advair 100-50] 1 puff INH BID 08/25/20 [History] Ibuprofen 800 mg PO Q8HR PRN 08/25/20 [History] amLODIPine [Norvasc] 10 mg PO DAILY 08/25/20 [History] traMADol [Ultram] 50 mg PO Q6H PRN #30 tablet 09/14/20 [Rx] Patient Handouts: Displaced Medial or Posterior Malleolar Ankle Fracture Treated With ORIF, Ankle Fracture, [id number] Referrals: Allie Love NP [Primary Care Provider] - - Discharge Summary/Plan Comment DC Time >30 min.: No - Patient Data Vitals - Most Recent: Last Vital Signs Temp 96.9 F 09/14/20 07:51 Pulse 77 09/14/20 08:20 Resp 20 09/14/20 07:51 BP 118/56 L 09/14/20 08:20 Pulse Ox 96 09/14/20 07:51 Weight - Most Recent: 201 lb 12.8 oz I&O - Last 24 hours: Intake & Output 09/13/20 09/14/20 09/14/20 22:59 06:59 14:59 Intake Total 400 Balance 400 Med Orders - Current: Current Medications Acetaminophen (Acetaminophen 325 Mg Tab) 650 mg PO Q4H PRN PRN Reason: Pain (Mild 1-3)/fever Acetaminophen (Acetaminophen 500 Mg Tab) 500 mg PO Q8HR [facility] Last Admin: 09/14/20 06:07 Dose: 500 mg Documented by: Albuterol (Albuterol 0.083% 2.5 Mg/3 Ml Neb Soln) 2.5 mg INH Q4HR PRN PRN Reason: Shortness of Breath Amlodipine Besylate (Amlodipine 5 Mg Tab) 10 mg PO DAILY [facility] Last Admin: 09/14/20 08:19 Dose: 10 mg Documented by: Ascorbic Acid (Ascorbic Acid 500 Mg Tab) 500 mg PO DAILY [facility] Last Admin: 09/14/20 08:18 Dose: 500 mg Documented by: Aspirin (Aspirin 325 Mg Tab) 325 mg PO DAILY [facility] Last Admin: 09/14/20 08:18 Dose: 325 mg Documented by: Atenolol (Atenolol 50 Mg Tab) 50 mg PO DAILY [facility] Last Admin: 09/14/20 08:20 Dose: 50 mg Documented by: Carbamazepine (Carbamazepine 200 Mg Tab) 200 mg PO TID [facility] Last Admin: 09/14/20 08:19 Dose: 200 mg Documented by: Docusate Sodium (Docusate Sodium 100 Mg Cap) 100 mg PO BID PRN PRN Reason: Constipation Last Admin: 08/26/20 21:19 Dose: 100 mg Documented by: Ferrous Sulfate (Ferrous Sulfate 325 Mg Tab) 325 mg PO BIDMEALS [facility] Last Admin: 09/14/20 08:18 Dose: 325 mg Documented by: Folic Acid (Folic Acid 1 Mg Tab) 1 mg PO DAILY [facility] Last Admin: 09/14/20 08:18 Dose: 1 mg Documented by: Furosemide (Furosemide 20 Mg Tab) 20 mg PO DAILY [facility] Last Admin: 09/14/20 08:18 Dose: 20 mg Documented by: Gabapentin (Gabapentin 300 Mg Cap) 600 mg PO TID [facility] Last Admin: 09/14/20 08:19 Dose: 600 mg Documented by: Heparin Sodium (Porcine) (Heparin Sodium 5,000 Units/Ml Vial) 5,000 units SUBCUT Q12HR [facility] Last Admin: 09/14/20 08:19 Dose: Not Given Documented by: Latanoprost (Latanoprost 0.005% Ophth Soln 2.5 Ml Bottle) 0 ml EYEBOTH BEDTIME [facility] Last Admin: 09/13/20 21:30 Dose: 1 drop Documented by: Mometasone Furoate/Formoterol Fumar (Formoterol/Mometasone 100-5 Mcg 8.8 Gm Inhaler) 1 puff IH BID [facility] Last Admin: 09/14/20 08:19 Dose: 1 puff Documented by: Florastor Probiotic (Cap) 0 each PO BID [facility] Last Admin: 09/14/20 08:29 Dose: Not Given Documented by: Omeprazole (Omeprazole 20 Mg Cap.Cr) 20 mg PO ACBREAKFAST [facility] Last Admin: 09/14/20 06:06 Dose: 20 mg Documented by: Ondansetron HCl (Ondansetron 4 Mg Tab.Dis) 4 mg PO Q4H PRN PRN Reason: Nausea/Vomiting Oxycodone HCl (Oxycodone 5 Mg Tab) 5 mg PO Q6HR PRN PRN Reason: Pain (severe 7-10) Last Admin: 08/27/20 02:56 Dose: 5 mg Documented by: Patient's Own MedicationTrospium 20 Mg 1 each PO ACBREAKFAST [facility] Last Admin: 09/14/20 06:07 Dose: 1 each Documented by: Tramadol HCl (Tramadol 50 Mg Tab) 50 mg PO Q6H PRN PRN Reason: Pain (moderate 4-6) Last Admin: 09/11/20 20:31 Dose: 50 mg Documented by: Discontinued Medications Amoxicillin/Clavulanate Potassium (Amoxicillin/Clav 875-125 Mg Tab *Own Med*) 1 tab PO Q12HR [facility] Stop: 08/27/20 09:01 Last Admin: 08/27/20 08:24 Dose: 1 tab Documented by: Heparin Sodium (Porcine) (Heparin Sodium 5,000 Units/Ml Vial) 5,000 units SUBCUT Q8HR [facility] Last Admin: 08/29/20 06:03 Dose: 5,000 units Documented by: Naproxen (Naproxen 250 Mg Tab) 250 mg PO BIDMEALS [facility] Non-Formulary Medication (Trospium Chloride [Trospium Chloride]) 20 mg [facility]FORM[facility]LY [facility] Trospium Chloride [ Sanctura] 20 Mg Tab *Own Med* 20 mg PO DAILY [facility] Last Admin: 08/27/20 15:07 Dose: Not Given Documented by: Trospium Chloride [ Sanctura] 20 Mg Tab *Own Med* [facility] Last Admin: 08/30/20 05:57 Dose: 20 mg Documented by: Trospium Chloride [ Sanctura] 20 Mg Tab *Own Med* 20 mg PO ONETIME ONE Stop: 08/27/20 11:01 Last Admin: 08/27/20 11:00 Dose: Not Given Documented by: Trospium Chloride [ Sanctura] 20 Mg Tab *Own Med* [facility] Last Admin: 09/06/20 05:33 Dose: Not Given Documented by: Ondansetron HCl (Ondansetron 4 Mg Tab.Dis) 4 mg PO Q6H PRN PRN Reason: nausea, able to take PO Last Admin: 09/04/20 21:11 Dose: 4 mg Documented by: Patient's Own MedicationTrospium 20 Mg 1 each PO ACBREAKFAST [facility] Trimethoprim/Sulfamethoxazole (Sulfamethoxazole/Trimethoprim 800-160 Mg Tab) 1 tab PO BID [facility] Last Admin: 09/05/20 10:33 Dose: Not Given Documented by: - Exam Quality Assessment: Denies: Supplemental Oxygen General: Reports: Alert, Oriented HEENT: Reports: Pupils Equal Neck: Reports: Supple Lungs: Reports: Clear to Auscultation, Normal Respiratory Effort Cardiovascular: Reports: Regular Rate, Regular Rhythm GI/Abdominal Exam: Normal Bowel Sounds, Soft, Non-Tender, No Distention Back Exam: Reports: Normal Inspection Extremities: Other (LLE in boot) Skin: Reports: Warm, Dry Wound/Incisions: Reports: Healing Well Neurological: Reports: No New Focal Deficit Psy/Mental Status: Reports: Alert, Normal Affect, Normal Mood
== END 2020-09-14 09:10 | disposition home health service (06) | DRG 560 ==
LOC: DL.MS 01:03
PROVIDERS: ADMIT Hospitalist; ATTEND Internal Medicine
DX: S82.842D Displaced bimalleolar fracture of left lower leg, subsequent encounter for closed fracture with routine healing (principal); I50.32 Chronic diastolic (congestive) heart failure; I13.0 Hypertensive heart and chronic kidney disease with heart failure and stage 1 through stage 4 chronic kidney disease, or unspecified chronic kidney disease; H54.7 Unspecified visual loss; N18.9 Chronic kidney disease, unspecified; M19.90 Unspecified osteoarthritis, unspecified site; M54.9 Dorsalgia, unspecified; G89.29 Other chronic pain; H40.9 Unspecified glaucoma; Z96.641 Presence of right artificial hip joint; R19.7 Diarrhea, unspecified; D50.9 Iron deficiency anemia, unspecified; J44.9 Chronic obstructive pulmonary disease, unspecified; G47.33 Obstructive sleep apnea (adult) (pediatric); G62.9 Polyneuropathy, unspecified; N32.81 Overactive bladder; J84.10 Pulmonary fibrosis, unspecified; Z88.1 Allergy status to other antibiotic agents; Z79.82 Long term (current) use of aspirin; Z79.899 Other long term (current) drug therapy; Z90.710 Acquired absence of both cervix and uterus; Z28.82 Immunization not carried out because of caregiver refusal
CPT/HCPCS: 36415; 80053; 81003; 82272; 82607; 82728; 82746; 83540; 83550; 84439; 84443; 85018; 85025; 85610; 85730; 97110-GP; 97162-GP; 97166-GO; 97530-GO; 97530-GP; 97535-GO; A9270-GY; J1644

== ENCOUNTER 2021-12-14 15:23 | Inpatient (IN) | payer MEDICARE, OTHER ==
[~2021-12-14 15:23] MED LIST: Acetaminophen 500 MG Tab PO ONE; Sodium Chloride 0.9% 1,000 ML IV ONE
[2021-12-14 15:47] LABS: ANION GAP 10.1 mEq/L (7-13); CHLORIDE,CL 99 mmol/L (98-107); SODIUM,NA 141 mmol/L (136-145)
[2021-12-14 15:48] LABS: ESTIMATED GFR 35 mL/min (>=60)
[2021-12-14] MEDS ORDERED: Potassium Chloride 10 MEQ Tab.ER PO ONE (15:54)
[2021-12-14] MEDS: Sodium Chloride 0.9% 10 ML Syringe FLUSH PRN ×2 (16:08→17:07)
[2021-12-14] MEDS ORDERED: Piperacillin/Tazobactam 3.375 GM in Sodium Chloride 0.9% 100 ML IV ONE (16:34)
[2021-12-14] MEDS ORDERED: Acetaminophen/HYDROcodone 325-5 MG Tab PO PRN (18:06)
[2021-12-14] MEDS ORDERED: Magnesium Hydroxide 400 MG/5 ML Susp 30 ML Cup PO PRN (18:08)
[2021-12-14] MEDS ORDERED: Polyethylene Glycol 3350 Powder 17 GM Packet PO PRN (18:08)
[2021-12-14] MEDS ORDERED: HYDROmorphone 0.5 MG/0.5 ML Syringe IVPUSH PRN (18:08)
[2021-12-14] MEDS ORDERED: Ondansetron 4 MG/2 ML SDV IVPUSH PRN (18:08)
[2021-12-14] MEDS ORDERED: Albuterol/Ipratropium 3.0-0.5 MG/3 ML Neb Soln NEB PRN (18:08)
[2021-12-14] MEDS ORDERED: Piperacillin/Tazobactam 3.375 GM in Sodium Chloride 0.9% 100 ML IV SCH (18:15)
[2021-12-14] MEDS ORDERED: Formoterol/Mometasone 100-5 MCG 8.8 GM Inhaler IH SCH (18:30)
[2021-12-14] MEDS: Saccharomyces Boulardii (Probiotic) 250 MG Cap PO SCH (21:19)
[2021-12-14] MEDS: Formoterol/Mometasone 100-5 MCG 8.8 GM Inhaler IH SCH (21:21)
[2021-12-14] MEDS: Latanoprost 0.005% Ophth Soln 2.5 ML Bottle EYEBOTH SCH (21:22)
[2021-12-14] MEDS ORDERED: Sodium Chloride 0.9% 1,000 ML IV SCH (21:30)
[2021-12-15] MEDS: Piperacillin/Tazobactam 3.375 GM in Sodium Chloride 0.9% 100 ML IV SCH ×5 (00:05→23:12)
[2021-12-15] MEDS: Pantoprazole 40 MG Tab.CR PO SCH (06:08)
[2021-12-15 07:24] LABS: ANION GAP 7.8 mEq/L (7-13)
[2021-12-15] MEDS: Formoterol/Mometasone 100-5 MCG 8.8 GM Inhaler IH SCH ×2 (07:49→17:24)
[2021-12-15] MEDS: Gabapentin 100 MG Cap PO SCH ×5 (07:51→20:39)
[2021-12-15] MEDS: amLODIPine 5 MG Tab PO SCH (07:59)
[2021-12-15] MEDS: Enoxaparin 30 MG/0.3 ML Syringe SUBCUT SCH (07:59)
[2021-12-15] MEDS: Saccharomyces Boulardii (Probiotic) 250 MG Cap PO SCH ×2 (07:59→20:38)
[2021-12-15] MEDS: Atenolol 50 MG Tab PO SCH (07:59)
[2021-12-15] MEDS: Aspirin 325 MG Tab PO SCH (07:59)
[2021-12-15] MEDS ORDERED: Enoxaparin 40 MG/0.4 ML Syringe SUBCUT SCH (09:00)
[2021-12-15] MEDS ORDERED: Non-Formulary Medication 1 Each (Trospium Chloride [Trospium Chloride] 20 MG Tablet) PO SCH (09:00)
[2021-12-15] MEDS: Acetaminophen 325 MG Tab PO PRN ×2 (11:41→17:37)
[2021-12-15] MEDS ORDERED: Nystatin Topical Powder 30 GM Bottle TOP PRN (20:03)
[2021-12-15] MEDS: Latanoprost 0.005% Ophth Soln 2.5 ML Bottle EYEBOTH SCH (20:40)
[2021-12-15] MEDS ORDERED: Formoterol/Mometasone 100-5 MCG 8.8 GM Inhaler IH SCH (21:00)
[2021-12-15] MEDS: Sodium Chloride 0.9% 10 ML Syringe FLUSH PRN (23:15)
[2021-12-16] MEDS: Piperacillin/Tazobactam 3.375 GM in Sodium Chloride 0.9% 100 ML IV SCH ×3 (05:20→17:31)
[2021-12-16] MEDS: Pantoprazole 40 MG Tab.CR PO SCH (05:24)
[2021-12-16] MEDS: Acetaminophen 325 MG Tab PO PRN (06:34)
[2021-12-16 07:09] LABS: ANION GAP 8.7 mEq/L (7-13)
[2021-12-16] MEDS: amLODIPine 5 MG Tab PO SCH (09:43)
[2021-12-16] MEDS: Saccharomyces Boulardii (Probiotic) 250 MG Cap PO SCH ×2 (09:44→21:23)
[2021-12-16] MEDS: Gabapentin 100 MG Cap PO SCH ×3 (09:44→21:23)
[2021-12-16] MEDS: Atenolol 50 MG Tab PO SCH (09:44)
[2021-12-16] MEDS: Aspirin 325 MG Tab PO SCH (09:44)
[2021-12-16] MEDS: Enoxaparin 30 MG/0.3 ML Syringe SUBCUT SCH (09:45)
[2021-12-16] MEDS: Formoterol/Mometasone 100-5 MCG 8.8 GM Inhaler IH SCH ×2 (09:46→17:29)
[2021-12-16] MEDS: Sodium Chloride 0.9% 10 ML Syringe FLUSH PRN ×2 (12:09→17:31)
[2021-12-16] MEDS: Latanoprost 0.005% Ophth Soln 2.5 ML Bottle EYEBOTH SCH (21:23)
[2021-12-17] MEDS: Piperacillin/Tazobactam 3.375 GM in Sodium Chloride 0.9% 100 ML IV SCH ×2 (00:28→06:12)
[2021-12-17] MEDS: Pantoprazole 40 MG Tab.CR PO SCH (06:12)
[2021-12-17] MEDS: Formoterol/Mometasone 100-5 MCG 8.8 GM Inhaler IH SCH (06:12)
[2021-12-17] MEDS: Atenolol 50 MG Tab PO SCH (09:50)
[2021-12-17] MEDS: amLODIPine 5 MG Tab PO SCH (09:50)
[2021-12-17] MEDS: Gabapentin 100 MG Cap PO SCH (09:51)
[2021-12-17] MEDS: Saccharomyces Boulardii (Probiotic) 250 MG Cap PO SCH (09:51)
[2021-12-17] MEDS: Enoxaparin 30 MG/0.3 ML Syringe SUBCUT SCH (09:51)
[2021-12-17] MEDS: Aspirin 325 MG Tab PO SCH (09:51)
== END 2021-12-17 10:40 | disposition home or self-care (01) | DRG 698 ==
LOC: DL.ED 15:23 → DL.MS 16:55
PROVIDERS: ADMIT Internal Medicine; ATTEND Internal Medicine
DX: A41.9 Sepsis, unspecified organism (principal); T83.593A Infection and inflammatory reaction due to other urinary stents, initial encounter; A41.81 Sepsis due to Enterococcus; R41.82 Altered mental status, unspecified; G93.41 Metabolic encephalopathy; I10 Essential (primary) hypertension; N17.9 Acute kidney failure, unspecified; E87.2 Acidosis; N39.0 Urinary tract infection, site not specified; E87.6 Hypokalemia; E88.09 Other disorders of plasma-protein metabolism, not elsewhere classified; Z20.822 Contact with and (suspected) exposure to COVID-19; R31.9 Hematuria, unspecified; J44.9 Chronic obstructive pulmonary disease, unspecified; G47.33 Obstructive sleep apnea (adult) (pediatric); K21.9 Gastro-esophageal reflux disease without esophagitis; M19.90 Unspecified osteoarthritis, unspecified site; J84.10 Pulmonary fibrosis, unspecified; N18.9 Chronic kidney disease, unspecified; I12.9 Hypertensive chronic kidney disease with stage 1 through stage 4 chronic kidney disease, or unspecified chronic kidney disease; E66.9 Obesity, unspecified; G50.0 Trigeminal neuralgia; Z96.641 Presence of right artificial hip joint; G62.9 Polyneuropathy, unspecified; Z98.49 Cataract extraction status, unspecified eye; Z99.81 Dependence on supplemental oxygen; Z79.82 Long term (current) use of aspirin; Z95.5 Presence of coronary angioplasty implant and graft; Z68.31 Body mass index [BMI] 31.0-31.9, adult; Z93.6 Other artificial openings of urinary tract status; Z88.1 Allergy status to other antibiotic agents; Z79.899 Other long term (current) drug therapy
CPT/HCPCS: 36415; 51702; 71045; 80053; 81001; 82947; 83605; 83735; 83880; 84145; 85025; 86140; 87040; 87086; 87088; 87186; 96361; 96365; 97161-GP; 97165-GO; 99284; 99285-25; A9270-GY; J1650; J2543; J3490; J7030; U0002

== ENCOUNTER 2022-03-06 21:56 | Emergency (ER) | payer MEDICARE, OTHER | END 2022-03-06 22:08 | LOC: DL.ED 21:56 | DX: Z53.21 Procedure and treatment not carried out due to patient leaving prior to being seen by health care provider (principal) ==

== ENCOUNTER 2022-03-10 19:46 | Inpatient (IN) | payer MEDICARE, OTHER ==
[2022-03-10] MEDS ORDERED: Sodium Chloride 0.9% 10 ML Syringe FLUSH PRN (19:58)
[2022-03-10 20:45] LABS: ANION GAP 10.6 mEq/L (7-13)
[2022-03-10] MEDS ORDERED: Potassium Chloride 10 MEQ Tab.ER PO ONE (21:29)
[2022-03-10] MEDS ORDERED: Sodium Chloride 0.9% 1,000 ML IV ONE (21:40)
[2022-03-10] MEDS ORDERED: Piperacillin/Tazobactam 3.375 GM in Sodium Chloride 0.9% 100 ML IV ONE (21:43)
[2022-03-10] MEDS ORDERED: Sodium Chloride 0.9% 100 ML ONE (22:01)
[2022-03-10] MEDS ORDERED: Bisacodyl 5 MG Tab PO PRN (23:14)
[2022-03-10] MEDS ORDERED: Polyethylene Glycol 3350 Powder 17 GM Packet PO PRN (23:14)
[2022-03-10] MEDS ORDERED: Albuterol/Ipratropium 3.0-0.5 MG/3 ML Neb Soln NEB PRN (23:14)
[2022-03-10] MEDS ORDERED: Ondansetron 4 MG/2 ML SDV IVPUSH PRN (23:14)
[2022-03-10] MEDS ORDERED: Magnesium Hydroxide 400 MG/5 ML Susp 30 ML Cup PO PRN (23:14)
[2022-03-10] MEDS ORDERED: HYDROmorphone 0.5 MG/0.5 ML Syringe IVPUSH PRN (23:14)
[2022-03-10] MEDS ORDERED: Acetaminophen/HYDROcodone 325-5 MG Tab PO PRN (23:14)
[2022-03-10] MEDS ORDERED: guaiFENesin/Dextromethorphan 100-10 MG/5 ML Soln 5 ML Cup PO PRN (23:26)
[2022-03-10] MEDS ORDERED: Metoprolol Tartrate 5 MG/5 ML SDV IVPUSH PRN (23:27)
[2022-03-10] MEDS ORDERED: hydrALAZINE 20 MG/ML SDV IVPUSH PRN (23:27)
[2022-03-10] MEDS ORDERED: Sodium Chloride 0.9% 1,000 ML IV SCH (23:45)
[2022-03-11] MEDS: Piperacillin/Tazobactam 2.25 GM in Sodium Chloride 0.9% 50 ML IV SCH ×5 (00:30→23:37)
[2022-03-11] MEDS: Acetaminophen 325 MG Tab PO PRN ×2 (01:19→20:59)
[2022-03-11] MEDS ORDERED: Piperacillin/Tazobactam 3.375 GM in Sodium Chloride 0.9% 100 ML IV SCH (06:00)
[2022-03-11 08:05] LABS: ANION GAP 6.9 mEq/L (7-13)
[2022-03-11] MEDS ORDERED: Potassium Chloride 10 MEQ Tab.ER PO ONE (08:13)
[2022-03-11] MEDS ORDERED: Acetaminophen 500 MG Tab PO PRN (08:17)
[2022-03-11] MEDS ORDERED: Albuterol 0.083% 2.5 MG/3 ML Neb Soln NEB PRN (08:17)
[2022-03-11] MEDS: Saccharomyces Boulardii (Probiotic) 250 MG Cap PO SCH ×2 (08:30→21:00)
[2022-03-11] MEDS ORDERED: Non-Formulary Medication 1 Each (Trospium Chloride [Trospium Chloride] 20 MG Tablet) PO SCH (09:00)
[2022-03-11] MEDS ORDERED: NINTEDANIB ESYLATE 150 MG PO SCH (09:00)
[2022-03-11] MEDS: Furosemide 20 MG Tab PO SCH (10:22)
[2022-03-11] MEDS: Folic Acid 1 MG Tab PO SCH (10:23)
[2022-03-11] MEDS: carBAMazepine 200 MG Tab PO SCH ×3 (10:24→21:00)
[2022-03-11] MEDS: amLODIPine 5 MG Tab PO SCH (10:25)
[2022-03-11] MEDS: Atenolol 50 MG Tab PO SCH (10:26)
[2022-03-11] MEDS: Formoterol/Mometasone 200-5 MCG 8.8 GM Inhaler IH SCH ×2 (10:27→21:04)
[2022-03-11] MEDS: Nystatin Topical Powder 30 GM Bottle TOP SCH ×2 (12:17→21:04)
[2022-03-11] MEDS ORDERED: Gabapentin 300 MG Cap PO SCH (14:00)
[2022-03-11] MEDS: Gabapentin 300 MG Cap PO SCH (20:59)
[2022-03-11] MEDS: Latanoprost 0.005% Ophth Soln 2.5 ML Bottle EYEBOTH SCH (21:06)
[2022-03-12] MEDS: Omeprazole 20 MG Cap.CR PO SCH (05:50)
[2022-03-12] MEDS: Piperacillin/Tazobactam 2.25 GM in Sodium Chloride 0.9% 50 ML IV SCH ×3 (05:52→21:39)
[2022-03-12 06:46] LABS: ANION GAP 9.8 mEq/L (7-13)
[2022-03-12] MEDS: Saccharomyces Boulardii (Probiotic) 250 MG Cap PO SCH ×2 (11:18→21:39)
[2022-03-12] MEDS: Gabapentin 300 MG Cap PO SCH ×3 (11:19→21:39)
[2022-03-12] MEDS: amLODIPine 5 MG Tab PO SCH (11:19)
[2022-03-12] MEDS: Furosemide 20 MG Tab PO SCH (11:19)
[2022-03-12] MEDS: Atenolol 50 MG Tab PO SCH (11:20)
[2022-03-12] MEDS: carBAMazepine 200 MG Tab PO SCH ×3 (11:20→21:39)
[2022-03-12] MEDS: Formoterol/Mometasone 200-5 MCG 8.8 GM Inhaler IH SCH ×2 (11:22→21:35)
[2022-03-12] MEDS: Folic Acid 1 MG Tab PO SCH (11:43)
[2022-03-12] MEDS: Nystatin Topical Powder 30 GM Bottle TOP SCH ×2 (19:12→21:34)
[2022-03-12] MEDS ORDERED: Vancomycin 1 GM SDV ONE (21:10)
[2022-03-12] MEDS: Latanoprost 0.005% Ophth Soln 2.5 ML Bottle EYEBOTH SCH (21:35)
[2022-03-13] MEDS: Piperacillin/Tazobactam 2.25 GM in Sodium Chloride 0.9% 50 ML IV SCH ×4 (00:31→17:14)
[2022-03-13] MEDS: Omeprazole 20 MG Cap.CR PO SCH (05:16)
[2022-03-13 07:09] LABS: ANION GAP 7.9 mEq/L (7-13)
[2022-03-13] MEDS: Formoterol/Mometasone 200-5 MCG 8.8 GM Inhaler IH SCH ×2 (09:31→21:04)
[2022-03-13] MEDS: Saccharomyces Boulardii (Probiotic) 250 MG Cap PO SCH ×2 (09:33→21:08)
[2022-03-13] MEDS: Atenolol 50 MG Tab PO SCH (09:34)
[2022-03-13] MEDS: Folic Acid 1 MG Tab PO SCH (09:34)
[2022-03-13] MEDS: Furosemide 20 MG Tab PO SCH (09:36)
[2022-03-13] MEDS: amLODIPine 5 MG Tab PO SCH (09:36)
[2022-03-13] MEDS: carBAMazepine 200 MG Tab PO SCH ×3 (09:36→21:08)
[2022-03-13] MEDS: Nystatin Topical Powder 30 GM Bottle TOP SCH ×2 (09:37→21:09)
[2022-03-13] MEDS: Gabapentin 300 MG Cap PO SCH ×3 (09:37→21:08)
[2022-03-13] MEDS: Latanoprost 0.005% Ophth Soln 2.5 ML Bottle EYEBOTH SCH (21:05)
[2022-03-14] MEDS: Piperacillin/Tazobactam 2.25 GM in Sodium Chloride 0.9% 50 ML IV SCH ×2 (00:29→05:30)
[2022-03-14] MEDS: Omeprazole 20 MG Cap.CR PO SCH (05:29)
[2022-03-14 07:15] LABS: ANION GAP 7.8 mEq/L (7-13)
[2022-03-14] MEDS: Saccharomyces Boulardii (Probiotic) 250 MG Cap PO SCH (09:59)
[2022-03-14] MEDS: carBAMazepine 200 MG Tab PO SCH (10:00)
[2022-03-14] MEDS: Folic Acid 1 MG Tab PO SCH (10:00)
[2022-03-14] MEDS: Gabapentin 300 MG Cap PO SCH (10:00)
[2022-03-14] MEDS: Atenolol 50 MG Tab PO SCH (10:00)
[2022-03-14] MEDS: amLODIPine 5 MG Tab PO SCH (10:00)
[2022-03-14] MEDS: Furosemide 20 MG Tab PO SCH (10:00)
[2022-03-14] MEDS: Formoterol/Mometasone 200-5 MCG 8.8 GM Inhaler IH SCH (10:06)
== END 2022-03-14 14:35 | disposition home or self-care (01) | DRG 871 ==
LOC: DL.ED 19:46 → DL.MS 21:59 → UNDOADMIN 23:13 → UNDODISIN 03-14 14:35
PROVIDERS: ADMIT Internal Medicine; ATTEND Internal Medicine
DX: A41.9 Sepsis, unspecified organism (principal); R65.20 Severe sepsis without septic shock; A40.8 Other streptococcal sepsis; G92.8 Other toxic encephalopathy; G47.39 Other sleep apnea; J18.9 Pneumonia, unspecified organism; N30.00 Acute cystitis without hematuria; N17.9 Acute kidney failure, unspecified; E87.20 Acidosis, unspecified; J44.0 Chronic obstructive pulmonary disease with (acute) lower respiratory infection; H54.7 Unspecified visual loss; D63.1 Anemia in chronic kidney disease; H40.9 Unspecified glaucoma; G47.33 Obstructive sleep apnea (adult) (pediatric); I12.9 Hypertensive chronic kidney disease with stage 1 through stage 4 chronic kidney disease, or unspecified chronic kidney disease; M79.7 Fibromyalgia; K21.9 Gastro-esophageal reflux disease without esophagitis; N39.3 Stress incontinence (female) (male); M19.90 Unspecified osteoarthritis, unspecified site; G62.9 Polyneuropathy, unspecified; G50.0 Trigeminal neuralgia; G89.29 Other chronic pain; M54.9 Dorsalgia, unspecified; Z20.822 Contact with and (suspected) exposure to COVID-19; N18.9 Chronic kidney disease, unspecified; I51.7 Cardiomegaly; E66.9 Obesity, unspecified; Z96.0 Presence of urogenital implants; E88.09 Other disorders of plasma-protein metabolism, not elsewhere classified; E87.6 Hypokalemia; R73.9 Hyperglycemia, unspecified; Z96.641 Presence of right artificial hip joint; Z87.440 Personal history of urinary (tract) infections; Z79.82 Long term (current) use of aspirin; Z79.899 Other long term (current) drug therapy; Z95.5 Presence of coronary angioplasty implant and graft; Z85.42 Personal history of malignant neoplasm of other parts of uterus; Z99.3 Dependence on wheelchair; Z68.30 Body mass index [BMI] 30.0-30.9, adult; Z88.1 Allergy status to other antibiotic agents
CPT/HCPCS: 36415; 71045; 80053; 81001; 83605; 83735; 83880; 84145; 85025; 86140; 87040 ×2; 87086; 87088 ×2; 87186; 93005; 96361; 96365; 99285; A9270; J2543; J3370; J7030; J7040; U0002; 80048; 80202; 99223; 99232; 99238; J3490; J7050

== ENCOUNTER 2022-03-25 23:37 | Inpatient (IN) | payer OTHER, MEDICARE ==
[2022-03-25] MEDS ORDERED: Sodium Chloride 0.9% 10 ML Syringe FLUSH PRN (23:54)
[2022-03-26 00:28] LABS: ANION GAP 5.8 mEq/L (7-13)
[2022-03-26 00:46] LABS: CORONAVIRUS COVID-19 NAA NEGATIVE (NEGATIVE); RESPIRATORY SYNCYTIAL VIR NAA NEGATIVE (NEGATIVE)
[2022-03-26] MEDS ORDERED: Potassium Chloride 10 MEQ Tab.ER PO ONE (01:50)
[2022-03-26] MEDS ORDERED: cefTRIAXone 1 GM in Sodium Chloride 0.9% 100 ML IV ONE (03:00)
[2022-03-26] MEDS ORDERED: Acetaminophen 325 MG Tab PO PRN (06:20)
[2022-03-26] MEDS ORDERED: Ondansetron 4 MG/2 ML SDV IVPUSH PRN (06:20)
[2022-03-26] MEDS ORDERED: Albuterol/Ipratropium 3.0-0.5 MG/3 ML Neb Soln NEB PRN (06:20)
[2022-03-26] MEDS ORDERED: Acetaminophen/HYDROcodone 325-5 MG Tab PO PRN (06:20)
[2022-03-26] MEDS ORDERED: Magnesium Hydroxide 400 MG/5 ML Susp 30 ML Cup PO PRN (06:20)
[2022-03-26] MEDS ORDERED: Polyethylene Glycol 3350 Powder 17 GM Packet PO PRN (06:20)
[2022-03-26 08:06] LABS: HEMOGLOBIN A1C 5.6 % (<5.7)
[2022-03-26] MEDS: Piperacillin/Tazobactam 3.375 GM in Sodium Chloride 0.9% 100 ML IV SCH ×2 (11:45→17:09)
[2022-03-26] MEDS ORDERED: NINTEDANIB ESYLATE 150 MG PO SCH (21:00)
[2022-03-26] MEDS: Gabapentin 300 MG Cap PO SCH (21:20)
[2022-03-26] MEDS: carBAMazepine 200 MG Tab PO SCH (21:20)
[2022-03-26] MEDS: TROSPIUM 20 MG PO SCH (21:21)
[2022-03-26] MEDS: Latanoprost 0.005% Ophth Soln 2.5 ML Bottle EYEBOTH SCH (21:22)
[2022-03-27] MEDS: Piperacillin/Tazobactam 3.375 GM in Sodium Chloride 0.9% 100 ML IV SCH ×4 (00:47→18:44)
[2022-03-27] MEDS ORDERED: Potassium Chloride 20 MEQ in Premix Bag 1 BAG IV SCH (05:00)
[2022-03-27] MEDS: Omeprazole 20 MG Cap.CR PO SCH (06:04)
[2022-03-27 06:57] LABS: ANION GAP 6.8 mEq/L (7-13)
[2022-03-27] MEDS: carBAMazepine 200 MG Tab PO SCH ×3 (09:40→20:48)
[2022-03-27] MEDS: amLODIPine 5 MG Tab PO SCH (09:41)
[2022-03-27] MEDS: Folic Acid 1 MG Tab PO SCH (09:41)
[2022-03-27] MEDS: Gabapentin 300 MG Cap PO SCH ×2 (09:41→15:58)
[2022-03-27] MEDS: Furosemide 20 MG Tab PO SCH (09:42)
[2022-03-27] MEDS: Atenolol 25 MG Tab PO SCH (09:42)
[2022-03-27] MEDS: TROSPIUM 20 MG PO SCH ×2 (16:06→20:54)
[2022-03-27] MEDS ORDERED: Potassium Chloride 10 MEQ Tab.ER PO ONE (17:00)
[2022-03-27] MEDS ORDERED: Potassium Chloride 20 MEQ in Premix Bag 1 BAG IV ONE ×2 (19:14→21:00)
[2022-03-27] MEDS: Gabapentin 100 MG Cap PO SCH (20:48)
[2022-03-27] MEDS: Latanoprost 0.005% Ophth Soln 2.5 ML Bottle EYEBOTH SCH (20:49)
[2022-03-28] MEDS: Piperacillin/Tazobactam 3.375 GM in Sodium Chloride 0.9% 100 ML IV SCH ×3 (00:47→13:27)
[2022-03-28] MEDS: Omeprazole 20 MG Cap.CR PO SCH (06:12)
[2022-03-28 06:58] LABS: ANION GAP 5.6 mEq/L (7-13)
[2022-03-28] MEDS: Furosemide 20 MG Tab PO SCH (08:54)
[2022-03-28] MEDS: Folic Acid 1 MG Tab PO SCH (08:54)
[2022-03-28] MEDS: Gabapentin 100 MG Cap PO SCH ×2 (08:55→15:23)
[2022-03-28] MEDS: amLODIPine 5 MG Tab PO SCH (08:55)
[2022-03-28] MEDS: Atenolol 25 MG Tab PO SCH (08:56)
[2022-03-28] MEDS: carBAMazepine 200 MG Tab PO SCH ×2 (08:56→15:23)
[2022-03-28] MEDS: TROSPIUM 20 MG PO SCH (09:00)
[2022-03-28] MEDS ORDERED: FLUTICASONE INH SCH (10:15)
[2022-03-28] MEDS ORDERED: VILANTEROL INH SCH (10:15)
[2022-03-28] MEDS ORDERED: Ciprofloxacin 500 MG Tab PO ONE (10:55)
== END 2022-03-28 15:40 | disposition home or self-care (01) | DRG 683 ==
LOC: DL.ED 23:37 → DL.MS 03-26 05:46
PROVIDERS: ADMIT Internal Medicine; ATTEND Internal Medicine
DX: N17.9 Acute kidney failure, unspecified (principal); N39.0 Urinary tract infection, site not specified; E88.09 Other disorders of plasma-protein metabolism, not elsewhere classified; E66.9 Obesity, unspecified; E87.6 Hypokalemia; Z20.822 Contact with and (suspected) exposure to COVID-19; R73.9 Hyperglycemia, unspecified; I12.9 Hypertensive chronic kidney disease with stage 1 through stage 4 chronic kidney disease, or unspecified chronic kidney disease; N18.30 Chronic kidney disease, stage 3 unspecified; H54.7 Unspecified visual loss; R74.8 Abnormal levels of other serum enzymes; D63.1 Anemia in chronic kidney disease; H40.9 Unspecified glaucoma; J44.9 Chronic obstructive pulmonary disease, unspecified; R06.89 Other abnormalities of breathing; G47.33 Obstructive sleep apnea (adult) (pediatric); J84.10 Pulmonary fibrosis, unspecified; N39.3 Stress incontinence (female) (male); Z96.641 Presence of right artificial hip joint; M19.90 Unspecified osteoarthritis, unspecified site; G62.9 Polyneuropathy, unspecified; G50.0 Trigeminal neuralgia; G89.29 Other chronic pain; M54.9 Dorsalgia, unspecified; M40.209 Unspecified kyphosis, site unspecified; Z68.30 Body mass index [BMI] 30.0-30.9, adult; Z87.01 Personal history of pneumonia (recurrent); Z98.49 Cataract extraction status, unspecified eye; Z87.440 Personal history of urinary (tract) infections; Z79.899 Other long term (current) drug therapy
CPT/HCPCS: 0241U; 36415; 71045; 71250; 80053; 81001; 82306; 83036; 83605; 83735; 85025; 86140; 87086; 87088; 87186; 96365; 99238; 99285-25; A9270-GY; J0696; J2543; J3480; J3490

== ENCOUNTER 2022-09-24 01:23 | Emergency (ER) | payer MEDICARE ==
[2022-09-24 03:05] LABS: APPEARANCE,URINE CLOUDY (CLEAR); BILIRUBIN,URINE NEGATIVE (NEGATIVE); COLOR,URINE YELLOW (YELLOW); GLUCOSE,URINE NEGATIVE (NEGATIVE); KETONES,URINE NEGATIVE (NEGATIVE); LEUKOCYTE ESTERASE,URINE LARGE (NEGATIVE); NITRITE,URINE NEGATIVE (NEGATIVE); OCCULT BLOOD,URINE LARGE (NEGATIVE); PH,URINE 6.5 (5.0-9.0); PROTEIN,URINE 100 (NEGATIVE); UROBILINOGEN,URINE 0.2 mg/dL (0.2-1.0)
[2022-09-24 03:12] LABS: BACTERIA,URINE MANY /HPF (0-FEW/HPF); EPITHELIAL CELLS,URINE MODERATE /HPF (NOT SEEN); RBC,URINE SEMI-PACKED /HPF (0-5); WBC,URINE PACKED /HPF (0-5/HPF)
[2022-09-24 03:13] LABS: AMORPHOUS SEDIMENT,URINE FEW /HPF (NOT SEEN); MUCUS,URINE MODERATE /LPF (NOT SEEN)
[2022-09-24] MEDS ORDERED: Take Home: Nitrofurantoin Monohydrate/Macrocrystalline 100 MG, 6 Cap Pack PO ONE (03:15)
== END 2022-09-24 03:40 | disposition home or self-care (01) ==
LOC: DL.ED 01:23
DX: N30.00 Acute cystitis without hematuria (principal); I11.9 Hypertensive heart disease without heart failure; I12.9 Hypertensive chronic kidney disease with stage 1 through stage 4 chronic kidney disease, or unspecified chronic kidney disease; N18.9 Chronic kidney disease, unspecified; K21.9 Gastro-esophageal reflux disease without esophagitis; Z88.1 Allergy status to other antibiotic agents; Z79.899 Other long term (current) drug therapy
CPT/HCPCS: 81001; 99284; A9270-GY

== ENCOUNTER 2022-09-25 20:44 | Inpatient (IN) | payer MEDICARE ==
[2022-09-25] MEDS ORDERED: Albuterol/Ipratropium 3.0-0.5 MG/3 ML Neb Soln NEB ONE (21:10)
[2022-09-25 21:44] LABS: BASOPHILS PERCENT AUTO 0.1 % (0.0-1.0); EOSINOPHILS PERCENT AUTO 0.2 % (1.0-3.0); HEMATOCRIT 34.2 % (37.0-47.0); HEMOGLOBIN 10.4 g/dL (12.0-16.0); MEAN CORPUSCULAR HEMOGLOBIN 29.2 pg (27.0-34.0); MEAN CORPUSCULAR HGB CONC 30.4 g/dL (33.0-35.0); MEAN CORPUSCULAR VOLUME 96.1 fL (80-100); MONOCYTES PERCENT AUTO 6.7 % (2-8); PLATELET COUNT,PLT 174 10^3/uL (150-450); RED BLOOD CELL COUNT 3.56 10^6/uL (4.2-5.4); WHITE BLOOD CELL COUNT,WBC 14.6 10^3/uL (5.0-10.0)
[2022-09-25] MEDS ORDERED: cefTRIAXone 2 GM Vial IVPUSH ONE (21:59)
[2022-09-25] MEDS ORDERED: Azithromycin 250 MG Tab PO ONE (22:00)
[2022-09-25 22:10] LABS: LACTIC ACID 1.6 mmol/L (0.4-2.0)
[2022-09-25 22:17] LABS: ALBUMIN 2.7 g/dL (3.4-5.0); ANION GAP 10.3 mEq/L (7-13); BILIRUBIN TOTAL 0.6 mg/dL (0.2-1.0); BUN/CREATININE RATIO 12.8 (No establ ref range); CREATININE 1.41 mg/dL (0.55-1.02); EST CRCL DRUG DOSING (CG) 29.29 mL/min; POTASSIUM,K 4.3 mmol/L (3.5-5.1); PROTEIN TOTAL,TP 7.4 g/dL (6.4-8.2)
[2022-09-25 22:20] LABS: A/G RATIO 0.57; C-REACTIVE PROTEIN 23.5 mg/dL (0.0-0.9)
[2022-09-26] MEDS ORDERED: Ondansetron 4 MG Tab.DIS PO PRN (00:34)
[2022-09-26] MEDS ORDERED: Acetaminophen 325 MG Tab PO PRN (00:34)
[2022-09-26] MEDS ORDERED: Docusate Sodium 100 MG Cap PO PRN (00:34)
[2022-09-26] MEDS ORDERED: Acetaminophen/HYDROcodone 325-5 MG Tab PO PRN (00:34)
[2022-09-26] MEDS: Sodium Chloride 0.9% 1,000 ML IV SCH ×2 (01:02→14:36)
[2022-09-26] MEDS: methylPREDNISolone Sodium Succinate 125 MG/2 ML SDV IVPUSH SCH ×3 (01:02→17:05)
[2022-09-26 02:41] LABS: APPEARANCE,URINE SLIGHTLY CLOUDY (CLEAR); BILIRUBIN,URINE NEGATIVE (NEGATIVE); COLOR,URINE DARK YELLOW (YELLOW); GLUCOSE,URINE NEGATIVE (NEGATIVE); KETONES,URINE TRACE (NEGATIVE); LEUKOCYTE ESTERASE,URINE LARGE (NEGATIVE); NITRITE,URINE NEGATIVE (NEGATIVE); OCCULT BLOOD,URINE MODERATE (NEGATIVE); PROTEIN,URINE 100 (NEGATIVE)
[2022-09-26 02:49] LABS: AMORPHOUS SEDIMENT,URINE FEW /HPF (NOT SEEN); BACTERIA,URINE MANY /HPF (0-FEW/HPF); EPITHELIAL CELLS,URINE MANY /HPF (NOT SEEN); MUCUS,URINE FEW /LPF (NOT SEEN); RBC,URINE SEMI-PACKED /HPF (0-5); WBC,URINE SEMI-PACKED /HPF (0-5/HPF)
[2022-09-26] MEDS: Albuterol/Ipratropium 3.0-0.5 MG/3 ML Neb Soln NEB SCH ×4 (03:07→17:05)
[2022-09-26] MEDS: Enoxaparin 30 MG/0.3 ML Syringe SUBCUT SCH (08:05)
[2022-09-26] MEDS: cefTRIAXone 1 GM Vial IVPUSH SCH (20:31)
[2022-09-26] MEDS: Azithromycin 500 MG in Sodium Chloride 0.9% 250 ML IV SCH (20:35)
[2022-09-27] MEDS: methylPREDNISolone Sodium Succinate 125 MG/2 ML SDV IVPUSH SCH ×3 (00:48→20:38)
[2022-09-27] MEDS: Albuterol/Ipratropium 3.0-0.5 MG/3 ML Neb Soln NEB SCH ×5 (00:48→17:53)
[2022-09-27] MEDS: Sodium Chloride 0.9% 1,000 ML IV SCH (03:09)
[2022-09-27 06:25] LABS: HEMATOCRIT 34.5 % (37.0-47.0); HEMOGLOBIN 10.5 g/dL (12.0-16.0); LYMPHOCYTES PERCENT AUTO 3.8 % (20.5-50.1); MEAN CORPUSCULAR HEMOGLOBIN 28.7 pg (27.0-34.0); MEAN CORPUSCULAR HGB CONC 30.4 g/dL (33.0-35.0); MEAN CORPUSCULAR VOLUME 94.3 fL (80-100); MONOCYTES PERCENT AUTO 1.7 % (2-8); NEUTROPHILS PERCENT AUTO 94.5 % (42.2-75.2); PLATELET COUNT,PLT 178 10^3/uL (150-450); RED BLOOD CELL COUNT 3.66 10^6/uL (4.2-5.4)
[2022-09-27 06:38] LABS: ANION GAP 12.6 mEq/L (7-13); CALCIUM 9.1 mg/dL (8.5-10.1); CREATININE 1.27 mg/dL (0.55-1.02); EST CRCL DRUG DOSING (CG) 32.52 mL/min; POTASSIUM,K 4.6 mmol/L (3.5-5.1)
[2022-09-27] MEDS: Enoxaparin 30 MG/0.3 ML Syringe SUBCUT SCH (09:05)
[2022-09-27] MEDS: cefTRIAXone 1 GM Vial IVPUSH SCH (20:38)
[2022-09-27] MEDS: Azithromycin 500 MG in Sodium Chloride 0.9% 250 ML IV SCH (20:39)
[2022-09-27] MEDS ORDERED: Sodium Chloride 0.9% 10 ML Syringe FLUSH PRN (20:39)
[2022-09-28] MEDS: Albuterol/Ipratropium 3.0-0.5 MG/3 ML Neb Soln NEB SCH ×3 (00:06→06:26)
[2022-09-28] MEDS: Enoxaparin 30 MG/0.3 ML Syringe SUBCUT SCH (07:59)
[2022-09-28] MEDS: methylPREDNISolone Sodium Succinate 125 MG/2 ML SDV IVPUSH SCH (07:59)
== END 2022-09-28 10:45 | disposition home or self-care (01) | DRG 194 ==
LOC: DL.ED 20:44 → DL.MS 23:44
PROVIDERS: ADMIT Internal Medicine; ATTEND Internal Medicine
DX: J18.9 Pneumonia, unspecified organism (principal); I42.9 Cardiomyopathy, unspecified; N39.0 Urinary tract infection, site not specified; Z20.822 Contact with and (suspected) exposure to COVID-19; H40.9 Unspecified glaucoma; J44.9 Chronic obstructive pulmonary disease, unspecified; H54.7 Unspecified visual loss; G47.30 Sleep apnea, unspecified; M19.90 Unspecified osteoarthritis, unspecified site; Z96.649 Presence of unspecified artificial hip joint; G89.29 Other chronic pain; M54.9 Dorsalgia, unspecified; Z98.49 Cataract extraction status, unspecified eye; Z90.710 Acquired absence of both cervix and uterus; Z88.1 Allergy status to other antibiotic agents; I12.9 Hypertensive chronic kidney disease with stage 1 through stage 4 chronic kidney disease, or unspecified chronic kidney disease; N18.9 Chronic kidney disease, unspecified; Z90.721 Acquired absence of ovaries, unilateral; K21.9 Gastro-esophageal reflux disease without esophagitis; Z99.81 Dependence on supplemental oxygen; Z79.899 Other long term (current) drug therapy
CPT/HCPCS: 36415; 71045; 80048; 80053; 81001; 83605; 83880; 85025; 86140; 87040; 87086; 87804; 94640; A9270-GY; J0456; J0696; J1650; J2930; J3490; J7030; J7050; J7620-GY; U0002

== ENCOUNTER 2023-07-09 02:15 | Emergency (ER) | payer BC, OTHER ==
[2023-07-09 02:52] LABS: EOSINOPHILS PERCENT AUTO 2.3 % (1.0-3.0); HEMOGLOBIN 11.3 g/dL (12.0-16.0); LYMPHOCYTES PERCENT AUTO 5.2 % (20.5-50.1); MEAN CORPUSCULAR HEMOGLOBIN 31.3 pg (27.0-34.0); MEAN CORPUSCULAR HGB CONC 30.5 g/dL (33.0-35.0); MEAN CORPUSCULAR VOLUME 102.5 fL (80-100); MONOCYTES PERCENT AUTO 3.8 % (2-8); NEUTROPHILS PERCENT AUTO 88.7 % (42.2-75.2); PLATELET COUNT,PLT 152 10^3/uL (150-450); RED BLOOD CELL COUNT 3.61 10^6/uL (4.2-5.4); WHITE BLOOD CELL COUNT,WBC 10.3 10^3/uL (5.0-10.0)
[2023-07-09 03:08] LABS: A/G RATIO 0.64; ALBUMIN 2.8 g/dL (3.4-5.0); ANION GAP 11.2 mEq/L (7-13); BILIRUBIN TOTAL 0.4 mg/dL (0.2-1.0); BUN/CREATININE RATIO 10.2 (No establ ref range); CALCIUM 8.8 mg/dL (8.5-10.1); CREATININE 1.18 mg/dL (0.55-1.02); EST CRCL DRUG DOSING (CG) 34.41 mL/min; MAGNESIUM 1.9 mg/dL (1.8-2.4); POTASSIUM,K 4.2 mmol/L (3.5-5.1); PROTEIN TOTAL,TP 7.2 g/dL (6.4-8.2)
[2023-07-09] MEDS: Sodium Chloride 0.9% 10 ML Syringe FLUSH PRN (03:21)
[2023-07-09] MEDS: Sodium Chloride 0.9% 1,000 ML IV SCH (03:21)
== END 2023-07-09 05:40 | disposition home or self-care (01) ==
LOC: DL.ED 02:15
DX: R41.0 Disorientation, unspecified (principal); R19.7 Diarrhea, unspecified; I12.9 Hypertensive chronic kidney disease with stage 1 through stage 4 chronic kidney disease, or unspecified chronic kidney disease; K21.9 Gastro-esophageal reflux disease without esophagitis; Z79.899 Other long term (current) drug therapy; Z88.1 Allergy status to other antibiotic agents
CPT/HCPCS: 36415; 80053; 82947; 83605; 83735; 85025; 96360; 99283; 99285; J7030; J3490

== ENCOUNTER 2023-07-11 03:49 | Emergency (ER) | payer MEDICARE, BC, OTHER ==
[2023-07-11] MEDS: Lactated Ringers 1,000 ML IV SCH (04:05)
[2023-07-11] MEDS: Sodium Chloride 0.9% 10 ML Syringe FLUSH PRN (04:06)
[2023-07-11 04:09] LABS: BASOPHILS PERCENT AUTO 0.1 % (0.0-1.0); EOSINOPHILS PERCENT AUTO 1.7 % (1.0-3.0); HEMATOCRIT 40.5 % (37.0-47.0); HEMOGLOBIN 12.6 g/dL (12.0-16.0); LYMPHOCYTES PERCENT AUTO 8.6 % (20.5-50.1); MEAN CORPUSCULAR HEMOGLOBIN 31.1 pg (27.0-34.0); MEAN CORPUSCULAR HGB CONC 31.1 g/dL (33.0-35.0); MONOCYTES PERCENT AUTO 6.6 % (2-8); PLATELET COUNT,PLT 161 10^3/uL (150-450); RED BLOOD CELL COUNT 4.05 10^6/uL (4.2-5.4)
[2023-07-11] MEDS: Ondansetron 4 MG/2 ML SDV IVPUSH ONE (04:12)
[2023-07-11 04:29] LABS: A/G RATIO 0.61; ANION GAP 10.4 mEq/L (7-13); BILIRUBIN TOTAL 0.9 mg/dL (0.2-1.0); BUN/CREATININE RATIO 11.2 (No establ ref range); CALCIUM 9.3 mg/dL (8.5-10.1); CREATININE 1.16 mg/dL (0.55-1.02); MAGNESIUM 1.8 mg/dL (1.8-2.4); POTASSIUM,K 4.4 mmol/L (3.5-5.1); PROTEIN TOTAL,TP 7.9 g/dL (6.4-8.2)
[2023-07-11] MEDS ORDERED: Magnesium Sulfate/D5W 1 GM/100 ML BAG IV ONE (05:09)
[2023-07-11 05:24] LABS: APPEARANCE,URINE CLOUDY (CLEAR); BILIRUBIN,URINE NEGATIVE (NEGATIVE); COLOR,URINE YELLOW (YELLOW); GLUCOSE,URINE NEGATIVE (NEGATIVE); KETONES,URINE NEGATIVE (NEGATIVE); LEUKOCYTE ESTERASE,URINE SMALL (NEGATIVE); NITRITE,URINE NEGATIVE (NEGATIVE); OCCULT BLOOD,URINE MODERATE (NEGATIVE); PH,URINE 6.5 (5.0-9.0); PROTEIN,URINE 30 (NEGATIVE); UROBILINOGEN,URINE 0.2 mg/dL (0.2-1.0)
[2023-07-11] MEDS: Magnesium Sulfate/D5W 1 GM IV ONE (05:24)
[2023-07-11 05:27] LABS: CORONAVIRUS COVID-19 NAA NEGATIVE (NEGATIVE); INFLUENZA A NAA NEGATIVE (NEGATIVE); INFLUENZA B NAA NEGATIVE (NEGATIVE)
[2023-07-11 05:32] LABS: AMORPHOUS SEDIMENT,URINE MODERATE /HPF (NOT SEEN); BACTERIA,URINE MODERATE /HPF (0-FEW/HPF); EPITHELIAL CELLS,URINE MANY /HPF (NOT SEEN); MUCUS,URINE FEW /LPF (NOT SEEN)
[2023-07-11] MEDS: cefTRIAXone 1 GM Vial IVPUSH ONE (06:30)
== END 2023-07-11 06:35 | disposition home or self-care (01) ==
LOC: DL.ED 03:49
DX: N39.0 Urinary tract infection, site not specified (principal); R11.2 Nausea with vomiting, unspecified; R19.7 Diarrhea, unspecified; I12.9 Hypertensive chronic kidney disease with stage 1 through stage 4 chronic kidney disease, or unspecified chronic kidney disease; N18.9 Chronic kidney disease, unspecified; Z79.899 Other long term (current) drug therapy; Z90.710 Acquired absence of both cervix and uterus; Z88.1 Allergy status to other antibiotic agents
CPT/HCPCS: 0240U; 36415; 80053; 81001; 83735; 84484; 85025; 87086; 93005; 93010; 96361; 96365; 96375; 99284; J0696; J2405; J3475; J7120; J3490